=== PATIENT | female | born 1945 | race Caucasian/White ===

== ENCOUNTER 2021-04-19 16:13 | Inpatient (IN) ==
[2021-04-19] MEDS ORDERED: SODIUM CHLORIDE 0.9% 1000ML 1,000 ML IV SCH (17:00)
[2021-04-19 17:07] LABS: Basophils # (auto) 0.01 K/uL (0-0.2); Basophils % (auto) 0.1 %; Eosinophils # (auto) 0.15 K/uL (0-0.5); Eosinophils % (auto) 1.3 %; Hematocrit (blood only) 39.7 % (37-47); Hemoglobin 12.4 g/dL (12.0-16.0); Immature Granulocytes # (auto) 0.04 K/uL (0.00-0.02); Immature Granulocytes % (auto) 0.4 %; Lymphocytes # (auto) 1.23 K/uL (1.2-3.4); Lymphocytes % (auto) 11.1 %; Mean Corpuscular Hemoglobin 28.4 pg (25-34); Mean Corpuscular Hgb Conc 31.2 g/dL (32-36); Mean Corpuscular Volume 90.8 fL (80-100); Mean Platelet Volume 10.1 fL (7.4-10.4); Monocytes # (auto) 0.73 K/uL (0.11-0.59); Monocytes % (auto) 6.6 %; Neutrophils # (auto) 8.97 K/uL (1.4-6.5); Neutrophils % (auto) 80.5 %; Platelet Count 292 K/uL (130-400); RDW Coefficient of Variation 13.6 % (11.5-14.5); RDW Standard Deviation 44.8 fL (36.4-46.3); Red Blood Count 4.37 M/uL (4.2-5.4); White Blood Count 11.13 K/uL (4.8-10.8)
[2021-04-19 17:25] LABS: Alanine Aminotransferase 17 U/L (12-78); Albumin Level 3.2 gm/dl (3.4-5.0); Aspartate Aminotransferase 12 U/L (15-37); BUN Creatinine Ratio 25.3 (10-20); Blood Urea Nitrogen 19 mg/dl (7-18); Calcium 8.9 mg/dl (8.5-10.1); Carbon Dioxide 32 mmol/L (21-32); Chloride 107 mmol/L (98-107); Creatinine Clr Calc Pharmacy 60.6 ml/min; Est GFR (African American) 88.9 ml/min; Est GFR (Non-African American) 76.7 ml/min; Glucose 87 mg/dl (70-99); Potassium 4.3 mmol/L (3.5-5.1); Sodium 140 mmol/L (136-145)
[2021-04-19 17:28] LABS: Appearance Urine Clear (Clear); Bilirubin Urine Negative (Negative); Blood Urine Negative (Negative); Color Urine Yellow; Glucose Urine UA Negative (Negative); Ketones Urine Negative (Negative); Leukocyte Esterase Urine Negative (Negative); Nitrite Urine Negative (Negative); Protein Urine Negative (Negative); Specific Gravity Urine 1.012 (1.000-1.030); Urobilinogen Urine Negative (Negative)
--- NOTE | 2021-04-19 17:34 | Emergency Department Note ---
Impression & Plan Ulcer of perineum, Sacral ulcer, Leukocytosis ED Provider Note INFORMANT: Patient ED PROVIDER(S): Laz Casper MD CHIEF COMPLAINT: Infection PLAN: Disposition: Admitted Condition: Good Outpatient prescription management: none Referral: None MEDICAL DECISION MAKING: Patient presented because of wounds on the perineum and sacrum. Examination revealed ulcerations there was surrounding erythema concerning for cellulitis. These were not improving with antifungal creams. Her intertrigo issues were responding to antifungals. The patient does have a leukocytosis. She was given a dose of IV Rocephin. CT imaging of the pelvis did not reveal any evidence of abscess or deep tissue involvement. The patient and friend and I discussed the findings. The patient has no support at home. The friend is very concerned about the patient's ability to care for herself. I discussed this with manager case. Admission for treatment and additional case management involvement was recommended. [facility] Patient was evaluated in the ER for further management. Triage Nursing notes reviewed and agree them. Vital Signs: reviewed and remarkable for hypertension Differential diagnosis: Pressure ulcers, fungal infection, cellulitis, abscess, MRSA infection, DVT, necrotizing fasciitis, dermatitis, drug eruption, allergic reaction, as well as other pathologies Diagnostics interpreted by me: ECG: Rate: 68 Rhythm:Normal sinus [place]:Normal QRS:Normal ST segements:No elevation or depression Other:No PACs or PVCs Cardiac Monitoring: Cardiac monitoring ordered by me: The patient was placed on continuous cardiac monitoring and observed. It revealed a normal sinus rhythm at 76 beats per minute without ectopy or evidence of dysrhythmia. Imaging studies: Chest x-ray. Findings: A chest x-ray was performed and revealed no pneumothorax, effusion, infiltrate, pulmonary edema, free air under the diaphragm, or wide mediastinum. Impression: No acute disease. CT scan of the pelvis is negative for acute process. HPI: The patient is a 75 year old female who presents to the Emergency Room with complaints of perineal wounds. This started about a week and a half ago and is worsening. The patient's friend that helps her with her bills visits once a month. She went in on 11 April and found the wounds after the patient was com plaining. She did take the patient to urgent care as she has currently been switching her primary care to the [facility] in [place]. They did prescribe antifungal creams because she also had redness in the skin folds of the abdomen and breast. The skin fold issues were getting better but the perineal issue was not. Patient also notes soreness in the sacral region as well. Patient does sit a lot. Caregiver was concerned as the patient does not have any family. She did have some support services however they were let go because she was not being assisted properly. She notes that the patient's home is very messy. The patient also notes the following associated symptoms, patien t denies. Current pain is rated as 4/10. Pt denies LOC, headache, fevers, chills, diaphoresis, visual changes, neck pain, chest pain, breathing difficulties, nausea, vomiting, abdominal pain, back pain, diarrhea, urinary symptoms, numbness, weakness, lymphadenopathy, rash, or other complaints. ROS: See above HPI for pertinent positives & negatives. A total of 10 systems reviewed and were otherwise negative. PAST MEDICAL HISTORY:See Below , hypertension PAST SURGICAL HISTORY:See Below, FAMILY HISTORY:See Below SOCIAL HISTORY:See Below, lives alone HOME MEDICATIONS:See Below ALLERGIES:See Below VITALS:See Below PHYSICAL EXAMINATION: GENERAL: Awake, alert, well-appearing, in no distress HENT: Normocephalic, atraumatic. Oropharynx unremarkable. EYES: Normal conjunctiva. Sclera non-icteric. NECK: Inspection normal. Non-tender. Supple. No nuchal rigidity. FROM. No masses. RESPIRATORY: Clear to auscultation. No wheezes. No rales. Normal respiratory effort. CARDIAC: Normal rate. Normal rhythm. No murmurs. No rubs. Extremities warm and well perfused. Pulses equal. No JVD. GI: Soft, non-distended. No tenderness to palpation. No rebound or guarding. No masses. RECTAL: Gluteal ulcerations noted. Hemorrhoids present. Mild surrounding erythema. Perineal ulcerations also noted. : There is vulvar ulcerations noted bilaterally. These are large and coalesced. No vesicles noted. MUSCULOSKELETAL: Atraumatic. Chest examination reveals no tenderness. The back is symmetrical on inspection without obvious abnormality. There is no CVA tenderness to palpation. No joint edema. LOWER EXTREMITIES: Calves are equal size bilaterally and non-tender. No edema. No discoloration. NEURO: Normal sensorium. No sensory or motor deficits noted. SKIN: No rash or jaundice noted. Lza Casper MD Past Med/Surg History Social History Smoking Status: Never smoker Feels Safe at Home: Yes Allergies Allergies Allergy/AdvReac Type Severity Reaction Status Date / Time fluconazole Allergy Rash Verified 04/19/21 19:20 Penicillins Allergy Unknown Verified 04/19/21 19:20 adhesive tape AdvReac skin Verified 04/19/21 19:19 irritation Home Meds Home Medications Medication Instructions Recorded Confirmed albuterol sulfate 2.5 mg CONTINUOUS NEBULIZATION Q4 04/19/21 04/19/21 PRN amitriptyline 25 mg tablet 25 mg PO HS 04/19/21 04/19/21 ascorbic acid (vitamin C) 500 mg 500 mg PO DAILY 04/19/21 04/19/21 tablet (Vitamin C) buspirone 5 mg tablet 5 mg PO TID 04/19/21 04/19/21 calcium carbonate 500 mg (1,250 1 tab PO DAILY 04/19/21 04/19/21 mg)-vitamin D3 400 unit tablet (Calcium 500 With D) cholecalciferol (vitamin D3) 25 25 mcg PO DAILY 04/19/21 04/19/21 mcg (1,000 unit) tablet (Vitamin D3) cholestyramine (with sugar) 4 gram 8 ea PO BID 04/19/21 04/19/21 powder for susp in a packet citalopram 20 mg tablet (Celexa) 20 mg PO DAILY 04/19/21 04/19/21 clotrimazole-betamethasone 1 1 applic TOPICAL UD 04/19/21 04/19/21 %-0.05 % topical cream denosumab 60 mg/mL subcutaneous 60 mg SUBCUT UD 04/19/21 04/19/21 syringe (Prolia) ferrous sulfate 325 mg (65 mg 325 mg PO DAILY 04/19/21 04/19/21 iron) tablet (iron) furosemide 40 mg tablet 60 mg PO DAILY 04/19/21 04/19/21 loratadine 10 mg tablet 10 mg PO DAILY 04/19/21 04/19/21 meloxicam 15 mg tablet (Mobic) 15 mg PO DAILY 04/19/21 04/19/21 methylcellulose (with sugar) oral 1 ea PO DAILY 04/19/21 04/19/21 powder packet mycophenolate mofetil 500 mg tablet 500 mg PO BID 04/19/21 04/19/21 nystatin 100,000 unit/gram topical 1 applic TOPICAL BID 04/19/21 04/19/21 cream omeprazole 20 mg capsule,delayed 20 mg PO DAILY 04/19/21 04/19/21 release potassium chloride 20 mEq 20 meq PO DAILY 04/19/21 04/19/21 tablet,extended release(part/cryst) tacrolimus 0.1 % topical ointment 1 applic TOPICAL UD PRN 04/19/21 04/19/21 zinc oxide 40 % topical ointment 1 applic TOPICAL UD PRN 04/19/21 04/19/21 (Diaper Rash) Results & Data (ED) Vital Signs Vital Signs - 24 hr 04/19/21 16:21 04/19/21 17:09 04/19/21 17:31 Temperature 36.2 C L Temperature Source Temporal Artery Scan Pulse Rate 72 79 68 Pulse Rate from SpO2 Sensor 79 68 Respiratory Rate 20 17 17 Respiratory Depth Normal Blood Pressure 165/79 H 188/84 H 176/77 H Blood Pressure Mean 107 118 110 Pulse Oximetry 99 96 98 Oxygen Delivery Method Room Air Sepsis Recent Fever Within 48 Hours No Sepsis New/Unexplained Change in Mental Status N/A Sepsis Action Taken by Nursing No Action Required 04/19/21 18:01 04/19/21 18:31 04/19/21 19:01 Temperature Temperature Source Pulse Rate 73 69 68 Pulse Rate from SpO2 Sensor 73 69 68 Respiratory Rate 22 19 16 Respiratory Depth Blood Pressure 198/122 H 194/119 H 188/96 H Blood Pressure Mean 147 144 126 Pulse Oximetry 97 95 96 Oxygen Delivery Method Sepsis Recent Fever Within 48 Hours Sepsis New/Unexplained Change in Mental Status Sepsis Action Taken by Nursing 04/19/21 19:30 04/19/21 20:01 04/19/21 20:30 Temperature Temperature Source Pulse Rate 71 71 73 Pulse Rate from SpO2 Sensor 71 71 72 Respiratory Rate 16 21 16 Respiratory Depth Blood Pressure 185/78 H 180/88 H Blood Pressure Mean 113 118 Pulse Oximetry 95 94 95 Oxygen Delivery Method Sepsis Recent Fever Within 48 Hours Sepsis New/Unexplained Change in Mental Status Sepsis Action Taken by Nursing 04/19/21 21:01 04/19/21 21:30 04/19/21 22:00 Temperature Temperature Source Pulse Rate 77 76 75 Pulse Rate from SpO2 Sensor 76 76 76 Respiratory Rate 19 18 18 Respiratory Depth Blood Pressure 167/68 H Blood Pressure Mean 101 Pulse Oximetry 96 97 96 Oxygen Delivery Method Sepsis Recent Fever Within 48 Hours Sepsis New/Unexplained Change in Mental Status Sepsis Action Taken by Nursing 04/19/21 22:30 04/19/21 23:00 04/19/21 23:30 Temperature Temperature Source Pulse Rate 76 79 79 Pulse Rate from SpO2 Sensor 76 78 80 Respiratory Rate 21 18 21 Respiratory Depth Blood Pressure 158/65 H 154/72 H 150/67 H Blood Pressure Mean 96 99 94 Pulse Oximetry 96 95 95 Oxygen Delivery Method Sepsis Recent Fever Within 48 Hours Sepsis New/Unexplained Change in Mental Status Sepsis Action Taken by Nursing 04/20/21 00:00 04/20/21 00:30 Temperature Temperature Source Pulse Rate 78 76 Pulse Rate from SpO2 Sensor 78 76 Respiratory Rate 19 19 Respiratory Depth Blood Pressure 157/89 H 151/99 H Blood Pressure Mean 111 116 Pulse Oximetry 96 96 Oxygen Delivery Method Sepsis Recent Fever Within 48 Hours Sepsis New/Unexplained Change in Mental Status Sepsis Action Taken by Nursing Laboratory Data Result diagrams: 04/19/21 16:58 04/19/21 16:58 Lab Results 04/19/21 04/19/21 04/19/21 Range/Units 16:58 16:58 16:58 WBC 11.13 H (4.8-10.8) K/uL RBC 4.37 (4.2-5.4) M/uL Hgb 12.4 (12.0-16.0) g/dL Hct 39.7 (37-47) % MCV 90.8 (80-100) fL MCH 28.4 (25-34) pg MCHC 31.2 L (32-36) g/dL RDW Std Deviation 44.8 (36.4-46.3) fL RDW Coeff of Yaritza 13.6 (11.5-14.5) % Plt Count 292 (130-400) K/uL MPV 10.1 (7.4-10.4) fL Immature Gran % (Auto) 0.4 % Neut % (Auto) 80.5 % Lymph % (Auto) 11.1 % [place] % (Auto) 6.6 % Eos % (Auto) 1.3 % Baso % (Auto) 0.1 % Neut # (Auto) 8.97 H (1.4-6.5) K/uL Lymph # (Auto) 1.23 (1.2-3.4) K/uL [place] # (Auto) 0.73 H (0.11-0.59) K/uL Eos # (Auto) 0.15 (0-0.5) K/uL Baso # (Auto) 0.01 (0-0.2) K/uL Immature Gran # (Auto) 0.04 H (0.00-0.02) K/uL Sodium 140 (136-145) mmol/L Potassium 4.3 (3.5-5.1) mmol/L Chloride 107 (98-107) mmol/L Carbon Dioxide 32 (21-32) mmol/L Anion Gap 1.0 L (3-11) BUN 19 H (7-18) mg/dl Creatinine 0.76 (0.6-1.2) mg/dl Est Cr Clr Drug Dosing 60.6 ml/min Est GFR ( Amer) 88.9 ml/min Est GFR (Non-Af Amer) 76.7 ml/min BUN/Creatinine Ratio 25.3 H (10-20) Glucose 87 (70-99) mg/dl Lactate 0.9 (0.4-2.0) mmol/L Calcium 8.9 (8.5-10.1) mg/dl Magnesium 2.0 (1.8-2.4) mg/dl Total Bilirubin 0.2 (0.2-1) mg/dl AST 12 L (15-37) U/L ALT 17 (12-78) U/L Alkaline Phosphatase 66 (45-117) U/L Troponin I < 0.015 (0-0.045) ng/ml NT-Pro-B Natriuret Pep 967 H (0-900) pg/ml Total Protein 7.0 (6.4-8.2) gm/dl Albumin 3.2 L (3.4-5.0) gm/dl Globulin 3.8 (2.5-4.0) gm/dl Albumin/Globulin Ratio 0.8 L (0.9-2) TSH 0.576 (0.300-4.500) uIu/ml Urine Color Urine Appearance (Clear) Urine pH (4.5-7.5) Ur Specific [place] (1.000-1.030) Urine Protein (Negative) Urine Glucose (UA) (Negative) Urine Ketones (Negative) Urine Blood (Negative) Urine Nitrite (Negative) Urine Bilirubin (Negative) Urine Urobilinogen (Negative) Ur Leukocyte Esterase (Negative) COVID-19 Eval Order SARS-CoV-2 (PCR) (Negative) 04/19/21 04/19/21 04/19/21 Range/Units 16:58 21:30 21:30 WBC (4.8-10.8) K/uL RBC (4.2-5.4) M/uL Hgb (12.0-16.0) g/dL Hct (37-47) % MCV (80-100) fL MCH (25-34) pg MCHC (32-36) g/dL RDW Std Deviation (36.4-46.3) fL RDW Coeff of Yaritza (11.5-14.5) % Plt Count (130-400) K/uL MPV (7.4-10.4) fL Immature Gran % (Auto) % Neut % (Auto) % Lymph % (Auto) % [place] % (Auto) % Eos % (Auto) % Baso % (Auto) % Neut # (Auto) (1.4-6.5) K/uL Lymph # (Auto) (1.2-3.4) K/uL [place] # (Auto) (0.11-0.59) K/uL Eos # (Auto) (0-0.5) K/uL Baso # (Auto) (0-0.2) K/uL Immature Gran # (Auto) (0.00-0.02) K/uL Sodium (136-145) mmol/L Potassium (3.5-5.1) mmol/L Chloride (98-107) mmol/L Carbon Dioxide (21-32) mmol/L Anion Gap (3-11) BUN (7-18) mg/dl Creatinine (0.6-1.2) mg/dl Est Cr Clr Drug Dosing ml/min Est GFR ( Amer) ml/min Est GFR (Non-Af Amer) ml/min BUN/Creatinine Ratio (10-20) Glucose (70-99) mg/dl Lactate (0.4-2.0) mmol/L Calcium (8.5-10.1) mg/dl Magnesium (1.8-2.4) mg/dl Total Bilirubin (0.2-1) mg/dl AST (15-37) U/L ALT (12-78) U/L Alkaline Phosphatase (45-117) U/L Troponin I (0-0.045) ng/ml NT-Pro-B Natriuret Pep (0-900) pg/ml Total Protein (6.4-8.2) gm/dl Albumin (3.4-5.0) gm/dl Globulin (2.5-4.0) gm/dl Albumin/Globulin Ratio (0.9-2) TSH (0.300-4.500) uIu/ml Urine Color Yellow Urine Appearance Clear (Clear) Urine pH 5.0 (4.5-7.5) Ur Specific [place] 1.012 (1.000-1.030) Urine Protein Negative (Negative) Urine Glucose (UA) Negative (Negative) Urine Ketones Negative (Negative) Urine Blood Negative (Negative) Urine Nitrite Negative (Negative) Urine Bilirubin Negative (Negative) Urine Urobilinogen Negative (Negative) Ur Leukocyte Esterase Negative (Negative) COVID-19 Eval Order Covid19 at [facility] SARS-CoV-2 (PCR) NEGATIVE (Negative) Administered Medications Discontinued Medications Sodium Chloride (Nss 1000ml) 1,000 mls @ 125 mls/hr IV .Q8H [id number] Stop: 04/20/21 00:59 Last Admin: 04/19/21 17:22 Dose: 125 mls/hr Documented by: [id number] Ceftriaxone Sodium (Rocephin) 2,000 mg in 70 mls @ 140 mls/hr IV NOW STA Stop: 04/19/21 19:18 Last Infusion: 04/19/21 20:00 Dose: 0 mls/hr Documented by: [id number] Admin: 04/19/21 19:17 Dose: 140 mls/hr Documented by: [id number] Sodium Chloride (Nss 1000ml) 1,000 mls @ 50 mls/hr IV .Q20H ONE Stop: 04/20/21 17:00 Last Admin: 04/19/21 22:31 Dose: Not Given Documented by: [id number] Doxycycline Hyclate 100 mg/ (Dextrose) 110 mls @ 50 mls/hr IV NOW STA Stop: 04/19/21 23:45 Last Infusion: 04/20/21 00:40 Dose: 0 mls/hr Documented by: [id number] Admin: 04/19/21 22:09 Dose: 50 mls/hr Documented by: [id number] Ioversol (Optiray 320 100ml) 94 ml IV ONCE ONE Stop: 04/19/21 17:47 Last Admin: 04/19/21 17:47 Dose: 94 ml Documented by: [id number] Lisinopril (Lisinopril 5 Mg Tab) 2.5 mg PO ONE STA Stop: 04/19/21 21:06 Last Admin: 04/19/21 22:41 Dose: 2.5 mg Documented by: [id number] Imaging Data Radiologist's Impression: Chest X-Ray 04/19/21 16:46 SINGLE VIEW CHEST CLINICAL HISTORY: Generalized weakness. FINDINGS: An AP, portable, upright chest radiograph is obtained. No prior studies are available for comparison at the time of dictation. The heart is enlarged. There is pulmonary vascular congestion. Scarring/atelectasis is noted at the lung bases. No airspace consolidation or large pleural effusion is identified. No pneumothorax is seen. The skeletal structures are osteopenic. There is chronic posttraumatic deformity of the left proximal humerus. IMPRESSION: Cardiomegaly with pulmonary vascular congestion. ACT 112: Negative or not required by law. Electronically signed by: Tyler Munoz M.D. 04/19/2021 6:[address] 04/19/21 17:28 CT SCAN OF THE PELVIS WITH IV CONTRAST CLINICAL HISTORY: Perineal wound. Leukocytosis. COMPARISON STUDY: No priors. TECHNIQUE: Following the IV administration of 94 cc of Optiray 320, CT scan of the pelvis is performed from the pelvic inlet to the proximal femora. Images are reviewed in the axial, sagittal, and coronal planes. IV contrast was administered without complication. A dose lowering technique was utilized adhering to the principles of ALARA. CT DOSE: 376.48 mGy.cm FINDINGS: The bladder is normal as visualized. The uterus is surgically absent. No adnexal lesion is seen. There is a fat-containing right inguinal hernia. Imaged loops of small bowel and colon are normal in caliber with no evidence of obstruction. There is advanced diverticulosis of the visualized left colon without CT evidence of acute diverticulitis. No pelvic sidewall or inguinal adenopathy is seen. The iliac vessels are patent. No intraperitoneal free air or ascites is seen in the pelvis. The perianal soft tissues are normal as visualized. There is no perianal fluid collection. The perineal soft tissues are normal in appearance. There is no CT evidence of wound, inflammatory process, or fluid collection. The skeletal structures are osteopenic. The bony pelvis appears intact. No lytic or blastic lesion is seen. There is generalized atrophy of the regional musculature. IMPRESSION: 1. No acute abnormality is identified. 2. Specifically, there is no CT evidence of wound or fluid collection in the perineal soft tissues as clinically queried. Clinical correlation will be required. 3. Advanced diverticulosis of the visualized colon without CT evidence of acute diverticulitis. ACT 112: Negative or not required by law. Electronically signed by: Tyler Munoz M.D. 04/19/2021 6:27 PM Discharge Plan Visit Data Chief Complaint: Infection Stated Complaint: SORE IN GENITAL AREA,CREAM NOT HELPING,WORSENING ED Provider: Laz Casper Discharge Problem: Ulcer of perineum, Sacral ulcer, Leukocytosis Discharge Instructions Interventions: ED Discharge Assessment Last Done: 04/20/21 00:53 Forms Stand Alone Forms: [facility] Prescriptions Prescriptions: No Action furosemide 40 mg tablet 60 mg PO DAILY RF: 0 buspirone 5 mg tablet 5 mg PO TID RF: 0 albuterol sulfate 2.5 mg /3 mL (0.083 %) solution for nebulization 2.5 mg continuous nebulization Q4 PRN (Reason: Wheezing) RF: 0 meloxicam [Mobic] 15 mg tablet 15 mg PO DAILY RF: 0 mycophenolate mofetil 500 mg tablet 500 mg PO BID RF: 0 citalopram [Celexa] 20 mg Tablet 20 mg PO DAILY RF: 0 potassium chloride 20 mEq tablet,ER particles/crystals 20 meq PO DAILY RF: 0 amitriptyline 25 mg tablet 25 mg PO HS RF: 0 tacrolimus 0.1 % ointment 1 applic TOPICAL UD PRN (Reason: ..) RF: 0 ferrous sulfate [iron] 325 mg (65 mg iron) Tablet 325 mg PO DAILY RF: 0 nystatin 100,000 unit/gram Cream 1 applic TOPICAL BID RF: 0 clotrimazole-betamethasone 1-0.05 % cream 1 applic TOPICAL UD RF: 0 omeprazole 20 mg capsule,delayed release(DR/EC) 20 mg PO DAILY RF: 0 loratadine 10 mg tablet 10 mg PO DAILY RF: 0 Citrucel Fiber Laxative Powder In Packet 1 ea PO DAILY RF: 0 calcium carbonate-vitamin D3 [Calcium 500 With D] 500 mg(1,250mg) -400 unit Tablet 1 tab PO DAILY RF: 0 zinc oxide [Diaper Rash] 40 % ointment 1 applic TOPICAL UD PRN (Reason: Diaper Rash) RF: 0 Prolia 60 mg/mL Syringe 60 mg SUBCUT UD RF: 0 ascorbic acid (vitamin C) [Vitamin C] 500 mg Tablet 500 mg PO DAILY RF: 0 cholestyramine (with sugar) 4 gram powder in packet 8 ea PO BID RF: 0 cholecalciferol (vitamin D3) [Vitamin D3] 25 mcg (1,000 unit) Tablet 25 mcg PO DAILY RF: 0 Referrals Referrals: PCP,NO [Primary Care Provider] -
[2021-04-19 17:36] LABS: Albumin Globulin Ratio 0.8 (0.9-2); Alkaline Phosphatase 66 U/L (45-117); Bilirubin,Total 0.2 mg/dl (0.2-1); Globulin 3.8 gm/dl (2.5-4.0); Thyroid Stimulating Hormone 0.576 uIu/ml (0.300-4.500); Troponin I < 0.015 ng/ml (0-0.045)
[2021-04-19] MEDS ORDERED: OPTIRAY 320 100ml IV ONE (17:46)
--- NOTE | 2021-04-19 18:28 | CT Scan Report ---
CT SCAN OF THE PELVIS WITH IV CONTRAST CLINICAL HISTORY: Perineal wound. Leukocytosis. COMPARISON STUDY: No priors. TECHNIQUE: Following the IV administration of 94 cc of Optiray 320, CT scan of the pelvis is perform ed from the pelvic inlet to the proximal femora. Images are reviewed in the axial, sagittal, and marisela nal planes. IV contrast was administered without complication. A dose lowering technique was utilize d adhering to the principles of ALARA. CT DOSE: 376.48 mGy.cm FINDINGS: The bladder is normal as visualized. The uterus is surgically absent. No adnexal lesion is seen. Ther e is a fat-containing right inguinal hernia. Imaged loops of small bowel and colon are normal in rodney josette with no evidence of obstruction. There is advanced diverticulosis of the visualized left colon wi thout CT evidence of acute diverticulitis. No pelvic sidewall or inguinal adenopathy is seen. The burak ac vessels are patent. No intraperitoneal free air or ascites is seen in the pelvis. The perianal soft tissues are normal as visualized. There is no perianal fluid collection. The perine al soft tissues are normal in appearance. There is no CT evidence of wound, inflammatory process, or fluid collection. The skeletal structures are osteopenic. The bony pelvis appears intact. No lytic or blastic lesion is seen. There is generalized atrophy of the regional musculature. IMPRESSION: 1. No acute abnormality is identified. 2. Specifically, there is no CT evidence of wound or fluid collection in the perineal soft tissues as clinically queried. Clinical correlation will be required. 3. Advanced diverticulosis of the visualized colon without CT evidence of acute diverticulitis. ACT 112: Negative or not required by law. Electronically signed by: Tyler Munoz M.D. 04/19/2021 6:27 PM
--- NOTE | 2021-04-19 18:35 | XRay Report ---
SINGLE VIEW CHEST CLINICAL HISTORY: Generalized weakness. FINDINGS: An AP, portable, upright chest radiograph is obtained. No prior studies are available for c omparison at the time of dictation. The heart is enlarged. There is pulmonary vascular congestion. S carring/atelectasis is noted at the lung bases. No airspace consolidation or large pleural effusion i s identified. No pneumothorax is seen. The skeletal structures are osteopenic. There is chronic postt raumatic deformity of the left proximal humerus. IMPRESSION: Cardiomegaly with pulmonary vascular congestion. ACT 112: Negative or not required by law. Electronically signed by: Tyler Munoz M.D. 04/19/2021 6:33 PM
[2021-04-19] MEDS ORDERED: cefTRIAXone SODIUM 2,000 MG/70 ML BAG IV STA (18:49)
[2021-04-19] MEDS ORDERED: SODIUM CHLORIDE 0.9% 1000ML 1,000 ML IV ONE (21:01)
[2021-04-19] MEDS ORDERED: lisinopril 5 MG TAB PO STA (21:05)
[2021-04-19 21:11] LABS: NT Pro B Type Natriuretic Pept 967 pg/ml (0-900)
[2021-04-19] MEDS ORDERED: DOXYCYCLINE HYCLATE 100 MG in DEXTROSE 5% 100 ML IV STA (21:34)
--- NOTE | 2021-04-19 21:35 | History & Physical Report ---
Date of Service April 19, 2021 Assessment & Plan (1) Asymptomatic hypertensive urgency: Plan: Likely chronic given cardiomegaly and CXR Perineal wounds with secondary infection hx bullous pemphigoid on CellCept and topical tacrolimus, No sepsis for now asthma/COPD, stable Hyperglycemia rule out DM mild cognitive impairment as per records functional disability Medical telemetry given BP elevation Lisinopril Doxycycline for wound infection Continue CellCept and topical tacrolimus Wound care consult for perineal wounds Check hemoglobin A1c PT OT eval Social service RE discharge planning, possible [facility] placement DVT prophylaxis with Lovenox subcu Full code Patient requesting for her friend to be updated of plan of care. Ms. Jena Reynolds, contact #[phone]. Text document was generated using [employer] voice recognition software. It may contain grammatical or spelling errors. Kindly contact undersigned for clarification of any documentation item in question. History of Present Illness Chief Complaint: Perineal wounds, inability to care for self as per records Primary Care Provider: Dr. Mccrary History obtained from patient, patient's friend, and records. Medical history significant for asthma/COPD, bullous pemphigoid on CellCept and topical tacrolimus, mild cognitive impairment as per records, anxiety/mood disorder. Patient has had bullous pemphigoid involving her face and her genital area since last year. CellCept and topical tacrolimus prescribed by [facility] real estate legal secretary. Patient brought to [facility] ER 4 days ago for a possible yeast infection on patient's groin and under her breasts and failure to thrive as per documentation. Patient has had rash for about 2 weeks. Scaly red erythematous plaques noted on patient's groin and under the breasts. ER provider prescribed topical clotrimazole for possible fungal rash. Arrangements for admission at the [facility] for patient once bed available. Patient subsequently discharged home with caregiver help for a few hours a day. No improvement in perineal wound and concerns for patient's well-being at home as per friend. Patient denies chest pain, S OB, fever, chills. Patient brought to the ER for evaluation. Given ceftriaxone at the ER. Medical History as above Surgical History : Breast biopsy, cholecystostomy Family History : Heart disease Personal/Social history : Past tobacco abuse, no EtOH intake, retired from factory work, lives by herself Allergies Allergy/AdvReac Type Severity Reaction Status Date / Time fluconazole Allergy Rash Verified 04/19/21 19:20 Penicillins Allergy Unknown Verified 04/19/21 19:20 adhesive tape AdvReac skin Verified 04/19/21 19:19 irritation Home Medications Medication Instructions Recorded Confirmed Type albuterol sulfate 2.5 mg CONTINUOUS NEBULIZATION Q4 04/19/21 04/19/21 History PRN amitriptyline 25 mg tablet 25 mg PO HS 04/19/21 04/19/21 History ascorbic acid (vitamin C) 500 mg 500 mg PO DAILY 04/19/21 04/19/21 History tablet (Vitamin C) buspirone 5 mg tablet 5 mg PO TID 04/19/21 04/19/21 History calcium carbonate 500 mg (1,250 1 tab PO DAILY 04/19/21 04/19/21 History mg)-vitamin D3 400 unit tablet (Calcium 500 With D) cholecalciferol (vitamin D3) 25 25 mcg PO DAILY 04/19/21 04/19/21 History mcg (1,000 unit) tablet (Vitamin D3) cholestyramine (with sugar) 4 gram 8 ea PO BID 04/19/21 04/19/21 History powder for susp in a packet citalopram 20 mg tablet (Celexa) 20 mg PO DAILY 04/19/21 04/19/21 History clotrimazole-betamethasone 1 1 applic TOPICAL UD 04/19/21 04/19/21 History %-0.05 % topical cream denosumab 60 mg/mL subcutaneous 60 mg SUBCUT UD 04/19/21 04/19/21 History syringe (Prolia) ferrous sulfate 325 mg (65 mg 325 mg PO DAILY 04/19/21 04/19/21 History iron) tablet (iron) furosemide 40 mg tablet 60 mg PO DAILY 04/19/21 04/19/21 History loratadine 10 mg tablet 10 mg PO DAILY 04/19/21 04/19/21 History meloxicam 15 mg tablet (Mobic) 15 mg PO DAILY 04/19/21 04/19/21 History methylcellulose (with sugar) oral 1 ea PO DAILY 04/19/21 04/19/21 History powder packet mycophenolate mofetil 500 mg tablet 500 mg PO BID 04/19/21 04/19/21 History nystatin 100,000 unit/gram topical 1 applic TOPICAL BID 04/19/21 04/19/21 History cream omeprazole 20 mg capsule,delayed 20 mg PO DAILY 04/19/21 04/19/21 History release potassium chloride 20 mEq 20 meq PO DAILY 04/19/21 04/19/21 History tablet,extended release(part/cryst) tacrolimus 0.1 % topical ointment 1 applic TOPICAL UD PRN 04/19/21 04/19/21 History zinc oxide 40 % topical ointment 1 applic TOPICAL UD PRN 04/19/21 04/19/21 History (Diaper Rash) Past Med/Surg History Social History Smoking Status: Never smoker Hx Alcohol Use: No Hx Substance Use: No Preferred Language: Icelandic Current Living Situation: Alone Other Information That Helps Us Care for You: No Feels Safe at Home: Yes Safety Concerns: Feels Safe At This Time Assistive Devices: None Review of Systems Review of Systems: As per HPI, all 10 systems reviewed, all other ROS negative Physical Exam Physical Exam: GENERAL: Comfortable, pleasant, obese, no respiratory distress SKIN: Normal color, warm HEENT: Bespectacled, [place] palpebral conjunctivae, no ptosis, moist buccal mucosa NECK : Supple, short neck, no tenderness CHEST : CTA, no tenderness HEART : RRR, no obvious murmurs ABDOMEN: Some distention, nontender : Excoriation over perineal area with surrounding erythema, minimal tenderness EXTREMITIES : Minimal LE swelling, no LE tenderness, no other conspicuous deformities noted NEUROLOGIC : Coherent, no facial asymmetry, no other gross focality Results & Data Results & Data ([facility]) Vital Signs (Past 12 Hours) Vital Signs Temp Pulse Resp BP Pulse Ox 04/19/21 20:30 73 16 95 04/19/21 20:01 71 21 180/88 H 94 04/19/21 19:30 71 16 185/78 H 95 04/19/21 19:01 68 16 188/96 H 96 04/19/21 18:31 69 19 194/119 H 95 04/19/21 18:01 73 22 198/122 H 97 04/19/21 17:31 68 17 176/77 H 98 04/19/21 17:09 79 17 188/84 H 96 04/19/21 16:21 36.2 C L 72 20 165/79 H 99 Laboratory Results Laboratory Results WBC 11.13 K/uL (4.8-10.8) H 08/28/21 16:58 RBC 4.37 M/uL (4.2-5.4) 04/19/21 16:58 Hgb 12.4 g/dL (12.0-16.0) 04/19/21 16:58 Hct 39.7 % (37-47) 04/19/21 16:58 MCV 90.8 fL (80-100) 04/19/21 16:58 MCH 28.4 pg (25-34) 04/19/21 16:58 MCHC 31.2 g/dL (32-36) L 04/19/21 16:58 RDW Std Deviation 44.8 fL (36.4-46.3) 04/19/21 16:58 RDW Coeff of Yaritza 13.6 % (11.5-14.5) 04/19/21 16:58 Plt Count 292 K/uL (130-400) 04/19/21 16:58 MPV 10.1 fL (7.4-10.4) 04/19/21 16:58 Immature Gran % (Auto) 0.4 % 04/19/21 16:58 Neut % (Auto) 80.5 % 04/19/21 16:58 Lymph % (Auto) 11.1 % 04/19/21 16:58 [place] % (Auto) 6.6 % 04/19/21 16:58 Eos % (Auto) 1.3 % 04/19/21 16:58 Baso % (Auto) 0.1 % 04/19/21 16:58 Neut # (Auto) 8.97 K/uL (1.4-6.5) H 04/19/21 16:58 Lymph # (Auto) 1.23 K/uL (1.2-3.4) 04/19/21 16:58 [place] # (Auto) 0.73 K/uL (0.11-0.59) H 04/19/21 16:58 Eos # (Auto) 0.15 K/uL (0-0.5) 04/19/21 16:58 Baso # (Auto) 0.01 K/uL (0-0.2) 04/19/21 16:58 Immature Gran # (Auto) 0.04 K/uL (0.00-0.02) H 04/19/21 16:58 Sodium 140 mmol/L (136-145) 04/19/21 16:58 Potassium 4.3 mmol/L (3.5-5.1) 04/19/21 16:58 Chloride 107 mmol/L (98-107) 04/19/21 16:58 Carbon Dioxide 32 mmol/L (21-32) 04/19/21 16:58 Anion Gap 1.0 (3-11) L 04/19/21 16:58 BUN 19 mg/dl (7-18) H 04/19/21 16:58 Creatinine 0.76 mg/dl (0.6-1.2) 04/19/21 16:58 Est Cr Clr Drug Dosing 60.6 ml/min 04/19/21 16:58 Est GFR ( Amer) 88.9 ml/min 04/19/21 16:58 Est GFR (Non-Af Amer) 76.7 ml/min 04/19/21 16:58 BUN/Creatinine Ratio 25.3 (10-20) H 04/19/21 16:58 Glucose 87 mg/dl (70-99) 04/19/21 16:58 Lactate 0.9 mmol/L (0.4-2.0) 04/19/21 16:58 Calcium 8.9 mg/dl (8.5-10.1) 04/19/21 16:58 Magnesium 2.0 mg/dl (1.8-2.4) 04/19/21 16:58 Total Bilirubin 0.2 mg/dl (0.2-1) 04/19/21 16:58 AST 12 U/L (15-37) L 04/19/21 16:58 ALT 17 U/L (12-78) 04/19/21 16:58 Alkaline Phosphatase 66 U/L (45-117) 04/19/21 16:58 Troponin I < 0.015 ng/ml (0-0.045) 04/19/21 16:58 NT-Pro-B Natriuret Pep 967 pg/ml (0-900) H 04/19/21 16:58 Total Protein 7.0 gm/dl (6.4-8.2) 04/19/21 16:58 Albumin 3.2 gm/dl (3.4-5.0) L 04/19/21 16:58 Globulin 3.8 gm/dl (2.5-4.0) 04/19/21 16:58 Albumin/Globulin Ratio 0.8 (0.9-2) L 04/19/21 16:58 TSH 0.576 uIu/ml (0.300-4.500) 04/19/21 16:58 Urine Color Yellow 04/19/21 16:58 Urine Appearance Clear (Clear) 04/19/21 16:58 Urine pH 5.0 (4.5-7.5) 04/19/21 16:58 Ur Specific [place] 1.012 (1.000-1.030) 04/19/21 16:58 Urine Protein Negative (Negative) 04/19/21 16:58 Urine Glucose (UA) Negative (Negative) 04/19/21 16:58 Urine Ketones Negative (Negative) 04/19/21 16:58 Urine Blood Negative (Negative) 04/19/21 16:58 Urine Nitrite Negative (Negative) 04/19/21 16:58 Urine Bilirubin Negative (Negative) 04/19/21 16:58 Urine Urobilinogen Negative (Negative) 04/19/21 16:58 Ur Leukocyte Esterase Negative (Negative) 04/19/21 16:58 Impressions Chest X-Ray 04/19/21 16:46 SINGLE VIEW CHEST CLINICAL HISTORY: Generalized weakness. FINDINGS: An AP, portable, upright chest radiograph is obtained. No prior studies are available for comparison at the time of dictation. The heart is enlarged. There is pulmonary vascular congestion. Scarring/atelectasis is noted at the lung bases. No airspace consolidation or large pleural effusion is identified. No pneumothorax is seen. The skeletal structures are osteopenic. There is chronic posttraumatic deformity of the left proximal humerus. IMPRESSION: Cardiomegaly with pulmonary vascular congestion. ACT 112: Negative or not required by law. Electronically signed by: Tyler Munoz M.D. 04/19/2021 6:[address] 04/19/21 17:28 CT SCAN OF THE PELVIS WITH IV CONTRAST CLINICAL HISTORY: Perineal wound. Leukocytosis. COMPARISON STUDY: No priors. TECHNIQUE: Following the IV administration of 94 cc of Optiray 320, CT scan of the pelvis is performed from the pelvic inlet to the proximal femora. Images are reviewed in the axial, sagittal, and coronal planes. IV contrast was administered without complication. A dose lowering technique was utilized adhering to the principles of ALARA. CT DOSE: 376.48 mGy.cm FINDINGS: The bladder is normal as visualized. The uterus is surgically absent. No adnexal lesion is seen. There is a fat-containing right inguinal hernia. Imaged loops of small bowel and colon are normal in caliber with no evidence of obstruction. There is advanced diverticulosis of the visualized left colon without CT evidence of acute diverticulitis. No pelvic sidewall or inguinal adenopathy is seen. The iliac vessels are patent. No intraperitoneal free air or ascites is seen in the pelvis. The perianal soft tissues are normal as visualized. There is no perianal fluid collection. The perineal soft tissues are normal in appearance. There is no CT evidence of wound, inflammatory process, or fluid collection. The skeletal structures are osteopenic. The bony pelvis appears intact. No lytic or blastic lesion is seen. There is generalized atrophy of the regional musculature. IMPRESSION: 1. No acute abnormality is identified. 2. Specifically, there is no CT evidence of wound or fluid collection in the perineal soft tissues as clinically queried. Clinical correlation will be required. 3. Advanced diverticulosis of the visualized colon without CT evidence of acute diverticulitis. ACT 112: Negative or not required by law. Electronically signed by: Tyler Munoz M.D. 04/19/2021 6:27 PM Diagnostic Findings EKG as per my interpretation rate 65, NSR, normal axis, no ischemia
[2021-04-20] MEDS ORDERED: traMADol HCL 50 MG TABLET PO PRN (01:40)
[2021-04-20] MEDS ORDERED: ACETAMINOPHEN 325 MG TAB PO PRN (01:40)
[2021-04-20] MEDS ORDERED: PROMETHAZINE HCL 12.5 MG in SODIUM CHLORIDE 0.9% 50 ML IV PRN (01:40)
[2021-04-20] MEDS: busPIRone 5 MG TAB PO SCH ×4 (02:42→20:44)
[2021-04-20] MEDS: CLOTRIMAZOLE 1% CR 15 GM TUBE EXT SCH ×3 (02:42→20:45)
[2021-04-20 06:13] LABS: Basophils # (auto) 0.01 K/uL (0-0.2); Basophils % (auto) 0.1 %; Eosinophils # (auto) 0.05 K/uL (0-0.5); Eosinophils % (auto) 0.6 %; Hematocrit (blood only) 36.8 % (37-47); Hemoglobin 11.3 g/dL (12.0-16.0); Immature Granulocytes # (auto) 0.03 K/uL (0.00-0.02); Immature Granulocytes % (auto) 0.4 %; Lymphocytes # (auto) 0.61 K/uL (1.2-3.4); Lymphocytes % (auto) 7.1 %; Mean Corpuscular Hemoglobin 27.6 pg (25-34); Mean Corpuscular Hgb Conc 30.7 g/dL (32-36); Mean Corpuscular Volume 89.8 fL (80-100); Monocytes # (auto) 0.36 K/uL (0.11-0.59); Monocytes % (auto) 4.2 %; Neutrophils # (auto) 7.48 K/uL (1.4-6.5); Neutrophils % (auto) 87.6 %; Platelet Count 224 K/uL (130-400); RDW Coefficient of Variation 13.7 % (11.5-14.5); RDW Standard Deviation 44.9 fL (36.4-46.3); White Blood Count 8.54 K/uL (4.8-10.8)
[2021-04-20 06:42] LABS: BUN Creatinine Ratio 22.2 (10-20); Calcium 8.3 mg/dl (8.5-10.1); Creatinine Clr Calc Pharmacy 69.8 ml/min; Est GFR (African American) 100.2 ml/min; Est GFR (Non-African American) 86.4 ml/min; Potassium 3.9 mmol/L (3.5-5.1)
[2021-04-20] MEDS: LORATADINE 10 MG TAB PO SCH (08:42)
[2021-04-20] MEDS: PANTOprazole 40 MG TAB PO SCH (08:42)
[2021-04-20] MEDS: MYCOPHENOLATE MOFETIL 250 MG CAP PO SCH ×2 (08:42→20:43)
[2021-04-20] MEDS: ENOXAPARIN INJ 40 MG/0.4 ML SYR SQ SCH (08:42)
[2021-04-20] MEDS: CITALOPRAM 20 MG TAB PO SCH (08:42)
[2021-04-20] MEDS ORDERED: DOXYCYCLINE HYCLATE 100 MG CAP PO SCH (09:00)
[2021-04-20] MEDS ORDERED: FERROUS SULFATE 325 MG TAB PO SCH (12:00)
--- NOTE | 2021-04-20 12:21 | Hospitalist Progress Note ---
Date of Service April 20, 2021 Assessment & Plan (1) Asymptomatic hypertensive urgency: Plan: Patient with an elevated blood pressure on arrival as high as 198/122. This is likely secondary to ongoing pain and discomfort in her vaginal area. She was treated with lisinopril 2.5 mg oral tablet overnight and blood pressure has improved into the normal range. We will continue to monitor for the need for a antihypertensives regularly and continue to aggressively manage her pain and discomfort. (2) Sacral ulcer: Plan: Unable to evaluate at this time, will await wound care provider assessment. Continue offloading of this area. (3) Cellulitis of labia: Plan: We will change doxycycline p.o. to IV Clinda and IV ciprofloxacin in setting of possible cellulitis of labia. Continue to monitor response. We will continue to use creams as above. Of note, CT scan was negative for abscess or other structural cause for her discomfort. Also, UA was clear of infection. (4) Ulcer of perineum: Plan: Zinc oxide and clotrimazole were prescribed on 04/15 at the [facility] for placement in her intertriginous areas and on her external vaginal area that was affected. Per surgery, the clotrimazole cream appears to be working and will continue this. Also will continue zinc oxide for comfort especially after urinating or bowel movements. Of note she has been reportedly using tacrolimus in this area, which is a cream she is used traditionally for bullous pemphigoid. We will hold this for now until further assessment by wound care provider and gynecology. (5) BP (bullous pemphigoid): Plan: Continue CellCept per home regimen for treatment of bullous pemphigoid, holding tacrolimus topical cream at this time. (6) Mild cognitive impairment: Plan: Noted in outpatient record and on exam. Assistance required from case management, question the need for involvement of office of aging. (7) Depression: Plan: Continue BuSpar and Celexa per home regimen. (8) DVT prophylaxis: Plan: Lovenox Full code Disposition- The patient presented to [facility] ER on 04/15/2021 with reports of a yeast infections/groin issues. Caregivers at that time expressed concern t hat she is not taking daily showers. There was concern she is not able to care for herself at home. fire manager at [facility] arranged for patient to go to [facility] but no bed was available till the following morning at 11 AM. As the patient was stable she was not admitted to the hospital and sent home instead. At this point clear concern has been expressed for the patient's ability to care for herself and will consult case management to assist with possible placement and further investigation and into her home environment and support system resources. Jena Gilmore DO [facility] and [facility]ticipated Discharge Date Admission Date: April 20, 2021 Subjective The patient is a 75-year-old female who lives alone who presented because of wounds on the perineum and sacrum. She reports "pain inside" and points to her groin area. She has been using an antifungal cream at home. She is not septic but does have a mild leukocytosis. She was started on IV Rocephin in the ER and continued on oral doxycycline on admission. CT image of the pelvis did not reveal any evidence of abscess or deep tissue involvement. Patient presented with a family friend/caregiver who noted the patient's home is very messy and she questions the ability of the patient take care of herself. Patient reports persistent pain and some itching, denies vaginal discharge, denies odor, denies vaginal bleeding. She reports some dysuria but UA is clear. Denies fever or chills. Reports the discomfort has been going on for a matter of days. She is also been adding creams to external vaginal area, however, she is a poor historian and it is unclear the extent she has been using this. Review of Systems Review of Systems: All systems were reviewed and negative except as indicated in HPI above. Physical Exam Physical Exam: CONSTITUTIONAL: WNWD, vitals as above, generally well- appearing, easily ambulates independently EYES: normal conjunctivae, no scleral icterus ENT: external ear and nose normal, MMM NECK: trachea midline RESPIRATORY: clear to auscultation bilaterally, no crackles, rales or wheezes, normal respiratory effort CARDIOVASCULAR: regular rate and rhythm, S1 and 2 heard without murmurs, gallops or rubs, no JVD, no peripheral edema GASTROINTESTINAL: soft, nontender, nondistended, no guarding : external vaginal area evaluated, some cream in place, light is poor and ulcerations are not clear, however, there is clear swelling of the vaginal labia generally. No internal exam or palpation of the area was performed. Will defer to wound care providers and TEMPORARY OFFICE ASSISTANT MUSCULOSKELETAL: strength 5/5 throughout, head is normocephalic and atraumatic, neck supple SKIN: warm and dry, as above. NEUROLOGIC: CN 2-12 grossly intact, no sensory deficit, normal cognition, normal speech, no tremor PSYCHIATRIC: alert cooperative and answering questions appropriately. Results & Data Results & Data ([facility]) Vital Signs (Past 12 Hours) Vital Signs Temp Pulse Pulse Resp BP BP Pulse Ox 04/20/21 11:51 36.7 C 72 18 152/79 H 94 04/20/21 07:48 37.7 C H 74 16 137/82 93 04/20/21 07:42 68 04/20/21 03:33 37.3 C 72 22 143/74 H 94 04/20/21 01:59 83 04/20/21 01:00 36.9 C 82 20 187/83 H 94 04/20/21 00:30 76 19 151/99 H 96 Pulse Ox 04/20/21 11:51 04/20/21 07:48 04/20/21 07:42 04/20/21 03:33 04/20/21 01:59 04/20/21 01:00 94 04/20/21 00:30 Laboratory Results Short CBC 04/19/21 04/20/21 Range/Units 16:58 05:54 WBC 11.13 H 8.54 (4.8-10.8) K/uL Hgb 12.4 11.3 L (12.0-16.0) g/dL Hct 39.7 36.8 L (37-47) % Plt Count 292 224 (130-400) K/uL BMP 04/19/21 04/20/21 16:58 05:54 Sodium 140 141 Potassium 4.3 3.9 Chloride 107 110 H Carbon Dioxide 32 26 BUN 19 H 15 Creatinine 0.76 0.66 Glucose 87 92 Calcium 8.9 8.3 L Cardiac Enzymes 04/19/21 Range/Units 16:58 Troponin I < 0.015 (0-0.045) ng/ml Liver Function 04/19/21 Range/Units 16:58 Total Bilirubin 0.2 (0.2-1) mg/dl AST 12 L (15-37) U/L ALT 17 (12-78) U/L Alkaline Phosphatase 66 (45-117) U/L Albumin 3.2 L (3.4-5.0) gm/dl Urine 04/19/21 Range/Units 16:58 Urine Color Yellow Urine Appearance Clear (Clear) Urine pH 5.0 (4.5-7.5) Ur Specific [place] 1.012 (1.000-1.030) Urine Protein Negative (Negative) Urine Glucose (UA) Negative (Negative) Medications Administered Current Inpatient Medications Acetaminophen (Acetaminophen 325 Mg Tab) 650 mg PO Q4H PRN PRN Reason: Pain or Fever Stop: 05/20/21 01:39 Amitriptyline HCl (Amitriptyline Hcl 25 Mg Tab) 25 mg PO HS [facility] Stop: 05/20/21 20:59 Buspirone HCl (Buspirone 5 Mg Tab) 5 mg PO TID GÓMEZ Stop: 05/20/21 01:39 Last Admin: 04/20/21 08:41 Dose: 5 mg Documented by: Citalopram Hydrobromide (Citalopram 20 Mg Tab) 20 mg PO DAILY GÓMEZ Stop: 05/20/21 08:59 Last Admin: 04/20/21 08:42 Dose: 20 mg Documented by: Clotrimazole (Clotrimazole 1% Cr 15 Gm Tube) 1 appln EXT BID [facility] Stop: 05/20/21 01:39 Last Admin: 04/20/21 08:42 Dose: 1 appln Documented by: Enoxaparin Sodium (Enoxaparin Inj 40 Mg/0.4 Ml Syr) 40 mg SQ QAM GÓMEZ Stop: 05/20/21 08:59 Last Admin: 04/20/21 08:42 Dose: 40 mg Documented by: Ferrous Sulfate (Ferrous Sulfate 325 Mg Tab) 325 mg PO Q24H GÓMEZ Stop: 05/20/21 11:59 Last Admin: 04/20/21 12:12 Dose: 325 mg Documented by: Promethazine HCl 12.5 mg/ (Sodium Chloride) 50.5 mls @ 202 mls/hr IV Q6H PRN PRN Reason: Nausea And Vomiting Stop: 05/20/21 01:39 Clindamycin Phosphate 600 mg/ (Dextrose) 54 mls @ 100 mls/hr IV Q8H GÓMEZ Stop: 04/27/21 12:29 Ciprofloxacin (Cipro / D5w) 400 mg in 200 mls @ 100 mls/hr IV Q12H [facility]; Protocol Stop: 04/27/21 12:29 Lisinopril (Lisinopril 2.5 Mg Tab) 2.5 mg PO HS [facility] Stop: 05/20/21 20:59 Loratadine (Loratadine 10 Mg Tab) 10 mg PO DAILY GÓMEZ Stop: 05/20/21 08:59 Last Admin: 04/20/21 08:42 Dose: 10 mg Documented by: Miscellaneous (Tacrolimus Oint~Order Awaiting Action) 1 ea N/A QS [facility] Stop: 05/20/21 07:59 Last Admin: 04/20/21 08:41 Dose: Not Given Documented by: Mycophenolate Mofetil (Mycophenolate Mofetil 250 Mg Cap) 500 mg PO BID [facility] Stop: 05/20/21 08:59 Last Admin: 04/20/21 08:42 Dose: 500 mg Documented by: Pantoprazole Sodium (Pantoprazole 40 Mg Tab) 40 mg PO DAILY GÓMEZ Stop: 05/20/21 08:59 Last Admin: 04/20/21 08:42 Dose: 40 mg Documented by: Tramadol HCl (Tramadol Hcl 50 Mg Tablet) 25 - 50 mg PO Q4H PRN PRN Reason: Pain Stop: 05/20/21 01:39
[2021-04-20] MEDS: CLINDAMYCIN 600 MG in DEXTROSE 5% 50 ML IV SCH ×2 (12:52→20:40)
--- NOTE | 2021-04-20 12:54 | Surgery Consultation ---
Date of Consultation April 20, 2021 Assessment & Plan (1) Ulcer of perineum: Nothing that appears to need debridement. The clotrimazole cream appears to be working quite readily. Obviously continue that. I'll need to return as there is no one here to help me turn the patient to evaluate her sacral ulcer. I will reevaluate this in the near future. . 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 She is being treated with CellCept as well as tacrolimus. She states that the home regimen was not working and she was having irritation and pain. The area bothering her is in her labial folds. This admission she has been started on clotrimazole cream which she states is dramatically improved her symptoms already. She is unsure when she was diagnosed with a skin disorder but she states it has been over a year. Allergies Allergy/AdvReac Type Severity Reaction Status Date / Time fluconazole Allergy Rash Verified 04/19/21 19:20 Penicillins Allergy Unknown Verified 04/19/21 19:20 adhesive tape AdvReac skin Verified 04/19/21 19:19 irritation Home Medications Medication Instructions Recorded Confirmed Type albuterol sulfate 2.5 mg CONTINUOUS NEBULIZATION Q4 04/19/21 04/19/21 History PRN amitriptyline 25 mg tablet 25 mg PO HS 04/19/21 04/19/21 History ascorbic acid (vitamin C) 500 mg 500 mg PO DAILY 04/19/21 04/19/21 History tablet (Vitamin C) buspirone 5 mg tablet 5 mg PO TID 04/19/21 04/19/21 History calcium carbonate 500 mg (1,250 1 tab PO DAILY 04/19/21 04/19/21 History mg)-vitamin D3 400 unit tablet (Calcium 500 With D) cholecalciferol (vitamin D3) 25 25 mcg PO DAILY 04/19/21 04/19/21 History mcg (1,000 unit) tablet (Vitamin D3) cholestyramine (with sugar) 4 gram 8 ea PO BID 04/19/21 04/19/21 History powder for susp in a packet citalopram 20 mg tablet (Celexa) 20 mg PO DAILY 04/19/21 04/19/21 History clotrimazole-betamethasone 1 1 applic TOPICAL UD 04/19/21 04/19/21 History %-0.05 % topical cream denosumab 60 mg/mL subcutaneous 60 mg SUBCUT UD 04/19/21 04/19/21 History syringe (Prolia) ferrous sulfate 325 mg (65 mg 325 mg PO DAILY 04/19/21 04/19/21 History iron) tablet (iron) furosemide 40 mg tablet 60 mg PO DAILY 04/19/21 04/19/21 History loratadine 10 mg tablet 10 mg PO DAILY 04/19/21 04/19/21 History meloxicam 15 mg tablet (Mobic) 15 mg PO DAILY 04/19/21 04/19/21 History methylcellulose (with sugar) oral 1 ea PO DAILY 04/19/21 04/19/21 History powder packet mycophenolate mofetil 500 mg tablet 500 mg PO BID 04/19/21 04/19/21 History nystatin 100,000 unit/gram topical 1 applic TOPICAL BID 04/19/21 04/19/21 History cream omeprazole 20 mg capsule,delayed 20 mg PO DAILY 04/19/21 04/19/21 History release potassium chloride 20 mEq 20 meq PO DAILY 04/19/21 04/19/21 History tablet,extended release(part/cryst) tacrolimus 0.1 % topical ointment 1 applic TOPICAL UD PRN 04/19/21 04/19/21 History zinc oxide 40 % topical ointment 1 applic TOPICAL UD PRN 04/19/21 04/19/21 History (Diaper Rash) Patient History Social History Smoking Status: Never smoker Hx Alcohol Use: No Hx Substance Use: No Preferred Language: Guyanese Communication Ability: Effective marital status: / Current Living Situation: Alone How many Children do You have: 0 Other Information That Helps Us Care for You: No Feels Safe at Home: Yes Safety Concerns: Feels Safe At This Time Assistive Devices: None Physical Exam Constitutional: WD/WN, vitals as above no acute distress and not ill appearing Eyes: PERRL, conjunctivae normal, anicteric sclerae EOM intact bilaterally ENMT: external ear and nose normal, oropharynx normal Ears: no hearing impairment Neck: trachea midline, no thyromegaly Respiratory: normal respiratory effort; no respiratory distress and does not use accessory muscles Cardiovascular: Rate/Rhythm: regular rate and regular rhythm Gastrointestinal (Abdomen): Soft nontender. Skin: In her labial fold there is some erythema and mild ulcerations. Clotrimazole cream in place. Minimal tenderness. Psychiatric: Orientation: alert, oriented x 3 and cooperative Results & Data ([facility]) Vital Signs (Past 12 Hours) Vital Signs Temp Pulse Pulse Resp BP Pulse Ox Pulse Ox 04/20/21 11:51 36.7 C 72 18 152/79 H 94 04/20/21 07:48 37.7 C H 74 16 137/82 93 04/20/21 07:42 68 04/20/21 03:33 37.3 C 72 22 143/74 H 94 04/20/21 01:59 83 04/20/21 01:00 36.9 C 82 20 187/83 H 94 94 PG Care Time/CCT Total # of Minutes Spent Total Time Spent with Patient: Total time spent is greater than 50% in coordination of care (as documented) at patient's floor/unit and/or counseling patient: Coding Level of Care Code 96709 Initial Inpt Care Lvl 3 Diagnoses Ulcer of perineum L98.499
[2021-04-20] MEDS: CIPROFLOXACIN / D5W 400 MG/200 ML BAG IV SCH (13:24)
[2021-04-20] MEDS ORDERED: BUTT PASTE (ZINC OXIDE 16%) 171 APPLN/57 GM JAR EXT PRN (14:32)
[2021-04-20] MEDS: FUROSEMIDE 20 MG TAB PO SCH (15:00)
[2021-04-20] MEDS: POTASSIUM CHLORIDE CRTAB 20 MEQ TABCR PO SCH (15:00)
[2021-04-20] MEDS: lisinopril 2.5 MG TAB PO SCH (20:42)
[2021-04-20] MEDS: CALCIUM 600MG + VIT D 400 IU TAB PO SCH (20:43)
[2021-04-20] MEDS: AMITRIPTYLINE HCL 25 MG TAB PO SCH (20:44)
--- NOTE | 2021-04-20 20:51 | Communication Note ---
Date of Service: April 20, 2021 Dr. Sharma requested for call back regarding consult for patient's vulvar lesions. He recommends topical steroid for patient's genital lesions secondary to bullous pemphigoid along with inpatient Dermatology consultation. I told him that patient was already on topical tacrolimus (steroid sparing agent) for the lesions at home. He recommended stopping current topical antifungal and IV antibiotics medications. Will relay to AM provider.
[2021-04-20] MEDS ORDERED: BETAMETHASONE VAL 0.1% CR 15 GM EXT PRN ×2 (21:26→21:33)
--- NOTE | 2021-04-20 21:37 | OB/GYN Consultation ---
Date of Consultation April 20, 2021 Assessment & Plan (1) BP (bullous pemphigoid): Spoke to Dr finch after seeing pt Consult dictated History of Present Illness Attending Physician: Jena Gilmore DO Allergies Allergy/AdvReac Type Severity Reaction Status Date / Time fluconazole Allergy Rash Verified 04/19/21 19:20 Penicillins Allergy Unknown Verified 04/19/21 19:20 adhesive tape AdvReac skin Verified 04/19/21 19:19 irritation Home Medications Medication Instructions Recorded Confirmed Type albuterol sulfate 2.5 mg CONTINUOUS NEBULIZATION Q4 04/19/21 04/19/21 History PRN amitriptyline 25 mg tablet 25 mg PO HS 04/19/21 04/19/21 History ascorbic acid (vitamin C) 500 mg 500 mg PO DAILY 04/19/21 04/19/21 History tablet (Vitamin C) buspirone 5 mg tablet 5 mg PO TID 04/19/21 04/19/21 History calcium carbonate 500 mg (1,250 1 tab PO DAILY 04/19/21 04/19/21 History mg)-vitamin D3 400 unit tablet (Calcium 500 With D) cholecalciferol (vitamin D3) 25 25 mcg PO DAILY 04/19/21 04/19/21 History mcg (1,000 unit) tablet (Vitamin D3) cholestyramine (with sugar) 4 gram 8 ea PO BID 04/19/21 04/19/21 History powder for susp in a packet citalopram 20 mg tablet (Celexa) 20 mg PO DAILY 04/19/21 04/19/21 History clotrimazole-betamethasone 1 1 applic TOPICAL UD 04/19/21 04/19/21 History %-0.05 % topical cream denosumab 60 mg/mL subcutaneous 60 mg SUBCUT UD 04/19/21 04/19/21 History syringe (Prolia) ferrous sulfate 325 mg (65 mg 325 mg PO DAILY 04/19/21 04/19/21 History iron) tablet (iron) furosemide 40 mg tablet 60 mg PO DAILY 04/19/21 04/19/21 History loratadine 10 mg tablet 10 mg PO DAILY 04/19/21 04/19/21 History meloxicam 15 mg tablet (Mobic) 15 mg PO DAILY 04/19/21 04/19/21 History methylcellulose (with sugar) oral 1 ea PO DAILY 04/19/21 04/19/21 History powder packet mycophenolate mofetil 500 mg tablet 500 mg PO BID 04/19/21 04/19/21 History nystatin 100,000 unit/gram topical 1 applic TOPICAL BID 04/19/21 04/19/21 History cream omeprazole 20 mg capsule,delayed 20 mg PO DAILY 04/19/21 04/19/21 History release potassium chloride 20 mEq 20 meq PO DAILY 04/19/21 04/19/21 History tablet,extended release(part/cryst) tacrolimus 0.1 % topical ointment 1 applic TOPICAL UD PRN 04/19/21 04/19/21 History zinc oxide 40 % topical ointment 1 applic TOPICAL UD PRN 04/19/21 04/19/21 History (Diaper Rash) Patient History Medical History (Updated 04/20/21 @ 14:17 by Jena Gilmore, ) Asthma, moderate persistent COPD (chronic obstructive pulmonary disease) Depression CARLOS (generalized anxiety disorder) Generalized osteoarthritis GERD (gastroesophageal reflux disease) Mild cognitive impairment Social History Smoking Status: Never smoker Hx Alcohol Use: No Hx Substance Use: No Preferred Language: Yakut Communication Ability: Effective marital status: / Current Living Situation: Alone How many Children do You have: 0 Other Information That Helps Us Care for You: No Feels Safe at Home: Yes Safety Concerns: Feels Safe At This Time Assistive Devices: None Results [facility] Data ([facility]) Vital Signs (Past 12 Hours) Vital Signs Temp Pulse Pulse Resp BP Pulse Ox 04/20/21 19:00 36.6 C 70 18 160/70 H 95 04/20/21 15:53 36.7 C 67 16 116/66 95 04/20/21 11:51 36.7 C 72 18 152/79 H 94
--- NOTE | 2021-04-20 22:48 | Electrocardiogram Report ---
Test Reason : Blood Pressure : / mmHG Vent. Rate : 068 BPM Atrial Rate : 068 BPM P-R Int : 158 ms QRS Dur : 080 ms QT Int : 394 ms P-R-T Axes : 065 046 038 degrees QTc Int : 418 ms Poor data quality, interpretation may be adversely affected Normal sinus rhythm Normal ECG No previous ECGs available Confirmed by Alexandr Guzman ([id number]) on 04/20/2021 10:47:31 PM Referred By: REFERRED SELF Confirmed By:Alexandr Guzman
--- NOTE | 2021-04-21 00:18 | Consultation Report ---
This is a STITCH WELDER consult placed by Dr. Schmidt. HISTORY OF PRESENT ILLNESS: This is a 75-year-old with known history of COPD, bullous pemphigoid and had been on medical treatment with topical tacrolimus. Patient also has history of mild cognitive im pairment, anxiety and mood disorder. The patient was in her usual state of health until 04/19/2021, when she showed up in the Emergency Room with an outbreak of pemphigoid lesions in the vulvar region. She was admitted. On admission, she has been treated with antibiotics and nystatin. STITCH WELDER was consu lted. On arrival, patient is in no acute discomfort, no shortness of breath, no chills, no fever. S he had a CT scan which was unremarkable. Patient is resting comfortably in bed. PAST MEDICAL HISTORY: As stated above, past medical history include history of COPD, bullous pemphig oid , and cognitive impairment. PAST SURGICAL HISTORY: The patient has breast biopsy and cholecystectomy. FAMILY HISTORY: History of heart disease. PHYSICAL EXAMINATION: GENERAL: The patient is resting comfortably in bed. VITALS: Have been reviewed. PELVIC: Normal female escutcheon, appropriate for age. The patient has some pelvic lesions in the v ulva, there is no significant weeping of the vulvar tissue. Physical exam showed she has flare-up of her pemphigoid. The patient is able to void without difficulty. She was able to have bowel movemen ts as well without difficulty. ____ is tender. There is very mild induration. EXTREMITIES: No cyanosis, clubbing or edema. ASSESSMENT AND PLAN: A 75-year-old admitted for vulvar lesion. A CT scan has been reviewed and is u nremarkable. The patient has a known history of bullous pemphigoid. The patient has had an occurren ce interval before and is familiar with what it is. On admission, she has been started with antibiot ics and nystatin. Discussed my findings with Dr. Sneed, the attending on-call. RECOMMENDATIONS: Stop antibiotic therapy and treat the patient with steroids and have her follow up with her physicians as an outpatient. Patient has been started on betamethasone 0.1%, which will be used twice daily sparingly and patient can follow up with cylinder die machine operator as an outpatient. Dr. Sneed tells me she has access to dermatology care in the hospital. He, therefore, will place a consult [facility] dermatology to see the patient as well. Thank you very much for dictation. If there is any further need for STITCH WELDER, please do not hesitate to c all. Job ID: [id number]
[2021-04-21 07:27] LABS: Hematocrit (blood only) 39.4 % (37-47); Hemoglobin 12.1 g/dL (12.0-16.0); Mean Corpuscular Hemoglobin 27.7 pg (25-34); Mean Corpuscular Hgb Conc 30.7 g/dL (32-36); Mean Corpuscular Volume 90.2 fL (80-100); Mean Platelet Volume 9.9 fL (7.4-10.4); Platelet Count 234 K/uL (130-400); RDW Coefficient of Variation 13.7 % (11.5-14.5); RDW Standard Deviation 45.2 fL (36.4-46.3); Red Blood Count 4.37 M/uL (4.2-5.4)
[2021-04-21] MEDS: CIPROFLOXACIN / D5W 400 MG/200 ML BAG IV SCH (07:48)
[2021-04-21 07:53] LABS: Calcium 8.6 mg/dl (8.5-10.1); Creatinine Clr Calc Pharmacy 61.5 ml/min; Est GFR (African American) 90.4 ml/min; Potassium 4.1 mmol/L (3.5-5.1)
[2021-04-21] MEDS: CALCIUM 600MG + VIT D 400 IU TAB PO SCH ×2 (07:58→20:11)
[2021-04-21] MEDS: busPIRone 5 MG TAB PO SCH ×3 (07:58→20:12)
[2021-04-21] MEDS: CITALOPRAM 20 MG TAB PO SCH (07:59)
[2021-04-21] MEDS: MYCOPHENOLATE MOFETIL 250 MG CAP PO SCH ×2 (07:59→20:10)
[2021-04-21] MEDS: FUROSEMIDE 20 MG TAB PO SCH (07:59)
[2021-04-21] MEDS: LORATADINE 10 MG TAB PO SCH (07:59)
[2021-04-21] MEDS: PANTOprazole 40 MG TAB PO SCH (07:59)
[2021-04-21] MEDS: CHOLECALCIFEROL 1,000 UNITS 25 MCG TAB PO SCH (08:00)
[2021-04-21] MEDS: ENOXAPARIN INJ 40 MG/0.4 ML SYR SQ SCH (08:00)
[2021-04-21] MEDS: ASCORBIC ACID 500 MG TAB PO SCH (08:00)
[2021-04-21] MEDS: POTASSIUM CHLORIDE CRTAB 20 MEQ TABCR PO SCH (08:00)
[2021-04-21 08:07] LABS: Estimated Average Glucose 105 mg/dl; Hemoglobin A1C 5.3 % (4.5-5.6)
--- NOTE | 2021-04-21 08:33 | Surgery Progress Note ---
Date of Service April 21, 2021 Assessment & Plan (1) Cellulitis of labia: Plan: doing better. pain much improved. nothing to debride surgically.... will s/o. call if any questions Admission and Anticipated Discharge Date Admission Date: April 20, 2021 Subjective pt feeling much better. her perineal discomfort is much improved. Physical Exam Physical Exam: alert. nad vaginal region about the same appearance....erythema. I was able to evaluate her sacrum...no sacral ulcer or skin breakdown present. Results & Data ([facility]) Vital Signs (Past 12 Hours) Vital Signs Temp Pulse Resp BP Pulse Ox 04/21/21 08:06 36.8 C 58 L 20 136/81 96 04/20/21 23:00 36.7 C 71 18 143/82 H 94 PG Care Time/CCT Total # of Minutes Spent Total Time Spent with Patient: Total time spent is greater than 50% in coordination of care (as documented) at patient's floor/unit and/or counseling patient: Coding Level of Care Code 83985 Subseq Hosp Care Lvl 2 Diagnoses Cellulitis of labia N76.2
--- NOTE | 2021-04-21 16:47 | Hospitalist Progress Note ---
Date of Service April 21, 2021 Assessment & Plan (1) Asymptomatic hypertensive urgency: Plan: Elevated on arrival which was likely related to circumstance and discomfort which is now resolved. BP within goal range. (2) Cellulitis of labia: Plan: Appears less consistent with cellulitis today. Abx given but stopped overnight by PAYROLL MACHINE OPERATOR as this appears less like infection to them and more like possible pemphigoid which she has had in the past. Definitive biopsy by dermatology is recommended as outpatient. Patient states that she has a lace mender she can see. Of note, CT scan was negative for abscess or other structural cause for her discomfort. Also, UA was clear of infection. Cont steroid cream recommended. (3) Ulcer of perineum: Plan: Zinc oxide and clotrimazole were prescribed on 04/15 at the [facility] ER for placement in her intertriginous areas and on her external vaginal area that was affected. Per surgery, the clotrimazole cream appears to be working and will continue this. Also will continue zinc oxide for comfort especially after urinating or bowel movements. Of note she has been reportedly using tacrolimus in this area, which is a cream she is used traditionally for bullous pemphigoid. Hold for now. (4) BP (bullous pemphigoid): Plan: Continue CellCept per home regimen for treatment of bullous pemphigoid, holding tacrolimus topical cream at this time. (5) Mild cognitive impairment: Plan: Noted in outpatient record and on exam. Assistance required from case management, will go to facility in the short term while healing from her wounds. (6) Depression: Plan: Continue BuSpar and Celexa per home regimen. (7) DVT prophylaxis: Plan: Lovenox Full code Disposition-to facility when auth approved. Jena [facility]more [facility] and [facility]ticipated Discharge Date Admission Date: April 19, 2021 Subjective 75 yo F presented with pain in her groin reports no further pain ongoing she is doing well with the cream given to her seen by OBGYN overnight with recommendation for high potency steroid cream for one week questionable ability for her to care for herself at home, especially wtih wounds so speaking with CM about short term placement patient is ok with this. Review of Systems Review of Systems: All systems were reviewed and negative except as indicated in HPI above. Physical Exam Physical Exam: CONSTITUTIONAL: WNWD, vitals as above, generally well- appearing, easily ambulates independently EYES: normal conjunctivae, no scleral icterus ENT: external ear and nose normal, MMM NECK: trachea midline RESPIRATORY: clear to auscultation bilaterally, no crackles, rales or wheezes, normal respiratory effort CARDIOVASCULAR: regular rate and rhythm, S1 and 2 heard without murmurs, gallops or rubs, no JVD, no peripheral edema GASTROINTESTINAL: soft, nontender, nondistended, no guarding : external vaginal area evaluated, multiple shallow perineal lesions seen without much surrounding erythema or swelling present today, there is no evidence of sacral ulcer. MUSCULOSKELETAL: strength 5/5 throughout, head is normocephalic and atraumatic SKIN: warm and dry, as above. NEUROLOGIC: CN 2-12 grossly intact, no sensory deficit, normal cognition, normal speech, no tremor PSYCHIATRIC: alert cooperative and answering questions appropriately. Results & Data Results & Data ([facility]) Vital Signs (Past 12 Hours) Vital Signs Temp Pulse Resp BP Pulse Ox 04/21/21 15:41 36.6 C 64 20 121/79 93 04/21/21 11:31 36.6 C 62 20 104/68 92 04/21/21 08:06 36.8 C 58 L 20 136/81 96 Laboratory Results Short CBC 04/21/21 Range/Units 07:13 WBC 6.40 (4.8-10.8) K/uL Hgb 12.1 (12.0-16.0) g/dL Hct 39.4 (37-47) % Plt Count 234 (130-400) K/uL BMP 04/21/21 07:13 Sodium 141 Potassium 4.1 Chloride 107 Carbon Dioxide 30 BUN 18 Creatinine 0.75 Glucose 83 Calcium 8.6 Medications Administered Current Inpatient Medications Acetaminophen (Acetaminophen 325 Mg Tab) 650 mg PO Q4H PRN PRN Reason: Pain or Fever Stop: 05/20/21 01:39 Last Admin: 04/20/21 12:53 Dose: 650 mg Documented by: Amitriptyline HCl (Amitriptyline Hcl 25 Mg Tab) 25 mg PO HS GÓMEZ Stop: 05/20/21 20:59 Last Admin: 04/20/21 20:44 Dose: 25 mg Documented by: Ascorbic Acid (Ascorbic Acid 500 Mg Tab) 500 mg PO DAILY GÓMEZ Stop: 05/21/21 08:59 Last Admin: 04/21/21 08:00 Dose: 500 mg Documented by: Betamethasone Valerate (Betamethasone Yuki 0.1% Cr 15 Gm) 1 appln EXT BID [facility] Stop: 04/28/21 20:59 Buspirone HCl (Buspirone 5 Mg Tab) 5 mg PO TID [facility] Stop: 05/20/21 01:39 Last Admin: 04/21/21 13:31 Dose: 5 mg Documented by: Citalopram Hydrobromide (Citalopram 20 Mg Tab) 20 mg PO DAILY [facility] Stop: 05/20/21 08:59 Last Admin: 04/21/21 07:59 Dose: 20 mg Documented by: Enoxaparin Sodium (Enoxaparin Inj 40 Mg/0.4 Ml Syr) 40 mg SQ QAM [facility] Stop: 05/20/21 08:59 Last Admin: 04/21/21 08:00 Dose: 40 mg Documented by: Furosemide (Furosemide 20 Mg Tab) 60 mg PO DAILY [facility] Stop: 05/20/21 14:26 Last Admin: 04/21/21 07:59 Dose: 60 mg Documented by: Promethazine HCl 12.5 mg/ (Sodium Chloride) 50.5 mls @ 202 mls/hr IV Q6H PRN PRN Reason: Nausea And Vomiting Stop: 05/20/21 01:39 Clindamycin Phosphate 600 mg/ (Dextrose) 54 mls @ 100 mls/hr IV Q8H [facility] Stop: 04/27/21 12:29 Last Infusion: 04/20/21 21:39 Dose: Infused Documented by: Ciprofloxacin (Cipro / D5w) 400 mg in 200 mls @ 100 mls/hr IV Q12H [facility]; Protocol Stop: 04/27/21 12:59 Last Admin: 04/21/21 07:48 Dose: Not Given Documented by: Lisinopril (Lisinopril 2.5 Mg Tab) 2.5 mg PO HS [facility] Stop: 05/20/21 20:59 Last Admin: 04/20/21 20:42 Dose: 2.5 mg Documented by: Loratadine (Loratadine 10 Mg Tab) 10 mg PO DAILY [facility] Stop: 05/20/21 08:59 Last Admin: 04/21/21 07:59 Dose: 10 mg Documented by: Miscellaneous (Tacrolimus Oint~Order Awaiting Action) 1 ea N/A QS GÓMEZ Stop: 05/20/21 07:59 Last Admin: 04/20/21 08:41 Dose: Not Given Documented by: Multivitamins/Minerals (Calcium 600mg + Vit D 400 Iu Tab) 1 tab PO BID GÓMEZ Stop: 05/20/21 20:59 Last Admin: 04/21/21 07:58 Dose: 1 tab Documented by: Mycophenolate Mofetil (Mycophenolate Mofetil 250 Mg Cap) 500 mg PO BID GÓMEZ Stop: 05/20/21 08:59 Last Admin: 04/21/21 07:59 Dose: 500 mg Documented by: Pantoprazole Sodium (Pantoprazole 40 Mg Tab) 40 mg PO DAILY GÓMEZ Stop: 05/20/21 08:59 Last Admin: 04/21/21 07:59 Dose: 40 mg Documented by: Petrolatum (Butt Paste (Zinc Oxide 16%) 171 Appln/57 Gm Jar) 1 appln EXT UD PRN PRN Reason: Diaper Rash Stop: 05/20/21 14:31 Potassium Chloride (Potassium Chloride Crtab 20 Meq Tabcr) 20 meq PO DAILY GÓMEZ Stop: 05/20/21 14:29 Last Admin: 04/21/21 08:00 Dose: 20 meq Documented by: Tramadol HCl (Tramadol Hcl 50 Mg Tablet) 25 - 50 mg PO Q4H PRN PRN Reason: Pain Stop: 05/20/21 01:39 Vitamin D (Cholecalciferol 1,000 Units 25 Mcg Tab) 1,000 units PO DAILY GÓMEZ Stop: 05/21/21 08:59 Last Admin: 04/21/21 08:00 Dose: 1,000 units Documented by:
[2021-04-21] MEDS: BETAMETHASONE VAL 0.1% CR 15 GM EXT SCH (20:11)
[2021-04-21] MEDS: AMITRIPTYLINE HCL 25 MG TAB PO SCH (20:11)
[2021-04-21] MEDS: lisinopril 2.5 MG TAB PO SCH (20:11)
[2021-04-22] MEDS: ENOXAPARIN INJ 40 MG/0.4 ML SYR SQ SCH (08:21)
[2021-04-22] MEDS: PANTOprazole 40 MG TAB PO SCH (08:21)
[2021-04-22] MEDS: busPIRone 5 MG TAB PO SCH ×2 (08:21→13:10)
[2021-04-22] MEDS: LORATADINE 10 MG TAB PO SCH (08:22)
[2021-04-22] MEDS: CITALOPRAM 20 MG TAB PO SCH (08:22)
[2021-04-22] MEDS: ASCORBIC ACID 500 MG TAB PO SCH (08:22)
[2021-04-22] MEDS: CHOLECALCIFEROL 1,000 UNITS 25 MCG TAB PO SCH (08:22)
[2021-04-22] MEDS: POTASSIUM CHLORIDE CRTAB 20 MEQ TABCR PO SCH (08:22)
[2021-04-22] MEDS: MYCOPHENOLATE MOFETIL 250 MG CAP PO SCH (08:22)
[2021-04-22] MEDS: CALCIUM 600MG + VIT D 400 IU TAB PO SCH (08:22)
[2021-04-22] MEDS: BETAMETHASONE VAL 0.1% CR 15 GM EXT SCH (08:23)
[2021-04-22] MEDS: FUROSEMIDE 20 MG TAB PO SCH (09:44)
--- NOTE | 2021-04-22 13:16 | Discharge Summary ---
Date of Service April 22, 2021 Admission HPI Per Admitting Provider History obtained from patient, patient's friend, and records. Medical history significant for asthma/COPD, bullous pemphigoid on CellCept and topical tacrolimus, mild cognitive impairment as per records, anxiety/mood disorder. Patient has had bullous pemphigoid involving her face and her genital area since last year. CellCept and topical tacrolimus prescribed by [facility] public safety director. Patient brought to [facility] ER 4 days ago for a possible yeast infection on patient's groin and under her breasts and failure to thrive as per documentation. Patient has had rash for about 2 weeks. Scaly red erythematous plaques noted on patient's groin and under the breasts. ER provider prescribed topical clotrimazole for possible fungal rash. Arrangements for admission at the [facility] for patient once bed available. Patient subsequently discharged home with caregiver help for a few hours a day. No improvement in perineal wound and concerns for patient's well-being at home as per friend. Patient denies chest pain, S OB, fever, chills. Patient brought to the ER for evaluation. Given ceftriaxone at the ER. Medical History as above Surgical History : Breast biopsy, cholecystostomy Family History : Heart disease Personal/Social history : Past tobacco abuse, no EtOH intake, retired from factory work, lives by herself Admission Exam Per Admitting Provider GENERAL: Comfortable, pleasant, obese, no respiratory distress SKIN: Normal color, warm HEENT: Bespectacled, [place] palpebral conjunctivae, no ptosis, moist buccal mucosa NECK : Supple, short neck, no tenderness CHEST : CTA, no tenderness HEART : RRR, no obvious murmurs ABDOMEN: Some distention, nontender : Excoriation over perineal area with surrounding erythema, minimal tenderness EXTREMITIES : Minimal LE swelling, no LE tenderness, no other conspicuous deformities noted NEUROLOGIC : Coherent, no facial asymmetry, no other gross focality Principal Diagnosis asymptomatic hypertensive urgency, situational perineal ulcerations intertriginous candidiasis h/o bullous pemphigoid mild cognitive inhibition Discharge Exam CONSTITUTIONAL: WNWD, vitals as above, generally well-appearing, easily ambulates independently EYES: normal conjunctivae, no scleral icterus ENT: external ear and nose normal, MMM NECK: trachea midline RESPIRATORY: clear to auscultation bilaterally, no crackles, rales or wheezes, normal respiratory effort CARDIOVASCULAR: regular rate and rhythm, S1 and 2 heard without murmurs, gallops or rubs, no JVD, no peripheral edema GASTROINTESTINAL: soft, nontender, nondistended, no guarding : external vaginal area evaluated, multiple shallow perineal lesions seen without much surrounding erythema or swelling present today, there is no evidence of sacral ulcer. MUSCULOSKELETAL: strength 5/5 throughout, head is normocephalic and atraumatic SKIN: warm and dry, as above. NEUROLOGIC: CN 2-12 grossly intact, no sensory deficit, normal cognition, normal speech, no tremor PSYCHIATRIC: alert cooperative and answering questions appropriately. Discharge Data Allergies Allergy/AdvReac Type Severity Reaction Status Date / Time fluconazole Allergy Rash Verified 04/19/21 19:20 Penicillins Allergy Unknown Verified 04/19/21 19:20 adhesive tape AdvReac skin Verified 04/19/21 19:19 irritation Consultations 04/19/21 20:52 ED Decision to Admit Stat 04/20/21 01:40 Consult Wound Care Provider Routine 04/20/21 12:20 Consult Gynecology Routine Ordered Studies 04/19/21 17:28 CT pelvis w/IV con only Urgent Hospital Course (1) Asymptomatic hypertensive urgency: (2) Ulcer of perineum: (3) BP (bullous pemphigoid): (4) Intertriginous candidiasis: (5) Mild cognitive impairment: (6) Depression: 75-year-old female presented with worsening pain from perineal wounds with inability to care for herself partly due to a history of mild cognitive inhibiti on. She had recently been seen in the [facility] and had placement set up for [facility] but did not proceed there. That was 2 days prior to arrival. She was admitted to the hospitalist service and treated for high blood pressure with lisinopril. She was given doxycycline for potential superinfection of her wound. General surgery was consulted and recommended conservative management. [employer] was consulted and recommended to stop antibiotic therapy and treat the patient with steroids, specifically betamethasone 0.1% to be used twice daily with close follow-up with her public safety director as outpatient. Based on the history of bullous pemphigoid these vulvar lesions may be consistent with that. A biopsy would be recommended as outpatient with her public safety director. The patient verbalized understanding with agreement to follow-up. Overall, regarding her inability to care for herself, she agreed to placement in a facility temporarily while her wounds are healing. She stayed an extra day for authorization for this and was discharged in stable condition. She remained hemodynamically stable and afebrile throughout her stay. Her initial elevated blood pressure was likely secondary to circumstance and improved. She did not require blood pressure medication on discharge. Close primary care follow-up is recommended. Also, of note, she did not have a sacral ulcer by my assessment. Total Time Total Time Spent Total Time Spent (In Minutes): 45 Discharge Plan Discharge Items Patient Disposition: Transfer Correction Fac Reason For Visit: HTN URGENCY, PERINEAL WOUNDS FAILED OUTPX Discharge Diagnosis: perineal ulcerations intertriginous candidiasis h/o bullous pemphigoid mild cognitive inhibition Condition on Discharge: Good Activity: Resume your previous activity Non-emergency contact: Primary Care Provider Call non-emergency contact if: you have any medication questions, your symptoms worsen, your pain is not controlled, your pain is worsening, your pain is unusual for you, your pain is concerning for you, you have a fever, your wound has increased redness, your wound has increased drainage and your wound pain has increased Follow-up/Referrals: PCP,NO [Primary Care Provider] - Diet: Regular Addtl Attending Provider Instructions: Please continue to apply steroid cream to external perineal ulcerations as directed, twice daily for the next 6 days and then stop. Please continue to use the Nystatin cream in your groin area for any reddening. Please use the zinc oxide as a barrier cream after using the bathroom or cleaning as needed for comfort. It is recommended that you follow-up with your primary care provider within one week of discharge from the hospital. This will be important to re-evaluate your wounds and skin to ensure you are healing appropriately. An outpatient follow- up with a Production Line Manager is also recommended. PLEASE DO NOT USE THE STEROID CREAM FOR LONGER THAN ONE WEEK. It was a pleasure taking care of you! Please call if you have any questions or problems. You can reach a [facility] hospitalist on duty at [facility] 24 hours a day by calling [phone]. Take care of yourself. Jena Gilmore, DO [facility] Pending Studies at Discharge: No Stand-Alone Forms: My [facility] Skilled Items Patient informed of condition?: Yes DNR: No Discharge Level of Care: Skilled Communicable Disease: No Discharge Prognosis: Stable Lines: None Urinary Catheter: No Medications and DC Order Prescriptions: New betamethasone valerate 0.1 % Cream 1 applic EXT BID Qty: 45 RF: 0 Continued furosemide 40 mg tablet 60 mg PO DAILY RF: 0 buspirone 5 mg tablet 5 mg PO TID RF: 0 albuterol sulfate 2.5 mg /3 mL (0.083 %) solution for nebulization 2.5 mg continuous nebulization Q4 PRN (Reason: Wheezing) RF: 0 meloxicam [Mobic] 15 mg tablet 15 mg PO DAILY RF: 0 mycophenolate mofetil 500 mg tablet 500 mg PO BID RF: 0 citalopram [Celexa] 20 mg Tablet 20 mg PO DAILY RF: 0 potassium chloride 20 mEq tablet,ER particles/crystals 20 meq PO DAILY RF: 0 amitriptyline 25 mg tablet 25 mg PO HS RF: 0 tacrolimus 0.1 % ointment 1 applic TOPICAL UD PRN (Reason: ..) RF: 0 ferrous sulfate [iron] 325 mg (65 mg iron) Tablet 325 mg PO DAILY RF: 0 nystatin 100,000 unit/gram Cream 1 applic TOPICAL BID RF: 0 omeprazole 20 mg capsule,delayed release(DR/EC) 20 mg PO DAILY RF: 0 loratadine 10 mg tablet 10 mg PO DAILY RF: 0 methylcellulose (with sugar) Powder In Packet 1 ea PO DAILY RF: 0 calcium carbonate-vitamin D3 [Calcium 500 With D] 500 mg(1,250mg) -400 unit T ablet 1 tab PO DAILY RF: 0 zinc oxide [Diaper Rash] 40 % ointment 1 applic TOPICAL UD PRN (Reason: Diaper Rash) RF: 0 Prolia 60 mg/mL Syringe 60 mg SUBCUT UD RF: 0 ascorbic acid (vitamin C) [Vitamin C] 500 mg Tablet 500 mg PO DAILY RF: 0 cholestyramine (with sugar) 4 gram powder in packet 8 ea PO BID RF: 0 cholecalciferol (vitamin D3) [Vitamin D3] 25 mcg (1,000 unit) Tablet 25 mcg PO DAILY RF: 0 Discontinued clotrimazole-betamethasone 1-0.05 % cream 1 applic TOPICAL UD RF: 0 Discharge Orders: Discharge Order (Routine); Ordered 04/22/21 Ordered By: Jena Gilmore Admission Data Admit Date/Time: 04/19/21 23:00 Attending Provider: Jena Gilmore Admit Provider: Usman Sneed Primary Care Provider: PCP,ANDREE Other Providers: Usman Sneed ; Olga Nelson ; Frankie Giron ; Rosetta Black ; Darnell Camilo ; Arthur Sharma Other Interventions: Discharge Summary Assessment (RN) Last Done: 04/22/21 13:11
== END 2021-04-22 13:50 | DRG 596 ==
LOC: ED 16:13 → 2N 04-20 00:09
DX: N76.2 Acute vulvitis; B37.2 Candidiasis of skin and nail; Z87.891 Personal history of nicotine dependence; G31.84 Mild cognitive impairment of uncertain or unknown etiology; L12.0 Bullous pemphigoid; J44.9 Chronic obstructive pulmonary disease, unspecified; L98.499 Non-pressure chronic ulcer of skin of other sites with unspecified severity; L98.429 Non-pressure chronic ulcer of back with unspecified severity; I16.0 Hypertensive urgency; I10 Essential (primary) hypertension; Z88.8 Allergy status to other drugs, medicaments and biological substances; R62.7 Adult failure to thrive; Z88.0 Allergy status to penicillin; F32.9 Major depressive disorder, single episode, unspecified

== ENCOUNTER 2023-03-05 14:24 | Inpatient (IN) ==
[2023-03-05] MEDS ORDERED: CEFEPIME 2,000 MG/20 ML VIAL IV STA (16:34)
[2023-03-05] MEDS ORDERED: SODIUM CHLORIDE 0.9% 1000ML 1,000 ML IV SCH (16:45)
--- NOTE | 2023-03-05 16:56 | XRay Report ---
XR chest 1V portable CLINICAL HISTORY: Sepsis TECHNIQUE: Single frontal radiograph of the chest was obtained. Comparison: Comparison is made to chest radiograph 10/24/2022 FINDINGS: Exam is limited by underpenetration. The cardiomediastinal silhouette is normal. The lungs are clear. No evidence of pleural effusion or pneumothorax. IMPRESSION: No acute abnormalities and in particular no radiographic evidence of pneumonia. ACT 112: Negative or not required by law. Electronically signed by: Roman Metzger M.D. 03/05/2023 4:55 PM
--- NOTE | 2023-03-05 17:19 | Emergency Department Note ---
Impression & Plan Bacterial vaginal infection, Vaginal pain, Failure of outpatient treatment ED Provider Note NAME: LUCAS ALBERTS AGE: 77 SEX: F : 1945 ARRIVES VIA: Walk-In INFORMANT: [Patient][friend] ED PROVIDER(S): [Tyler Oro MD] CHIEF COMPLAINT: Vaginal pain HISTORY OF PRESENT ILLNESS: The patient is a 77-year-old female who presents with vaginal discomfort. The patient was diagnosed with a vaginal lesion secondary to infection. The biopsy through OB showed E. coli. She is on Bactrim and has been on this medication for 4 days. Despite Bactrim, Vaseline, barrier cream and nystatin, the lesion is worsening in size and she now has some spreading bumps on the skin of the groin. No fever. No vomiting. The care workers at the home felt that things were worsening and that the patient should be seen in the ED. The patient does have intellectual disability, the family/friend with her gives most of the history. PMHx/PSHx: See Below SOCIAL HISTORY: See Below. PHYSICAL EXAM: GENERAL: Patient is in no acute distress. HEENT: No acute trauma, normocephalic atraumatic, mucous membranes moist, no nasal congestion. NECK: No stridor, no adenopathy, no meningismus, trachea is midline. LUNGS: Clear to auscultation bilaterally, no wheeze, no rhonchi, breath sounds equal. HEART: Without murmurs gallops or rubs, regular rate and rhythm. ABDOMEN: Soft, nontender, bowel sounds positive, no peritonitis. EXTREMITIES: No cyanosis or edema, full range of motion of all the joints without pain or difficulty, no signs for acute trauma. NEUROLOGIC: Awake and alert, no acute motor or sensory deficits, no focal weakness. SKIN: No jaundice, no diaphoresis. Vaginal: The patient does have an ulcer-like appearing lesion to the left side of the posterior vagina. There is surrounding erythema. She has some erythematous papules on the groin and what looks to be a circular tinea lesion on the left groin crease. There is some white discharge seen in the vaginal area. DIFFERENTIAL DIAGNOSIS: Abscess, failed outpatient management, malignancy, UTI, bacteremia or sepsis, among others. EMERGENCY DEPARTMENT COURSE/PROCEDURES: Prior/Outside records reviewed: None. ECG per my interpretation: Indication was possible sepsis. The ECG shows a normal sinus rhythm with a rate of 87. There is no ST elevation, no PVCs. The QTc is 459. Continuous Cardiac Monitoring per my interpretation: An order was placed for continuous cardiac monitoring. The monitor shows a rate of 90 with normal sinus rhythm. MEDICAL DECISION MAKING: There is no leukocytosis or concerning anemia. There is a normal platelet count. No renal failure or significant electrolyte abnormality. Lactic acid level is not elevated making severe sepsis less likely. There is no concerning liver enzyme elevation. ECG shows a normal sinus rhythm, no ischemia or dysrhythmia. Cardiac enzyme testing x1 is not consistent with acute cardiac injury. Urinalysis shows what appears to be contamination. COVID test returned negative. Chest x-ray per my review did not show mediastinal widening, pn eumonia or pneumothorax. There was no free air. Abdominal and pelvis CT did not show any evidence for bowel obstruction or intra-abdominal/pelvic abscess. On exam, the patient did have a lesion to the left side of the vaginal wall with some discharge. As per our pharmacist, the patient's culture/biopsy from this lesion grew out E. coli as well as Enterococcus. She is on Bactrim and Enterococcus is not covered by Bactrim. The patient received IV vancomycin, she was given IV cefepime. She received IV saline. I did speak with [employer] TECHNICIAN, Dr. Sharma. The patient can be seen by them in consult. Given the worsening of her situation, hospitalization was felt warranted. Case management has been involved as there are a lot of social issues felt concerning. Apparently, the amount of care being provided at home is not adequate with her intellectual disability and her current infection. I did speak with the caregiver, I did speak with case management, the on-call hospitalist was consulted. DISPOSITION: Patient's presentation and findings warrant a hospital stay. Past Med/Surg History Medical History Asthma, moderate persistent Asymptomatic hypertensive urgency BP (bullous pemphigoid) Cellulitis of labia COPD (chronic obstructive pulmonary disease) Depression DVT prophylaxis CARLOS (generalized anxiety disorder) Generalized osteoarthritis GERD (gastroesophageal reflux disease) Leukocytosis Mild cognitive impairment Sacral ulcer Ulcer of perineum Social History Smoking Status: Never smoker Hx Alcohol Use: No Hx Substance Use: No Preferred Language: Bengali Communication Ability: Effective marital status: / Current Living Situation: Alone How many Children do You have: 0 Feels Safe at Home: Yes Assistive Devices: Walker Allergies Allergies Allergy/AdvReac Type Severity Reaction Status Date / Time fluconazole Allergy Intermediate Rash Verified 03/05/23 19:11 adhesive tape Allergy Mild skin Verified 03/05/23 19:11 irritation Penicillins Allergy Unknown Unknown Verified 03/05/23 19:11 Home Meds Home Medications Medication Instructions Recorded Confirmed amitriptyline 25 mg tablet 25 mg PO HS 04/19/21 03/05/23 ascorbic acid (vitamin C) 500 mg 500 mg PO DAILY 04/19/21 03/05/23 tablet (Vitamin C) buspirone 5 mg tablet 5 mg PO TID 04/19/21 03/05/23 calcium carbonate 500 mg-vitamin 1 tab PO DAILY 04/19/21 03/05/23 D3 10 mcg (400 unit) tablet (Calcium 500 With D) cholecalciferol (vitamin D3) 25 25 mcg PO DAILY 04/19/21 03/05/23 mcg (1,000 unit) tablet (Vitamin D3) citalopram 20 mg tablet (Celexa) 20 mg PO QAM 04/19/21 03/05/23 denosumab 60 mg/mL subcutaneous 60 mg subcut DIRECTED 04/19/21 03/05/23 syringe (Prolia) ferrous sulfate 325 mg (65 mg 325 mg PO DAILY 04/19/21 03/05/23 iron) tablet (iron) furosemide 40 mg tablet 60 mg PO DAILY 04/19/21 03/05/23 loratadine 10 mg tablet 10 mg PO DAILY 04/19/21 03/05/23 mycophenolate mofetil 500 mg tablet 500 mg PO AMHS 04/19/21 03/05/23 omeprazole 20 mg capsule,delayed 20 mg PO DAILY 04/19/21 03/05/23 release potassium chloride 20 mEq 20 meq PO DAILY 04/19/21 03/05/23 tablet,extended release(part/cryst) cholestyramine (with sugar) 4 gram 1 ea PO QAM 10/24/22 03/05/23 powder for susp in a packet meloxicam 15 mg tablet 15 mg PO DAILY 10/24/22 03/05/23 prednisone 5 mg tablet 5 mg PO DAILY 10/24/22 03/05/23 sulfamethoxazole 800 1 tab PO BID 03/05/23 03/05/23 mg-trimethoprim 160 mg tablet Previous Rx's Medication Instructions Recorded ketoconazole 2 % topical cream 1 applic topical BID #60 grams 10/24/22 Results & Data (ED) Vital Signs Vital Signs - 24 hr 03/05/23 14:30 03/05/23 16:49 03/05/23 17:09 Temperature 36.3 C L 36.9 C Temperature Source Temporal Artery Scan Oral Pulse Rate 93 H 90 Pulse Rate [Apical] 90 Pulse Rate from SpO2 Sensor Pulse Rhythm Respiratory Rate 16 15 Respiratory Effort / Characteristics Non-Labored Respiratory Depth Normal Blood Pressure 147/81 H Blood Pressure [Left Arm] 171/86 H Blood Pressure Mean 103 Blood Pressure Mean [Left Arm] 114 Pulse Oximetry 95 95 Oxygen Delivery Method Room Air Room Air Sepsis Recent Fever Within 48 Hours No Sepsis New/Unexplained Change in Mental Status No Sepsis Action Taken by Nursing No Action Required 03/05/23 16:34 03/05/23 17:04 03/05/23 17:10 Temperature Temperature Source Pulse Rate 84 91 H 88 Pulse Rate [Apical] Pulse Rate from SpO2 Sensor 88 88 Pulse Rhythm Regular Respiratory Rate 18 21 21 Respiratory Effort / Characteristics Respiratory Depth Blood Pressure Blood Pressure [Left Arm] Blood Pressure Mean Blood Pressure Mean [Left Arm] Pulse Oximetry 95 95 95 Oxygen Delivery Method Room Air Sepsis Recent Fever Within 48 Hours Sepsis New/Unexplained Change in Mental Status Sepsis Action Taken by Nursing 03/05/23 17:20 03/05/23 17:30 03/05/23 17:40 Temperature Temperature Source Pulse Rate 85 85 84 Pulse Rate [Apical] Pulse Rate from SpO2 Sensor 85 84 86 Pulse Rhythm Respiratory Rate 19 24 23 Respiratory Effort / Characteristics Respiratory Depth Blood Pressure Blood Pressure [Left Arm] Blood Pressure Mean Blood Pressure Mean [Left Arm] Pulse Oximetry 95 95 97 Oxygen Delivery Method Sepsis Recent Fever Within 48 Hours Sepsis New/Unexplained Change in Mental Status Sepsis Action Taken by Nursing 03/05/23 17:50 03/05/23 18:00 03/05/23 18:10 Temperature Temperature Source Pulse Rate 84 84 85 Pulse Rate [Apical] Pulse Rate from SpO2 Sensor 83 86 86 Pulse Rhythm Respiratory Rate 19 18 27 H Respiratory Effort / Characteristics Respiratory Depth Blood Pressure Blood Pressure [Left Arm] Blood Pressure Mean Blood Pressure Mean [Left Arm] Pulse Oximetry 97 95 97 Oxygen Delivery Method Sepsis Recent Fever Within 48 Hours Sepsis New/Unexplained Change in Mental Status Sepsis Action Taken by Nursing 03/05/23 19:05 03/05/23 19:31 03/05/23 20:01 Temperature Temperature Source Pulse Rate 85 87 84 Pulse Rate [Apical] Pulse Rate from SpO2 Sensor 86 87 83 Pulse Rhythm Respiratory Rate 23 21 16 Respiratory Effort / Characteristics Respiratory Depth Blood Pressure 157/70 H 147/94 H 136/52 L Blood Pressure [Left Arm] Blood Pressure Mean 99 111 80 Blood Pressure Mean [Left Arm] Pulse Oximetry 97 97 96 Oxygen Delivery Method Room Air Room Air Room Air Sepsis Recent Fever Within 48 Hours Sepsis New/Unexplained Change in Mental Status Sepsis Action Taken by Nursing 03/05/23 20:18 03/05/23 20:31 03/05/23 21:17 Temperature Temperature Source Pulse Rate 94 H 90 86 Pulse Rate [Apical] Pulse Rate from SpO2 Sensor 95 H 90 87 Pulse Rhythm Respiratory Rate 20 22 21 Respiratory Effort / Characteristics Respiratory Depth Blood Pressure 168/65 H 158/53 H 91/52 L Blood Pressure [Left Arm] Blood Pressure Mean 99 88 65 Blood Pressure Mean [Left Arm] Pulse Oximetry 99 94 95 Oxygen Delivery Method Room Air Room Air Room Air Sepsis Recent Fever Within 48 Hours Sepsis New/Unexplained Change in Mental Status Sepsis Action Taken by Nursing 03/05/23 21:32 03/05/23 22:01 Temperature Temperature Source Pulse Rate 82 80 Pulse Rate [Apical] Pulse Rate from SpO2 Sensor 82 80 Pulse Rhythm Respiratory Rate 21 13 Respiratory Effort / Characteristics Respiratory Depth Blood Pressure 122/33 L 123/35 L Blood Pressure [Left Arm] Blood Pressure Mean 62 64 Blood Pressure Mean [Left Arm] Pulse Oximetry 93 92 Oxygen Delivery Method Room Air Room Air Sepsis Recent Fever Within 48 Hours Sepsis New/Unexplained Change in Mental Status Sepsis Action Taken by Care Home Medications Current Medication List: was personally reviewed by me Laboratory Data Attestation: I reviewed the patient's lab results. 03/05/23 16:50 03/05/23 16:50 Lab Results 03/05/23 03/05/23 03/05/23 Range/Units 16:50 16:50 16:50 WBC 7.48 (4.8-10.8) K/ul RBC 4.38 (4.20-5.40) M/uL Hgb 12.1 (12.0-16.0) g/dl Hct 38.2 (37.0-47.0) % MCV 87.2 (80.0-100.0) fL MCH 27.6 (25.0-34.0) pg MCHC 31.7 L (32.0-36.0) g/dL RDW Std Deviation 42.4 (36.4-46.3) fL RDW Coeff of Yaritza 13.3 (11.5-14.5) % Plt Count 257 (130-400) K/uL MPV 10.7 (9.4-12.4) fL Immature Gran % (Auto) 0.7 % Neut % (Auto) 83.0 % Lymph % (Auto) 9.5 % [place] % (Auto) 6.6 % Eos % (Auto) 0.1 % Baso % (Auto) 0.1 % Neut # (Auto) 6.21 (1.40-6.50) K/uL Lymph # (Auto) 0.71 L (1.2-3.4) K/uL [place] # (Auto) 0.49 (0.11-0.59) K/uL Eos # (Auto) 0.01 (0-0.50) K/uL Baso # (Auto) 0.01 (0-0.2) K/uL Immature Gran # (Auto) 0.05 (0.01-0.20) K/uL Sodium 136 (136-145) mmol/L Potassium 4.4 (3.5-5.1) mmol/L Chloride 103 (98-107) mmol/L Carbon Dioxide 25 (21-32) mmol/L Anion Gap 8 (3-11) BUN 12 (6-23) mg/dl Creatinine 0.95 (0.6-1.2) mg/dl Est Cr Clr Drug Dosing Not Reportable Est GFR ( Amer) 67.0 ml/min Est GFR (Non-Af Amer) 57.8 ml/min BUN/Creatinine Ratio 12.6 (10-20) Glucose 113 H (70-99(Fasting)) mg/dl Lactate 1.3 (0.4-2.0) mmol/L Calcium 9.7 (8.6-10.3) mg/dl Magnesium 1.8 (1.7-2.4) mg/dl Total Bilirubin 0.3 (0.2-1.0) mg/dl Direct Bilirubin 0.0 (0-0.2) mg/dl AST 17 (13-39) U/L ALT 9 (7-52) U/L Alkaline Phosphatase 50 (34-104) U/L Troponin I High Sens 10.1 (0-14) pg/ml Total Protein 6.9 (6.0-8.3) gm/dl Albumin 4.0 (3.4-5.0) gm/dl Procalcitonin (0-0.5) ng/ml Urine Color Urine Appearance (Clear) Urine pH (4.5-7.5) Ur Specific [place] (1.000-1.030) Urine Protein (Negative) Urine Glucose (UA) (Negative) Urine Ketones (Negative) Urine Blood (Negative) Urine Nitrite (Negative) Urine Bilirubin (Negative) Urine Urobilinogen (Negative) Ur Leukocyte Esterase (Negative) Urine RBC (0-4) /hpf Urine WBC (0-5) /hpf Ur Epithelial Cells (0-5) /lpf Urine Bacteria (Negative) SARS-CoV-2, RNA, NAAT (NEGATIVE) 03/05/23 03/05/23 03/05/23 Range/Units 16:50 18:34 Unknown WBC (4.8-10.8) K/ul RBC (4.20-5.40) M/uL Hgb (12.0-16.0) g/dl Hct (37.0-47.0) % MCV (80.0-100.0) fL MCH (25.0-34.0) pg MCHC (32.0-36.0) g/dL RDW Std Deviation (36.4-46.3) fL RDW Coeff of Yaritza (11.5-14.5) % Plt Count (130-400) K/uL MPV (9.4-12.4) fL Immature Gran % (Auto) % Neut % (Auto) % Lymph % (Auto) % [place] % (Auto) % Eos % (Auto) % Baso % (Auto) % Neut # (Auto) (1.40-6.50) K/uL Lymph # (Auto) (1.2-3.4) K/uL [place] # (Auto) (0.11-0.59) K/uL Eos # (Auto) (0-0.50) K/uL Baso # (Auto) (0-0.2) K/uL Immature Gran # (Auto) (0.01-0.20) K/uL Sodium (136-145) mmol/L Potassium (3.5-5.1) mmol/L Chloride (98-107) mmol/L Carbon Dioxide (21-32) mmol/L Anion Gap (3-11) BUN (6-23) mg/dl Creatinine (0.6-1.2) mg/dl Est Cr Clr Drug Dosing Est GFR ( Amer) ml/min Est GFR (Non-Af Amer) ml/min BUN/Creatinine Ratio (10-20) Glucose (70-99(Fasting)) mg/dl Lactate (0.4-2.0) mmol/L Calcium (8.6-10.3) mg/dl Magnesium (1.7-2.4) mg/dl Total Bilirubin (0.2-1.0) mg/dl Direct Bilirubin (0-0.2) mg/dl AST (13-39) U/L ALT (7-52) U/L Alkaline Phosphatase (34-104) U/L Troponin I High Sens (0-14) pg/ml Total Protein (6.0-8.3) gm/dl Albumin (3.4-5.0) gm/dl Procalcitonin 0.05 (0-0.5) ng/ml Urine Color Yellow Urine Appearance Turbid A (Clear) Urine pH 5.5 (4.5-7.5) Ur Specific [place] 1.015 (1.000-1.030) Urine Protein 2+ H (Negative) Urine Glucose (UA) Negative (Negative) Urine Ketones Negative (Negative) Urine Blood 2+ H (Negative) Urine Nitrite Negative (Negative) Urine Bilirubin Negative (Negative) Urine Urobilinogen Negative (Negative) Ur Leukocyte Esterase 3+ H (Negative) Urine RBC 10-30 H (0-4) /hpf Urine WBC >30 H (0-5) /hpf Ur Epithelial Cells >30 H (0-5) /lpf Urine Bacteria 3+ H (Negative) SARS-CoV-2, RNA, NAAT NEGATIVE (NEGATIVE) Administered Medications Discontinued Medications Cefepime HCl (Maxipime) 2,000 mg in 20 mls @ 5 mls/min IV NOW STA; Protocol Stop: 03/05/23 16:37 Last Admin: 03/05/23 16:49 Dose: 5 mls/min Documented By: ACC Sodium Chloride (Nss 1000ml) 1,000 mls @ 999 mls/hr IV .Q1H1M [id number] Stop: 03/05/23 17:45 Last Infusion: 03/05/23 19:15 Dose: 0 mls/hr Documented By: Admin: 03/05/23 16:49 Dose: 999 mls/hr Documented By: ACC Vancomycin HCl 1,750 mg/ (Sodium Chloride) 535 mls @ 200 mls/hr IV NOW ONE Stop: 03/05/23 20:25 Last Infusion: 03/05/23 21:22 Dose: 0 mls/hr Documented By: Admin: 03/05/23 18:29 Dose: 200 mls/hr Documented By: ACC Ioversol (Optiray 320 100ml) 93 ml IV ONCE ONE Stop: 03/05/23 18:24 Last Admin: 03/05/23 18:23 Dose: 93 ml Documented By: LULY Miscellaneous (Patient's Height &/Or Weight Needed) 1 each N/A NOW STA Stop: 03/05/23 17:34 Last Admin: 03/05/23 18:40 Dose: Not Given Documented By: [facility] [place] Radiologist's Impression: Abdomen/Pelvis CT 03/05/23 16:34 CT abd pelvis IV con only CLINICAL HISTORY: vag lesion, poss abscess or mass, pain TECHNIQUE: Helical axial images of the abdomen and pelvis were obtained and displayed. Automated dose lowering techniques and/or adjustment according to patient size were utilized for this exam. This exam was performed with intravenous contrast. CT DOSE: 1429.15 mGy.cm COMPARISON: Comparison is made to CT pelvis 04/11/2021 FINDINGS: Lower chest: Bibasilar atelectasis versus scarring is seen. Liver: Hepatic calcifications are seen. Gallbladder and biliary tree: Patient is status post cholecystectomy. No intra- or extrahepatic biliary ductal dilation. Pancreas: Fatty replacement of the pancreas is seen. Spleen: Splenule is incidentally noted. Adrenals: Unremarkable. Kidneys and ureters: Subcentimeter hypodensities are too small to characterize. Bladder: Unremarkable. Reproductive organs: Patient is status post hysterectomy. No vaginal abscess is seen. Bowel: Diverticulosis is seen without evidence of diverticulitis. A hiatal hernia is seen. Lymph nodes Retroperitoneal: Unremarkable. Pelvic: Unremarkable. Mesenteric: Unremarkable. Peritoneum: Normal. Vessels: Atherosclerotic calcifications are seen. Abdominal wall: A fat-containing umbilical hernia is seen. There is a fat- containing right inguinal hernia. Bones: There is an age-indeterminate fracture of the right lateral eighth rib, favored to be chronic. Degenerative changes are seen in the spine. IMPRESSION: 1. No acute abnormalities are seen below the diaphragm, in particular no vaginal abscess seen. 2. Age-indeterminate, likely chronic right eighth rib fracture. ACT 112: Negative or not required by law. Electronically signed by: Roman Metzger M.D. 03/05/2023 7:08 PM Chest X-Ray 03/05/23 16:34 XR chest 1V portable CLINICAL HISTORY: Sepsis TECHNIQUE: Single frontal radiograph of the chest was obtained. Comparison: Comparison is made to chest radiograph 10/24/2022 FINDINGS: Exam is limited by underpenetration. The cardiomediastinal silhouette is normal. The lungs are clear. No evidence of pleural effusion or pneumothorax. IMPRESSION: No acute abnormalities and in particular no radiographic evidence of pneumonia. ACT 112: Negative or not required by law. Electronically signed by: Roman Metzger M.D. 03/05/2023 4:55 PM Discharge Plan Visit Data Chief Complaint: Vaginal Pain Stated Complaint: VAGINAL PAIN ED Provider: Tyler Oro Discharge Problem: Bacterial vaginal infection, Vaginal pain, Failure of outpatient treatment Patient Disposition: Admitted As Inpatient Condition: Good Forms Stand Alone Forms: [facility] Prescriptions Prescriptions: No Action sulfamethoxazole-trimethoprim 800-160 mg tablet 1 tab PO BID Rx Instructions: Start Date 03/01/23 - End Date 03/11/23 furosemide 40 mg tablet 60 mg PO DAILY Rx Instructions: take 1 & 1/2 tab buspirone 5 mg tablet 5 mg PO TID mycophenolate mofetil 500 mg tablet 500 mg PO AMHS citalopram [Celexa] 20 mg Tablet 20 mg PO QAM potassium chloride 20 mEq tablet,ER particles/crystals 20 meq PO DAILY amitriptyline 25 mg tablet 25 mg PO HS ferrous sulfate [iron] 325 mg (65 mg iron) Tablet 325 mg PO DAILY omeprazole 20 mg capsule,delayed release(DR/EC) 20 mg PO DAILY loratadine 10 mg tablet 10 mg PO DAILY calcium carbonate-vitamin D3 [Calcium 500 With D] 500 mg(1,250mg) -400 unit Tablet 1 tab PO DAILY Prolia 60 mg/mL Syringe 60 mg SUBCUT DIRECTED ascorbic acid (vitamin C) [Vitamin C] 500 mg Tablet 500 mg PO DAILY cholecalciferol (vitamin D3) [Vitamin D3] 25 mcg (1,000 unit) Tablet 25 mcg PO DAILY meloxicam [Mobic] 15 mg Tablet 15 mg PO DAILY prednisone 5 mg Tablet 5 mg PO DAILY cholestyramine (with sugar) 4 gram powder in packet 1 ea PO QAM ketoconazole 2 % cream 1 applic topical BID Qty: 60 0RF Referrals Referrals: Usha Mccrary DO [Primary Care Provider] -
[2023-03-05 17:24] LABS: Basophils # (auto) 0.01 K/uL (0-0.2); Basophils % (auto) 0.1 %; Eosinophils # (auto) 0.01 K/uL (0-0.50); Eosinophils % (auto) 0.1 %; Hematocrit (blood only) 38.2 % (37.0-47.0); Hemoglobin 12.1 g/dl (12.0-16.0); Immature Granulocytes # (auto) 0.05 K/uL (0.01-0.20); Immature Granulocytes % (auto) 0.7 %; Lymphocytes # (auto) 0.71 K/uL (1.2-3.4); Lymphocytes % (auto) 9.5 %; Mean Corpuscular Hemoglobin 27.6 pg (25.0-34.0); Mean Corpuscular Hgb Conc 31.7 g/dL (32.0-36.0); Mean Corpuscular Volume 87.2 fL (80.0-100.0); Mean Platelet Volume 10.7 fL (9.4-12.4); Monocytes # (auto) 0.49 K/uL (0.11-0.59); Monocytes % (auto) 6.6 %; Neutrophils # (auto) 6.21 K/uL (1.40-6.50); Platelet Count 257 K/uL (130-400); RDW Coefficient of Variation 13.3 % (11.5-14.5); RDW Standard Deviation 42.4 fL (36.4-46.3); Red Blood Count 4.38 M/uL (4.20-5.40); White Blood Count 7.48 K/ul (4.8-10.8)
[2023-03-05] MEDS ORDERED: Patient's HEIGHT &/or WEIGHT Needed STA (17:33)
[2023-03-05 17:34] LABS: Alanine Aminotransferase 9 U/L (7-52); Alkaline Phosphatase 50 U/L (34-104); Anion Gap 8 (3-11); Aspartate Aminotransferase 17 U/L (13-39); BUN Creatinine Ratio 12.6 (10-20); Bilirubin,Total 0.3 mg/dl (0.2-1.0); Blood Urea Nitrogen 12 mg/dl (6-23); Calcium 9.7 mg/dl (8.6-10.3); Carbon Dioxide 25 mmol/L (21-32); Chloride 103 mmol/L (98-107); Est GFR (Non-African American) 57.8 ml/min; Glucose 113 mg/dl (70-99(Fasting)); Magnesium 1.8 mg/dl (1.7-2.4); Potassium 4.4 mmol/L (3.5-5.1); Sodium 136 mmol/L (136-145); Total Protein 6.9 gm/dl (6.0-8.3)
[2023-03-05 17:40] LABS: Troponin I High Sensitivity 10.1 pg/ml (0-14)
[2023-03-05] MEDS ORDERED: VANCOMYCIN HCL 1,750 MG in SODIUM CHLORIDE 0.9% 500 ML IV ONE (17:45)
[2023-03-05] MEDS ORDERED: OPTIRAY 320 100ml IV ONE (18:23)
[2023-03-05 19:08] LABS: Appearance Urine Turbid (Clear); Bilirubin Urine Negative (Negative); Blood Urine 2+ (Negative); Color Urine Yellow; Glucose Urine UA Negative (Negative); Ketones Urine Negative (Negative); Leukocyte Esterase Urine 3+ (Negative); Nitrite Urine Negative (Negative); Protein Urine 2+ (Negative); Specific Gravity Urine 1.015 (1.000-1.030); Urobilinogen Urine Negative (Negative); pH Urine 5.5 (4.5-7.5)
--- NOTE | 2023-03-05 19:10 | CT Scan Report ---
CT abd pelvis IV con only CLINICAL HISTORY: vag lesion, poss abscess or mass, pain TECHNIQUE: Helical axial images of the abdomen and pelvis were obtained and displayed. Automated dose lowering techniques and/or adjustment according to patient size were utilized for this exam. This e xam was performed with intravenous contrast. CT DOSE: 1429.15 mGy.cm COMPARISON: Comparison is made to CT pelvis 04/11/2021 FINDINGS: Lower chest: Bibasilar atelectasis versus scarring is seen. Liver: Hepatic calcifications are seen. Gallbladder and biliary tree: Patient is status post cholecystectomy. No intra- or extrahepatic bilia ry ductal dilation. Pancreas: Fatty replacement of the pancreas is seen. Spleen: Splenule is incidentally noted. Adrenals: Unremarkable. Kidneys and ureters: Subcentimeter hypodensities are too small to characterize. Bladder: Unremarkable. Reproductive organs: Patient is status post hysterectomy. No vaginal abscess is seen. Bowel: Diverticulosis is seen without evidence of diverticulitis. A hiatal hernia is seen. Lymph nodes Retroperitoneal: Unremarkable. Pelvic: Unremarkable. Mesenteric: Unremarkable. Peritoneum: Normal. Vessels: Atherosclerotic calcifications are seen. Abdominal wall: A fat-containing umbilical hernia is seen. There is a fat-containing right inguinal h ernia. Bones: There is an age-indeterminate fracture of the right lateral eighth rib, favored to be chronic. Degenerative changes are seen in the spine. IMPRESSION: 1. No acute abnormalities are seen below the diaphragm, in particular no vaginal abscess seen. 2. Age-indeterminate, likely chronic right eighth rib fracture. ACT 112: Negative or not required by law. Electronically signed by: Roman Metzger M.D. 03/05/2023 7:08 PM
[2023-03-05 19:26] LABS: Bacteria Urine 3+ (Negative); Epithelial Cell Urine >30 /lpf (0-5); WBC Urine >30 /hpf (0-5)
--- NOTE | 2023-03-05 20:51 | History & Physical Report ---
Date of Service March 05, 2023 Assessment & Plan (1) Vaginitis: Plan: Worsening vaginitis History of vaginal ulcer (E.coli on outpatient wound CS) on recent Bactrim course Immunocompromised patient hx bullous pemphigoid on CellCept, prednisone, and topical tacrolimus, No sepsis for now Situational hypertension asthma/COPD, stable Rheumatoid arthritis as per records Steroid-induced hyperglycemia rule out DM mild cognitive impairment/intellectual disability as per records functional disability Medical telemetry given BP elevation Analgesia, angiolytic as needed Clonidine as needed BP elevation Cefepime, Doxycycline for wound infection Gynecology consult re: worsening vaginitis Check hemoglobin A1c PT OT eval Social service RE discharge planning, possible placement DVT prophylaxis with SCDS RE vaginal lesions with intermittent bleeding Full code Patient requesting for her friend to be updated of plan of care. Ms. Jena Reynolds, contact #[phone]. Text document was generated using [employer] voice recognition software. It may contain grammatical or spelling errors. Kindly contact undersigned for clarification of any documentation item in question. History of Present Illness Chief Complaint: Worsening vaginal vaginal infection as per patient friend Primary Care Provider: Usha Mccrary DO History obtained from patient, friend, and records. Medical history significant for asthma/COPD, bullous pemphigoid on currently on CellCept, steroid, and topical tacrolimus, GERD, mild cognitive impairment/intellectual disability as per records, rheumatoid arthritis as per records, vaginal ulcer ongoing Bactrim Rx, anxiety/mood disorder. Last confinement March 2021 for perineal ulcerations, intertriginous candidiasis and situational hypertension. Gynecology recommended topical steroid on vulvar lesion. Patient temporarily stayed at [facility] from October to January 2023 because patient's home had to be decontaminated from bedbug infestation. Patient noted to have a vaginal sore last month at the detention. Sore did not improve with antifungal Rx. Patient complained of worsening vaginal pain when she returned home 2 weeks ago. Vaginal ulcer with purulent drainage noted by friend. Patient seen at [facility] Gynecology outpatient about 10 days ago. Atrophic vagina with large ulcer noted in the left labia majora extending to the perineum. Vulvar biopsy done later showed bullous pemphigoid. Vaginosis panel was negative. Pansensitive E. coli growth from wound cultures. Patient prescribed Bactrim course. Worsening lesion size and pain with new bumps noted in patient's groin area. No fever, no chills. No headache. No chest pain, no SOB. Patient friend has concerns about patient's ability to be by herself at home. Caregivers limited in what they can do for patient as per patient's friend. Patient brought to the ER for evaluation. Vancomycin and cefepime administered at the ER. Medical Historyas above Surgical History : Breast biopsy, cholecystostomy Family History : Heart disease Personal/Social history : Past tobacco abuse, no EtOH intake, retired from factory work, lives by herself Allergies Allergy/AdvReac Type Severity Reaction Status Date / Time fluconazole Allergy Intermediate Rash Verified 03/05/23 19:11 adhesive tape Allergy Mild skin Verified 03/05/23 19:11 irritation Penicillins Allergy Unknown Unknown Verified 03/05/23 19:11 Home Medications Medication Instructions Recorded Confirmed Type amitriptyline 25 mg tablet 25 mg PO HS 04/19/21 03/05/23 History ascorbic acid (vitamin C) 500 mg 500 mg PO DAILY 04/19/21 03/05/23 History tablet (Vitamin C) buspirone 5 mg tablet 5 mg PO TID 04/19/21 03/05/23 History calcium carbonate 500 mg-vitamin 1 tab PO DAILY 04/19/21 03/05/23 History D3 10 mcg (400 unit) tablet (Calcium 500 With D) cholecalciferol (vitamin D3) 25 25 mcg PO DAILY 04/19/21 03/05/23 History mcg (1,000 unit) tablet (Vitamin D3) citalopram 20 mg tablet (Celexa) 20 mg PO QAM 04/19/21 03/05/23 History denosumab 60 mg/mL subcutaneous 60 mg subcut DIRECTED 04/19/21 03/05/23 History syringe (Prolia) ferrous sulfate 325 mg (65 mg 325 mg PO DAILY 04/19/21 03/05/23 History iron) tablet (iron) furosemide 40 mg tablet 60 mg PO DAILY 04/19/21 03/05/23 History loratadine 10 mg tablet 10 mg PO DAILY 04/19/21 03/05/23 History mycophenolate mofetil 500 mg tablet 500 mg PO AMHS 04/19/21 03/05/23 History omeprazole 20 mg capsule,delayed 20 mg PO DAILY 04/19/21 03/05/23 History release potassium chloride 20 mEq 20 meq PO DAILY 04/19/21 03/05/23 History tablet,extended release(part/cryst) cholestyramine (with sugar) 4 gram 1 ea PO QAM 10/24/22 03/05/23 History powder for susp in a packet ketoconazole 2 % topical cream 1 applic topical BID #60 grams 10/24/22 03/05/23 Rx meloxicam 15 mg tablet 15 mg PO DAILY 10/24/22 03/05/23 History prednisone 5 mg tablet 5 mg PO DAILY 10/24/22 03/05/23 History sulfamethoxazole 800 1 tab PO BID 03/05/23 03/05/23 History mg-trimethoprim 160 mg tablet Past Med/Surg History Medical History Asthma, moderate persistent Asymptomatic hypertensive urgency BP (bullous pemphigoid) Cellulitis of labia COPD (chronic obstructive pulmonary disease) Depression DVT prophylaxis CARLOS (generalized anxiety disorder) Generalized osteoarthritis GERD (gastroesophageal reflux disease) Leukocytosis Mild cognitive impairment Sacral ulcer Ulcer of perineum Social History Smoking Status: Never smoker Hx Alcohol Use: No Hx Substance Use: No Preferred Language: Korean Communication Ability: Effective Screening Nurse Required: No Beliefs That Will Affect Care: None marital status: / Current Living Situation: Alone How many Children do You have: 0 Feels Safe at Home: Yes Assistive Devices: None Review of Systems Review of Systems: As per HPI, all other systems reviewed and negative Physical Exam Physical Exam: GENERAL: Comfortable, pleasant, obese, slightly anxious, no respiratory distress SKIN: Normal color, warm HEENT: Bespectacled, [place] palpebral conjunctivae, no ptosis, moist buccal mucosa NECK : Supple, short neck, no tenderness CHEST : CTA, no tenderness HEART : RRR, no obvious murmurs ABDOMEN: Some distention, nontender : Tender ulceration left labia, minimal tenderness EXTREMITIES : Minimal LE swelling, no LE tenderness, no other conspicuous deformities noted NEUROLOGIC : Coherent, no facial asymmetry, no other gross focality Results & Data Results & Data Vital Signs (Past 12 Hours) Vital Signs Temp Pulse Pulse Resp BP BP Pulse Ox 03/05/23 20:31 90 22 158/53 H 94 03/05/23 20:18 94 H 20 168/65 H 99 03/05/23 20:01 84 16 136/52 L 96 03/05/23 19:31 87 21 147/94 H 97 03/05/23 19:05 85 23 157/70 H 97 03/05/23 18:10 85 27 H 97 03/05/23 18:00 84 18 95 03/05/23 17:50 84 19 97 03/05/23 17:40 84 23 97 03/05/23 17:30 85 24 95 03/05/23 17:20 85 19 95 03/05/23 17:10 88 21 95 03/05/23 17:04 91 H 21 95 03/05/23 16:34 84 18 95 03/05/23 17:09 90 03/05/23 16:49 36.9 C 90 15 171/86 H 95 03/05/23 14:30 36.3 C L 93 H 16 147/81 H 95 O2 Del Method 03/05/23 20:31 Room Air 03/05/23 20:18 Room Air 03/05/23 20:01 Room Air 03/05/23 19:31 Room Air 03/05/23 19:05 Room Air 03/05/23 18:10 03/05/23 18:00 03/05/23 17:50 03/05/23 17:40 03/05/23 17:30 03/05/23 17:20 03/05/23 17:10 03/05/23 17:04 03/05/23 16:34 Room Air 03/05/23 17:09 03/05/23 16:49 Room Air 03/05/23 14:30 Room Air Laboratory Results Laboratory Results WBC 7.48 K/ul (4.8-10.8) 03/05/23 16:50 RBC 4.38 M/uL (4.20-5.40) 03/05/23 16:50 Hgb 12.1 g/dl (12.0-16.0) 03/05/23 16:50 Hct 38.2 % (37.0-47.0) 03/05/23 16:50 MCV 87.2 fL (80.0-100.0) 03/05/23 16:50 MCH 27.6 pg (25.0-34.0) 03/05/23 16:50 MCHC 31.7 g/dL (32.0-36.0) L 03/05/23 16:50 RDW Std Deviation 42.4 fL (36.4-46.3) 03/05/23 16:50 RDW Coeff of [place] 13.3 % (11.5-14.5) 03/05/23 16:50 Plt Count 257 K/uL (130-400) 03/05/23 16:50 MPV 10.7 fL (9.4-12.4) 03/05/23 16:50 Immature Gran % (Auto) 0.7 % 03/05/23 16:50 Neut % (Auto) 83.0 % 03/05/23 16:50 Lymph % (Auto) 9.5 % 03/05/23 16:50 [place] % (Auto) 6.6 % 03/05/23 16:50 Eos % (Auto) 0.1 % 03/05/23 16:50 Baso % (Auto) 0.1 % 03/05/23 16:50 Neut # (Auto) 6.21 K/uL (1.40-6.50) 03/05/23 16:50 Lymph # (Auto) 0.71 K/uL (1.2-3.4) L 03/05/23 16:50 [place] # (Auto) 0.49 K/uL (0.11-0.59) 03/05/23 16:50 Eos # (Auto) 0.01 K/uL (0-0.50) 03/05/23 16:50 Baso # (Auto) 0.01 K/uL (0-0.2) 03/05/23 16:50 Immature Gran # (Auto) 0.05 K/uL (0.01-0.20) 03/05/23 16:50 Sodium 136 mmol/L (136-145) 03/05/23 16:50 Potassium 4.4 mmol/L (3.5-5.1) 03/05/23 16:50 Chloride 103 mmol/L (98-107) 03/05/23 16:50 Carbon Dioxide 25 mmol/L (21-32) 03/05/23 16:50 Anion Gap 8 (3-11) 03/05/23 16:50 BUN 12 mg/dl (6-23) 03/05/23 16:50 Creatinine 0.95 mg/dl (0.6-1.2) 03/05/23 16:50 Est Cr Clr Drug Dosing Not Reportable 03/05/23 16:50 Est GFR ( Amer) 67.0 ml/min 03/05/23 16:50 Est GFR (Non-Af Amer) 57.8 ml/min 03/05/23 16:50 BUN/Creatinine Ratio 12.6 (10-20) 03/05/23 16:50 Glucose 113 mg/dl (70-99(Fasting)) H 03/05/23 16:50 Lactate 1.3 mmol/L (0.4-2.0) 03/05/23 16:50 Calcium 9.7 mg/dl (8.6-10.3) 03/05/23 16:50 Magnesium 1.8 mg/dl (1.7-2.4) 03/05/23 16:50 Total Bilirubin 0.3 mg/dl (0.2-1.0) 03/05/23 16:50 Direct Bilirubin 0.0 mg/dl (0-0.2) 03/05/23 16:50 AST 17 U/L (13-39) 03/05/23 16:50 ALT 9 U/L (7-52) 03/05/23 16:50 Alkaline Phosphatase 50 U/L (34-104) 03/05/23 16:50 Troponin I High Sens 10.1 pg/ml (0-14) 03/05/23 16:50 Total Protein 6.9 gm/dl (6.0-8.3) 03/05/23 16:50 Albumin 4.0 gm/dl (3.4-5.0) 03/05/23 16:50 Procalcitonin 0.05 ng/ml (0-0.5) 03/05/23 16:50 Urine Color Yellow 03/05/23 18:34 Urine Appearance Turbid (Clear) A 03/05/23 18:34 Urine pH 5.5 (4.5-7.5) 03/05/23 18:34 Ur Specific [place] 1.015 (1.000-1.030) 03/05/23 18:34 Urine Protein 2+ (Negative) H 03/05/23 18:34 Urine Glucose (UA) Negative (Negative) 03/05/23 18:34 Urine Ketones Negative (Negative) 03/05/23 18:34 Urine Blood 2+ (Negative) H 03/05/23 18:34 Urine Nitrite Negative (Negative) 03/05/23 18:34 Urine Bilirubin Negative (Negative) 03/05/23 18:34 Urine Urobilinogen Negative (Negative) 03/05/23 18:34 Ur Leukocyte Esterase 3+ (Negative) H 03/05/23 18:34 Urine RBC 10-30 /hpf (0-4) H 03/05/23 18:34 Urine WBC >30 /hpf (0-5) H 03/05/23 18:34 Ur Epithelial Cells >30 /lpf (0-5) H 03/05/23 18:34 Urine Bacteria 3+ (Negative) H 03/05/23 18:34 SARS-CoV-2, RNA, NAAT NEGATIVE (NEGATIVE) 03/05/23 Unknown Impressions Abdomen/Pelvis CT 03/05/23 16:34 CT abd pelvis IV con only CLINICAL HISTORY: vag lesion, poss abscess or mass, pain TECHNIQUE: Helical axial images of the abdomen and pelvis were obtained and displayed. Automated dose lowering techniques and/or adjustment according to patient size were utilized for this exam. This exam was performed with intravenous contrast. CT DOSE: 1429.15 mGy.cm COMPARISON: Comparison is made to CT pelvis 04/11/2021 FINDINGS: Lower chest: Bibasilar atelectasis versus scarring is seen. Liver: Hepatic calcifications are seen. Gallbladder and biliary tree: Patient is status post cholecystectomy. No intra- or extrahepatic biliary ductal dilation. Pancreas: Fatty replacement of the pancreas is seen. Spleen: Splenule is incidentally noted. Adrenals: Unremarkable. Kidneys and ureters: Subcentimeter hypodensities are too small to characterize. Bladder: Unremarkable. Reproductive organs: Patient is status post hysterectomy. No vaginal abscess is seen. Bowel: Diverticulosis is seen without evidence of diverticulitis. A hiatal hernia is seen. Lymph nodes Retroperitoneal: Unremarkable. Pelvic: Unremarkable. Mesenteric: Unremarkable. Peritoneum: Normal. Vessels: Atherosclerotic calcifications are seen. Abdominal wall: A fat-containing umbilical hernia is seen. There is a fat- containing right inguinal hernia. Bones: There is an age-indeterminate fracture of the right lateral eighth rib, favored to be chronic. Degenerative changes are seen in the spine. IMPRESSION: 1. No acute abnormalities are seen below the diaphragm, in particular no vaginal abscess seen. 2. Age-indeterminate, likely chronic right eighth rib fracture. ACT 112: Negative or not required by law. Electronically signed by: Roman Metzger M.D. 03/05/2023 7:08 PM Chest X-Ray 03/05/23 16:34 XR chest 1V portable CLINICAL HISTORY: Sepsis TECHNIQUE: Single frontal radiograph of the chest was obtained. Comparison: Comparison is made to chest radiograph 10/24/2022 FINDINGS: Exam is limited by underpenetration. The cardiomediastinal silhouette is normal. The lungs are clear. No evidence of pleural effusion or pneumothorax. IMPRESSION: No acute abnormalities and in particular no radiographic evidence of pneumonia. ACT 112: Negative or not required by law. Electronically signed by: Roman Metzger M.D. 03/05/2023 4:55 PM Diagnostic Findings EKG as per my interpretation : Rate 85, NSR, normal axis, no ischemia
[2023-03-05] MEDS ORDERED: oxyCODONE HCL IR 5 MG TAB (IMMEDIATE RELEASE) PO PRN (23:39)
[2023-03-05] MEDS ORDERED: PROMETHAZINE HCL 12.5 MG in SODIUM CHLORIDE 0.9% 50 ML IV PRN (23:39)
[2023-03-06] MEDS: busPIRone 5 MG TAB PO SCH ×4 (00:53→21:40)
[2023-03-06] MEDS: MYCOPHENOLATE MOFETIL 250 MG CAP PO SCH ×3 (00:53→21:40)
[2023-03-06] MEDS: AMITRIPTYLINE HCL 25 MG TAB PO SCH ×2 (00:53→21:40)
[2023-03-06] MEDS: CEFEPIME 2,000 MG in SYRINGE 0 ML IV SCH ×2 (00:59→09:07)
[2023-03-06 06:12] LABS: Basophils # (auto) 0.02 K/uL (0-0.2); Basophils % (auto) 0.3 %; Eosinophils % (auto) 1.5 %; Hematocrit (blood only) 33.9 % (37.0-47.0); Hemoglobin 10.6 g/dl (12.0-16.0); Immature Granulocytes # (auto) 0.02 K/uL (0.01-0.20); Immature Granulocytes % (auto) 0.3 %; Lymphocytes # (auto) 1.32 K/uL (1.2-3.4); Lymphocytes % (auto) 19.4 %; Mean Corpuscular Hemoglobin 27.5 pg (25.0-34.0); Mean Corpuscular Hgb Conc 31.3 g/dL (32.0-36.0); Mean Corpuscular Volume 88.1 fL (80.0-100.0); Mean Platelet Volume 10.9 fL (9.4-12.4); Monocytes % (auto) 10.3 %; Neutrophils # (auto) 4.65 K/uL (1.40-6.50); Neutrophils % (auto) 68.2 %; Platelet Count 209 K/uL (130-400); RDW Coefficient of Variation 13.5 % (11.5-14.5); RDW Standard Deviation 43.3 fL (36.4-46.3); Red Blood Count 3.85 M/uL (4.20-5.40); White Blood Count 6.81 K/ul (4.8-10.8)
[2023-03-06 06:23] LABS: BUN Creatinine Ratio 11.3 (10-20); Calcium 8.3 mg/dl (8.6-10.3); Creatinine Clr Calc Pharmacy 54.4 ml/min; Est GFR (African American) 82.4 ml/min; Est GFR (Non-African American) 71.1 ml/min
[2023-03-06 07:48] LABS: Estimated Average Glucose 103 mg/dl; Hemoglobin A1C 5.2 % (4.5-5.6)
[2023-03-06] MEDS: DOXYCYCLINE HYCLATE 100 MG CAP PO SCH ×2 (09:08→21:39)
[2023-03-06] MEDS: CITALOPRAM 20 MG TAB PO SCH (09:08)
[2023-03-06] MEDS: FERROUS SULFATE 325 MG TAB PO SCH (09:09)
[2023-03-06] MEDS: LORATADINE 10 MG TAB PO SCH (09:09)
[2023-03-06] MEDS: PANTOprazole 40 MG TAB PO SCH (09:10)
[2023-03-06] MEDS: predniSONE 5 MG TAB PO SCH (09:10)
[2023-03-06] MEDS: CHOLESTYRAMINE LIGHT 4 GM PKT PO SCH (10:56)
[2023-03-06] MEDS: ACETAMINOPHEN 325 MG TAB PO PRN (11:01)
--- NOTE | 2023-03-06 12:38 | OB/GYN Consultation ---
Date of Consultation March 06, 2023 Assessment & Plan (1) Vaginal pain: Zinc oxide will be added to patient's medications thank you History of Present Illness Reason for Consultation: Vulvar lesion Requesting Physician: Dr. Salinas Attending Physician: Jena Castanon MD History of Present Illness 77-year-old postmenopausal female presents from the emergency room complaining of vulvar pain patient had a recent visit on February 24 at the [facility]ISTRY NURSE office and had a biopsy for a vulvar lesion on the left the biopsy was negative for any malignancy. She has a history of bullous pemphigoid that has been present for some time now at the same location and this has worsened pain and redness has gotten worse the lesion is bothersome to the patient so she presented to the ER. Allergies Allergy/AdvReac Type Severity Reaction Status Date / Time fluconazole Allergy Intermediate Rash Verified 03/05/23 19:11 adhesive tape Allergy Mild skin Verified 03/05/23 19:11 irritation Penicillins Allergy Unknown Unknown Verified 03/05/23 19:11 Home Medications Medication Instructions Recorded Confirmed Type amitriptyline 25 mg tablet 25 mg PO HS 04/19/21 03/05/23 History ascorbic acid (vitamin C) 500 mg 500 mg PO DAILY 04/19/21 03/05/23 History tablet (Vitamin C) buspirone 5 mg tablet 5 mg PO TID 04/19/21 03/05/23 History calcium carbonate 500 mg-vitamin 1 tab PO DAILY 04/19/21 03/05/23 History D3 10 mcg (400 unit) tablet (Calcium 500 With D) cholecalciferol (vitamin D3) 25 25 mcg PO DAILY 04/19/21 03/05/23 History mcg (1,000 unit) tablet (Vitamin D3) citalopram 20 mg tablet (Celexa) 20 mg PO QAM 04/19/21 03/05/23 History denosumab 60 mg/mL subcutaneous 60 mg subcut DIRECTED 04/19/21 03/05/23 History syringe (Prolia) ferrous sulfate 325 mg (65 mg 325 mg PO DAILY 04/19/21 03/05/23 History iron) tablet (iron) furosemide 40 mg tablet 60 mg PO DAILY 04/19/21 03/05/23 History loratadine 10 mg tablet 10 mg PO DAILY 04/19/21 03/05/23 History mycophenolate mofetil 500 mg tablet 500 mg PO AMHS 04/19/21 03/05/23 History omeprazole 20 mg capsule,delayed 20 mg PO DAILY 04/19/21 03/05/23 History release potassium chloride 20 mEq 20 meq PO DAILY 04/19/21 03/05/23 History tablet,extended release(part/cryst) cholestyramine (with sugar) 4 gram 1 ea PO QAM 10/24/22 03/05/23 History powder for susp in a packet ketoconazole 2 % topical cream 1 applic topical BID #60 grams 10/24/22 03/05/23 Rx meloxicam 15 mg tablet 15 mg PO DAILY 10/24/22 03/05/23 History prednisone 5 mg tablet 5 mg PO DAILY 10/24/22 03/05/23 History sulfamethoxazole 800 1 tab PO BID 03/05/23 03/05/23 History mg-trimethoprim 160 mg tablet Patient History Medical History Asthma, moderate persistent Asymptomatic hypertensive urgency BP (bullous pemphigoid) Cellulitis of labia COPD (chronic obstructive pulmonary disease) Depression DVT prophylaxis CARLOS (generalized anxiety disorder) Generalized osteoarthritis GERD (gastroesophageal reflux disease) Leukocytosis Mild cognitive impairment Sacral ulcer Ulcer of perineum Social History Smoking Status: Never smoker Hx Alcohol Use: No Hx Substance Use: No Preferred Language: Turkmen Communication Ability: Effective Java Xml Developer Required: No Beliefs That Will Affect Care: None marital status: / Current Living Situation: Alone How many Children do You have: 0 Feels Safe at Home: Yes Assistive Devices: Walker Review of Systems Review of Systems: All systems reviewed & are unremarkable except as noted in HPI & below Physical Exam Constitutional: WD/WN, vitals as above Genitourinary: no vaginal lesions, no adnexal mass The patient was examined with the nurse present for the exam there is an approximate 4 cm elliptical lesion with defined borders that is on the left perineum extending from the perineum to the rectum this is somewhat irregular with a central reddening of the lesion. There is no bleeding or discharge noted. This does not appear to be Aut[place] patient had a vaginosis panel done February 24 and this was all negative. It seems that this is more of dermatitis like pattern in the biopsy possibly shows early LAURYN changes. Results & Data Vital Signs (Past 12 Hours) Vital Signs Temp Pulse Pulse Pulse Resp BP BP 03/06/23 12:08 36.3 C L 84 18 120/71 03/06/23 11:31 03/06/23 07:43 36.5 C 82 18 119/67 03/06/23 07:36 80 03/06/23 02:41 03/06/23 02:42 36.6 C 86 20 131/72 03/06/23 02:00 85 19 104/57 L 03/06/23 01:30 84 20 102/53 L 03/06/23 01:00 18 133/62 Pulse Ox O2 Del Method 03/06/23 12:08 96 Room Air 03/06/23 11:31 Room Air 03/06/23 07:43 94 Room Air 03/06/23 07:36 03/06/23 02:41 Room Air 03/06/23 02:42 95 Room Air 03/06/23 02:00 93 Room Air 03/06/23 01:30 95 Room Air 03/06/23 01:00 95 Room Air
--- NOTE | 2023-03-06 14:08 | Electrocardiogram Report ---
Test Reason : Blood Pressure : / mmHG Vent. Rate : 087 BPM Atrial Rate : 087 BPM P-R Int : 154 ms QRS Dur : 076 ms QT Int : 382 ms P-R-T Axes : 034 060 042 degrees QTc Int : 459 ms Normal sinus rhythm Normal ECG When compared with ECG of 24-OCT-2022 13:50, No significant change was found Confirmed by Popeye Sloan ([id number]) on 03/06/2023 2:08:19 PM Referred By: Usha Mccrary Confirmed By:Popeye Sloan
[2023-03-06] MEDS: BUTT PASTE (ZINC OXIDE 16%) 171 APPLN/57 GM JAR EXT SCH ×2 (14:18→21:41)
[2023-03-06] MEDS ORDERED: PNEUMOCOCCAL Polysaccharide Vaccine 25mcg/0.5mL vial/Syr IM ONE (16:00)
[2023-03-06] MEDS ORDERED: VANCOMYCIN HCL 1,750 MG in SODIUM CHLORIDE 0.9% 500 ML IV ONE (16:09)
[2023-03-06] MEDS ORDERED: VANCOMYCIN CONSULT ACTIVE PRN (16:12)
[2023-03-06] MEDS ORDERED: ALBUTEROL HFA 8 GM INHALER INH PRN (16:13)
--- NOTE | 2023-03-06 16:27 | Pharmacy Report ---
Pharmacy PK ABX Note - Date of Service March 06, 2023 - Assessment and Plan Assessment 77 year old F receiving vancomycin and ceftriaxone for treatment of a vaginal ulcer. Vaginal culture (from OSH 02/24) (+) brown-sensitive E.coli, Enterococcus spp (PCN sensitive), and Corynebacterium. Blood cultures pending. Renal function stable. Day # 2 antimicrobial therapy. Plan Vancomycin * Loading dose: 1750 IV X q1 (given 03/05 @ 1830) and vancomycin not intitially continued on admission. * This afternoon, vancomycin re-initiated. Will give a supplemental 500mg IV X 1 dose NOW. * Maintenance dose: 1500 mg IV every 24 hours starting later tonight * Regimen is predicted to achieve target AUC/SABRINA of 400-600 mg/L.hr * Will obtain a random level with AM labs to guide further dosing. Pharmacy will continue to follow and will adjust dose/frequency as necessary. Thank you. Pharmacy has transitioned to AUC monitoring for vancomycin. AUC/SABRINA is the preferred PK/PD target and is associated with decreased risk of nephrotoxicity compared to traditional trough targets.
[2023-03-06] MEDS ORDERED: VANCOMYCIN HCL 500 MG in NSS 100mL IV ONE (16:30)
--- NOTE | 2023-03-06 16:59 | Hospitalist Progress Note ---
Date of Service March 06, 2023 Assessment & Plan (1) Vaginitis: Plan: 77yoF with vaginal lesion requiring admission. Outside recent biopsy suggests bullous pemphigoid lesion. Outside recent wound culture growing corynobacterium, enterococcus and E. coli. Worsening vaginitis History of vaginal ulcer (E.coli, corynebacterium and enterococcus on outpatient wound CS) on recent Bactrim course Immunocompromised patient hx bullous pemphigoid on CellCept, prednisone, and topical tacrolimus No sepsis, continue with rocephin and Vancomycin for treatment, topical clobetasol and doxycycline for further treatment of bullous lesion. Appreciate LEGAL SUPPORT ANALYST recs Situational hypertension-stable asthma/COPD, requesting inhaler, ordered Rheumatoid arthritis-stable mild cognitive impairment/intellectual disability -stable functional disability PT OT eval Social service RE discharge planning, possible placement DVT prophylaxis with SCDS RE vaginal lesions with intermittent bleeding Full code Admission and Anticipated Discharge Date Admission Date: March 05, 2023 Subjective States she has been wheezing, requesting an inhaker. Denies itching of the vulva, but states some slight pain. Review of Systems Review of Systems: All systems reviewed & are unremarkable except as noted in Subjective Physical Exam Physical Exam: General: Alert. No acute distress Skin: Noted sloughing of the skin in the vulvar area extending to anus Psych: Appropriate mood and affect Neuro: No gross deficits HEENT: NC/AT CV: RRR, Normal s1, s2. No murmurs appreciated Resp: Breath sounds echoing bilaterally, no increased effort of breathing. Abdomen:Soft, nontender, nondistended. No guarding. No organomegaly appreciated. Extremities: No edema in lower extremities bilaterally. Results & Data Results & Data Vital Signs (Past 12 Hours) Vital Signs Temp Pulse Pulse Resp BP Pulse Ox O2 Del Method 03/06/23 16:27 82 03/06/23 15:19 36.7 C 82 18 112/65 96 Room Air 03/06/23 12:08 36.3 C L 84 18 120/71 96 Room Air 03/06/23 11:31 Room Air 03/06/23 07:43 36.5 C 82 18 119/67 94 Room Air 03/06/23 07:36 80
[2023-03-06] MEDS: cefTRIAXone SODIUM 1,000 MG in DEXTROSE 5% AD-VAN 50 ML IV SCH (18:26)
[2023-03-06] MEDS ORDERED: VANCOMYCIN HCL 1,250 MG in SODIUM CHLORIDE 0.9% 500 ML IV SCH (21:00)
[2023-03-06] MEDS: CLOBETASOL PROPIONATE 0.05% OINT 15 GM TUBE EXT SCH (21:41)
[2023-03-07] MEDS: VANCOMYCIN HCL 1,500 MG in SODIUM CHLORIDE 0.9% 500 ML IV SCH ×2 (01:10→23:32)
[2023-03-07] MEDS: MYCOPHENOLATE MOFETIL 250 MG CAP PO SCH ×2 (08:11→20:37)
[2023-03-07] MEDS: busPIRone 5 MG TAB PO SCH ×3 (08:11→20:37)
[2023-03-07] MEDS: FERROUS SULFATE 325 MG TAB PO SCH (08:12)
[2023-03-07] MEDS: CITALOPRAM 20 MG TAB PO SCH (08:12)
[2023-03-07] MEDS: LORATADINE 10 MG TAB PO SCH (08:12)
[2023-03-07] MEDS: PANTOprazole 40 MG TAB PO SCH (08:12)
[2023-03-07] MEDS: DOXYCYCLINE HYCLATE 100 MG CAP PO SCH (08:12)
[2023-03-07] MEDS: predniSONE 5 MG TAB PO SCH (08:13)
--- NOTE | 2023-03-07 10:38 | Pharmacy Report ---
Pharmacy PK ABX Note - Date of Service March 07, 2023 - Assessment and Plan Assessment 03/07: Continues on vancomycin and ceftriaxone. Prelim blood cultures (-) at 24h. Renal function stable. 03/06: 77 year old F receiving vancomycin and ceftriaxone for treatment of a vaginal ulcer. Vaginal culture (from OSH 02/24) (+) brown-sensitive E.coli, Enterococcus spp (PCN sensitive), and Corynebacterium. Blood cultures pending. Renal function stable. Day # 2 antimicrobial therapy. Plan Vancomycin * Random level this AM (non-steady state, ~ 4.5 hr level), 26.9mcg/mL. This is predicted to achieve a ssAUC of 501mg/L.hr (ssTrough of 14mcg/mL) which is therapeutic. * Continue 1500 mg IV every 24 hours * Regimen is predicted to achieve target AUC/SABRINA of 400-600 mg/L.hr * Will repeat a level in ~48h or sooner if clinically indicated Pharmacy will continue to follow and will adjust dose/frequency as necessary. Thank you. Pharmacy has transitioned to AUC monitoring for vancomycin. AUC/SABRINA is the preferred PK/PD target and is associated with decreased risk of nephrotoxicity compared to traditional trough targets.
[2023-03-07 10:50] LABS: Basophils # (auto) 0.01 K/uL (0-0.2); Basophils % (auto) 0.2 %; Eosinophils # (auto) 0.14 K/uL (0-0.50); Eosinophils % (auto) 2.3 %; Hematocrit (blood only) 34.7 % (37.0-47.0); Hemoglobin 10.7 g/dl (12.0-16.0); Immature Granulocytes # (auto) 0.03 K/uL (0.01-0.20); Immature Granulocytes % (auto) 0.5 %; Lymphocytes # (auto) 1.31 K/uL (1.2-3.4); Lymphocytes % (auto) 21.7 %; Mean Corpuscular Hemoglobin 27.8 pg (25.0-34.0); Mean Corpuscular Hgb Conc 30.8 g/dL (32.0-36.0); Mean Corpuscular Volume 90.1 fL (80.0-100.0); Mean Platelet Volume 11.2 fL (9.4-12.4); Monocytes # (auto) 0.53 K/uL (0.11-0.59); Monocytes % (auto) 8.8 %; Neutrophils # (auto) 4.01 K/uL (1.40-6.50); Neutrophils % (auto) 66.5 %; Platelet Count 220 K/uL (130-400); RDW Coefficient of Variation 13.5 % (11.5-14.5); RDW Standard Deviation 44.4 fL (36.4-46.3); Red Blood Count 3.85 M/uL (4.20-5.40); White Blood Count 6.03 K/ul (4.8-10.8)
[2023-03-07 10:55] LABS: BUN Creatinine Ratio 13.4 (10-20); Calcium 8.5 mg/dl (8.6-10.3); Creatinine Clr Calc Pharmacy 65.3 ml/min; Est GFR (African American) 98.3 ml/min; Est GFR (Non-African American) 84.8 ml/min; Potassium 3.9 mmol/L (3.5-5.1)
[2023-03-07] MEDS: CLOBETASOL PROPIONATE 0.05% OINT 15 GM TUBE EXT SCH ×2 (11:16→20:36)
[2023-03-07] MEDS: BUTT PASTE (ZINC OXIDE 16%) 171 APPLN/57 GM JAR EXT SCH ×3 (11:19→20:37)
[2023-03-07] MEDS: CHOLESTYRAMINE LIGHT 4 GM PKT PO SCH (11:20)
[2023-03-07 11:40] LABS: Creatinine Clr Calc Pharmacy 71.7 ml/min; Est GFR (African American) 101.3 ml/min; Est GFR (Non-African American) 87.4 ml/min
--- NOTE | 2023-03-07 16:35 | Hospitalist Progress Note ---
Date of Service March 07, 2023 Assessment & Plan (1) Vaginitis: Plan 77yoF with vaginal lesion requiring admission. Outside recent biopsy suggests bullous pemphigoid lesion. Outside recent wound culture growing corynebacterium, enterococcus and E. coli. Worsening vaginal wound History of vaginal ulcer (E.coli, corynebacterium and enterococcus on outpatient wound Cx), on recent Bactrim course Immunocompromised patient. Hx bullous pemphigoid on CellCept, prednisone, and topical tacrolimus in the past. No sepsis, continue with rocephin and Vancomycin for treatment, topical clobetasol for further treatment of bullous lesion. Appreciate [employer] recs Situational hypertension-stable asthma/COPD,requesting inhaler, ordered Rheumatoid arthritis-stable mild cognitive impairment/intellectual disability-stable functional disability- PT OT eval DVT prophylaxis: Lovenox SQ Full code Admission and Anticipated Discharge Date Admission Date: March 05, 2023 Subjective States that her symptoms are improved today, no longer in pain. Was sitting at the bedside coloring. Denies itching of the vulva, denies pain. Review of Systems Review of Systems: All systems reviewed & are unremarkable except as noted in Subjective Physical Exam Physical Exam: General: Alert. No acute distress, sitting in chair at bedside Skin: Noted sloughing of the skin in the vulvar area extending to anus, open wound with noted ointment application Psych: Appropriate mood and affect Neuro: No gross deficits, intellectual delay HEENT: NC/AT CV: RRR, Normal s1, s2. No murmurs appreciated Resp: Breath sounds echoing bilaterally, no increased effort of breathing. Abdomen:Soft, nontender, nondistended. No guarding. No organomegaly appreciated. Extremities: No edema in lower extremities bilaterally. Results & Data Results & Data Vital Signs (Past 12 Hours) Vital Signs Temp Pulse Pulse Resp BP BP Pulse Ox 03/07/23 16:00 70 03/07/23 16:00 36.3 C L 76 18 111/71 96 03/07/23 11:10 37.1 C 81 20 147/68 H 93 03/07/23 08:00 03/07/23 08:24 36.7 C 79 18 116/75 95 03/07/23 07:21 69 O2 Del Method 03/07/23 16:00 03/07/23 16:00 Room Air 03/07/23 11:10 Room Air 03/07/23 08:00 Room Air 03/07/23 08:24 Room Air 03/07/23 07:21
[2023-03-07] MEDS: cefTRIAXone SODIUM 1,000 MG in DEXTROSE 5% AD-VAN 50 ML IV SCH (17:13)
[2023-03-07] MEDS: ENOXAPARIN INJ 40 MG/0.4 ML SYR SQ SCH (18:18)
[2023-03-07] MEDS: AMITRIPTYLINE HCL 25 MG TAB PO SCH (20:37)
[2023-03-08] MEDS: CLOBETASOL PROPIONATE 0.05% OINT 15 GM TUBE EXT SCH ×2 (07:45→20:24)
[2023-03-08] MEDS: MYCOPHENOLATE MOFETIL 250 MG CAP PO SCH ×2 (07:45→20:24)
[2023-03-08] MEDS: predniSONE 5 MG TAB PO SCH (07:46)
[2023-03-08] MEDS: CITALOPRAM 20 MG TAB PO SCH (07:46)
[2023-03-08] MEDS: busPIRone 5 MG TAB PO SCH ×3 (07:46→20:25)
[2023-03-08] MEDS: LORATADINE 10 MG TAB PO SCH (07:47)
[2023-03-08] MEDS: PANTOprazole 40 MG TAB PO SCH (07:47)
[2023-03-08] MEDS: BUTT PASTE (ZINC OXIDE 16%) 171 APPLN/57 GM JAR EXT SCH ×3 (07:47→20:24)
[2023-03-08] MEDS: FERROUS SULFATE 325 MG TAB PO SCH (07:47)
[2023-03-08 08:09] LABS: Basophils # (auto) 0.02 K/uL (0-0.2); Basophils % (auto) 0.4 %; Eosinophils # (auto) 0.13 K/uL (0-0.50); Eosinophils % (auto) 2.4 %; Hematocrit (blood only) 36.2 % (37.0-47.0); Hemoglobin 10.9 g/dl (12.0-16.0); Immature Granulocytes # (auto) 0.04 K/uL (0.01-0.20); Immature Granulocytes % (auto) 0.7 %; Lymphocytes % (auto) 27.2 %; Mean Corpuscular Hemoglobin 27.1 pg (25.0-34.0); Mean Corpuscular Hgb Conc 30.1 g/dL (32.0-36.0); Monocytes # (auto) 0.46 K/uL (0.11-0.59); Monocytes % (auto) 8.3 %; Neutrophils # (auto) 3.36 K/uL (1.40-6.50); Platelet Count 230 K/uL (130-400); RDW Coefficient of Variation 13.3 % (11.5-14.5); RDW Standard Deviation 44.3 fL (36.4-46.3); Red Blood Count 4.02 M/uL (4.20-5.40); White Blood Count 5.51 K/ul (4.8-10.8)
[2023-03-08 08:25] LABS: BUN Creatinine Ratio 17.7 (10-20); Calcium 8.5 mg/dl (8.6-10.3); Creatinine Clr Calc Pharmacy 71.4 ml/min; Est GFR (African American) 100.8 ml/min; Potassium 3.7 mmol/L (3.5-5.1)
[2023-03-08] MEDS: CHOLESTYRAMINE LIGHT 4 GM PKT PO SCH (11:08)
--- NOTE | 2023-03-08 14:29 | Hospitalist Progress Note ---
Date of Service March 08, 2023 Assessment & Plan (1) Vaginal pain: Plan: History of vaginal lesion that was recently biopsied in the outpatient setting and negative for malignancy. Recently on bactrim, however, this was from a superficial wound and likely the bacteria discovered represent stool. Per physical exam findings above the patient is not able to wipe well after a BM and doesn't seem to understand that leaving sstool in this area can make this lesion more irritated. RN and I discussed that she really needs to be checked and wiped followed by zinc oxide paste to lesion after BMs. This is not infected and wound avoid steroid cream in this area (2) Immunocompromised state: Plan: h/o of bullous pemphigoid on immunosuppressant medication including CellCept and prednisone. (3) Intellectual delay: Plan: requires a "payree" to help her as well as other caregivers. Placement is planned for social reasons. (4) BP (bullous pemphigoid): Plan: in remission, cont Cellcept (5) Anxiety: Plan: chronic, stable. Cont citalopram per home regimen. Lovenox Full Code Dispo- uncertain at this time but patient wants to return home. Jena Gilmore DO [facility] Hospitalist Admission and Anticipated Discharge Date Admission Date: March 05, 2023 Subjective 77 yo F presents for an ongoing vaginal lesion that was burning her. She has an intellectual delay and is cared for by a "Payee" named noy who helps her with groceries, meds and ADLs, etc The patient reports feeling better today She denies fevers or chills She expresses a desire to go home and specifically doesn't want to go to a usp. Review of Systems Review of Systems: All systems reviewed negative septa indicated above Physical Exam Physical Exam: CONSTITUTIONAL: obese, vitals as above, generally well-appearing, NAD EYES: normal conjunctivae, no scleral icterus ENT: external ear and nose normal, NECK: trachea midline RESPIRATORY: clear to auscultation bilaterally, no crackles, rales or wheezes, normal respiratory effort CARDIOVASCULAR: regular rate and rhythm, S1 and 2 heard without murmurs, gallops or rubs, no JVD, no peripheral edema CHEST: inspection of chest was normal GASTROINTESTINAL: soft, nontender, ND, no guarding MUSCULOSKELETAL: strength 5/5 throughout, head is normocephalic and atraumatic SKIN: warm and dry : patient was in supine position for exam (RN Jewels grullon). Approximate 4 cm elliptical lesion with defined borders that is on the left perineum extending from the perineum to the rectum this is somewhat irregular with a central reddening of the lesion. There is no bleeding or discharge noted. She had fecal matter all over it from a poor wiping job previously. While getting cleaned by RN she was clearly grimacing and in pain. Better with application of butt paste. NEUROLOGIC: CN 2-12 grossly intact, no sensory deficit, normal cognition, normal speech, no tremor PSYCHIATRIC: alert cooperative and oriented to person, place and time. Euthymic mood, makes good eye contact, language grossly intact, recent and remote memory grossly intact. Results & Data Results & Data Vital Signs (Past 12 Hours) Vital Signs Temp Pulse Pulse Resp BP Pulse Ox O2 Del Method 03/08/23 11:29 36.4 C 74 20 133/85 96 Room Air 03/08/23 07:00 76 03/08/23 07:55 36.6 C 77 20 144/84 H 94 Room Air 03/08/23 04:02 36.7 C 76 18 134/78 95 Room Air Laboratory Results Short CBC 03/08/23 Range/Units 07:31 WBC 5.51 (4.8-10.8) K/ul Hgb 10.9 L (12.0-16.0) g/dl Hct 36.2 L (37.0-47.0) % Plt Count 230 (130-400) K/uL BMP 03/08/23 07:31 Sodium 140 Potassium 3.7 Chloride 109 H Carbon Dioxide 27 BUN 11 Creatinine 0.62 Glucose 85 Calcium 8.5 L Medications Administered Current Inpatient Medications Acetaminophen (Acetaminophen 325 Mg Tab) 650 mg PO Q4H PRN PRN Reason: Pain or Fever Stop: 04/04/23 23:38 Last Admin: 03/06/23 11:01 Dose: 650 mg Albuterol (Albuterol Hfa 8 Gm Inhaler) 2 puffs INH Q6H PRN PRN Reason: Shortness Of Breath Or Wheezing Stop: 04/05/23 16:14 Amitriptyline HCl (Amitriptyline Hcl 25 Mg Tab) 25 mg PO HS [facility] Stop: 04/04/23 23:38 Last Admin: 03/07/23 20:37 Dose: 25 mg Buspirone HCl (Buspirone 5 Mg Tab) 5 mg PO TID [facility] Stop: 04/04/23 23:38 Last Admin: 03/08/23 13:54 Dose: 5 mg Cholestyramine Resin (Cholestyramine Light 4 Gm Pkt) 4 gm PO DAILY@1100 [facility] Stop: 04/05/23 10:59 Last Admin: 03/08/23 11:08 Dose: 4 gm Citalopram Hydrobromide (Citalopram 20 Mg Tab) 20 mg PO QAM [facility] Stop: 04/05/23 08:59 Last Admin: 03/08/23 07:46 Dose: 20 mg Clobetasol Propionate (Clobetasol Propionate 0.05% Oint 15 Gm Tube) 0.05 appln EXT BID [facility] Stop: 04/05/23 20:59 Last Admin: 03/08/23 07:45 Dose: 0.05 appln Enoxaparin Sodium (Enoxaparin Inj 40 Mg/0.4 Ml Syr) 40 mg SQ Q24H [facility] Stop: 04/06/23 16:44 Last Admin: 03/07/23 18:18 Dose: 40 mg Ferrous Sulfate (Ferrous Sulfate 325 Mg Tab) 325 mg PO DAILY [facility] Stop: 04/05/23 08:59 Last Admin: 03/08/23 07:47 Dose: 325 mg Promethazine HCl 12.5 mg/ (Sodium Chloride) 50.5 mls @ 202 mls/hr IV Q6H PRN PRN Reason: Nausea And Vomiting Stop: 04/04/23 23:38 Ceftriaxone Sodium 1,000 mg/ (Dextrose) 50 mls @ 100 mls/hr IV Q24H [facility]; Protocol Stop: 03/13/23 16:59 Last Infusion: 03/07/23 17:54 Dose: Infused Vancomycin HCl 1,500 mg/ (Sodium Chloride) 530 mls @ 200 mls/hr IV Q18H [facility] Stop: 03/15/23 17:59 Loratadine (Loratadine 10 Mg Tab) 10 mg PO DAILY [facility] Stop: 04/05/23 08:59 Last Admin: 03/08/23 07:47 Dose: 10 mg Miscellaneous Information (Vancomycin Consult Active) 1 each N/A UD PRN PRN Reason: Consult Stop: 04/05/23 16:11 Mycophenolate Mofetil (Mycophenolate Mofetil 250 Mg Cap) 500 mg PO AMHS [facility] Stop: 04/04/23 23:38 Last Admin: 03/08/23 07:45 Dose: 500 mg Oxycodone HCl (Oxycodone Hcl Ir 5 Mg Tab (Immediate Release)) 5 mg PO Q4H PRN PRN Reason: Pain Stop: 03/19/23 23:38 Pantoprazole Sodium (Pantoprazole 40 Mg Tab) 40 mg PO DAILY [facility] Stop: 04/05/23 08:59 Last Admin: 03/08/23 07:47 Dose: 40 mg Petrolatum (Butt Paste (Zinc Oxide 16%) 171 Appln/57 Gm Jar) 1 appln EXT TID [facility] Stop: 04/05/23 13:59 Last Admin: 03/08/23 13:55 Dose: 1 appln Prednisone (Prednisone 5 Mg Tab) 5 mg PO DAILY [facility] Stop: 04/05/23 08:59 Last Admin: 03/08/23 07:46 Dose: 5 mg
[2023-03-08] MEDS: cefTRIAXone SODIUM 1,000 MG in DEXTROSE 5% AD-VAN 50 ML IV SCH (16:55)
[2023-03-08] MEDS: ENOXAPARIN INJ 40 MG/0.4 ML SYR SQ SCH (16:57)
[2023-03-08] MEDS ORDERED: VANCOMYCIN HCL 1,500 MG in SODIUM CHLORIDE 0.9% 500 ML IV SCH (18:00)
[2023-03-08] MEDS: AMITRIPTYLINE HCL 25 MG TAB PO SCH (20:25)
[2023-03-08] MEDS: CIPROFLOXACIN 500 MG TAB PO SCH (20:36)
[2023-03-09 07:38] LABS: Basophils # (auto) 0.02 K/uL (0-0.2); Basophils % (auto) 0.3 %; Eosinophils # (auto) 0.14 K/uL (0-0.50); Eosinophils % (auto) 2.4 %; Hematocrit (blood only) 35.6 % (37.0-47.0); Hemoglobin 10.8 g/dl (12.0-16.0); Immature Granulocytes # (auto) 0.04 K/uL (0.01-0.20); Immature Granulocytes % (auto) 0.7 %; Lymphocytes # (auto) 1.25 K/uL (1.2-3.4); Lymphocytes % (auto) 21.2 %; Mean Corpuscular Hemoglobin 27.3 pg (25.0-34.0); Mean Corpuscular Hgb Conc 30.3 g/dL (32.0-36.0); Mean Corpuscular Volume 89.9 fL (80.0-100.0); Mean Platelet Volume 10.8 fL (9.4-12.4); Monocytes # (auto) 0.49 K/uL (0.11-0.59); Monocytes % (auto) 8.3 %; Neutrophils # (auto) 3.95 K/uL (1.40-6.50); Neutrophils % (auto) 67.1 %; Platelet Count 223 K/uL (130-400); RDW Coefficient of Variation 13.4 % (11.5-14.5); RDW Standard Deviation 43.9 fL (36.4-46.3); Red Blood Count 3.96 M/uL (4.20-5.40); White Blood Count 5.89 K/ul (4.8-10.8)
[2023-03-09 08:10] LABS: Calcium 8.6 mg/dl (8.6-10.3); Creatinine Clr Calc Pharmacy 73.8 ml/min; Est GFR (African American) 101.9 ml/min; Est GFR (Non-African American) 87.9 ml/min; Potassium 3.8 mmol/L (3.5-5.1)
[2023-03-09] MEDS: BUTT PASTE (ZINC OXIDE 16%) 171 APPLN/57 GM JAR EXT SCH ×3 (08:42→20:04)
[2023-03-09] MEDS: busPIRone 5 MG TAB PO SCH ×3 (08:42→20:05)
[2023-03-09] MEDS: PANTOprazole 40 MG TAB PO SCH (08:42)
[2023-03-09] MEDS: LORATADINE 10 MG TAB PO SCH (08:42)
[2023-03-09] MEDS: CITALOPRAM 20 MG TAB PO SCH (08:43)
[2023-03-09] MEDS: FUROSEMIDE 20 MG TAB PO SCH (08:43)
[2023-03-09] MEDS: POTASSIUM CHLORIDE CRTAB 20 MEQ TABCR PO SCH (08:43)
[2023-03-09] MEDS: predniSONE 5 MG TAB PO SCH (08:43)
[2023-03-09] MEDS: MYCOPHENOLATE MOFETIL 250 MG CAP PO SCH ×2 (08:44→20:05)
[2023-03-09] MEDS: FERROUS SULFATE 325 MG TAB PO SCH (08:44)
[2023-03-09] MEDS: CIPROFLOXACIN 500 MG TAB PO SCH ×2 (08:44→20:05)
[2023-03-09] MEDS: CHOLESTYRAMINE LIGHT 4 GM PKT PO SCH (11:26)
[2023-03-09] MEDS: ENOXAPARIN INJ 40 MG/0.4 ML SYR SQ SCH (16:42)
--- NOTE | 2023-03-09 18:02 | Hospitalist Progress Note ---
Date of Service March 09, 2023 Assessment & Plan (1) Vaginal pain: Plan: History of vaginal lesion that was recently biopsied in the outpatient setting and negative for malignancy. Recently on bactrim, however, this was from a superficial wound and likely the bacteria discovered represent stool. Per physical exam findings yesterday the patient is not able to wipe well after a BM and doesn't seem to understand that leaving sstool in this area can make this lesion more irritated. RN and I discussed that she really needs to be checked and wiped followed by zinc oxide paste to lesion after BMs. This is not infected and wound avoid steroid cream in this area Cont barrier cream and followup with [facility] in office for continued workup or to ensure resolution. (2) Immunocompromised state: Plan: h/o of bullous pemphigoid on immunosuppressant medication including CellCept and prednisone. (3) Intellectual delay: Plan: requires a "payee" to help her as well as other caregivers. Placement is planned for social reasons. (4) BP (bullous pemphigoid): Plan: in remission, cont Cellcept (5) Anxiety: Plan: chronic, stable. Cont citalopram per home regimen. Lovenox Full Code Dispo- to assisted living facility when bed available. Stable for discharge from medical standpoint. Jena Gilmore DO [facility] Hospitalist Plan 77yoF with vaginal lesion requiring admission. Outside recent biopsy suggests bullous pemphigoid lesion. Outside recent wound culture growing corynebacterium, enterococcus and E. coli. Worsening vaginal wound History of vaginal ulcer (E.coli, corynebacterium and enterococcus on outpatient wound Cx), on recent Bactrim course Immunocompromised patient. Hx bullous pemphigoid on CellCept, prednisone, and topical tacrolimus in the past. No sepsis, continue with rocephin and Vancomycin for treatment, topical clobetasol for further treatment of bullous lesion. Appreciate [employer] recs Situational hypertension-stable asthma/COPD,requesting inhaler, ordered Rheumatoid arthritis-stable mild cognitive impairment/intellectual disability-stable functional disability- PT OT eval DVT prophylaxis: Lovenox SQ Full code Admission and Anticipated Discharge Date Admission Date: March 05, 2023 Subjective 77 yo F presents for an ongoing vaginal lesion that was burning her. Marimar reports feeling well and denies burning vaginal pain today Per her RN she has already applied the zinc oxide ointment at least twice and this is working well afebrile eating Physical Exam Physical Exam: CONSTITUTIONAL: obese, vitals as above, generally well-appearing, NAD EYES: normal conjunctivae, no scleral icterus ENT: external ear and nose normal, NECK: trachea midline RESPIRATORY: clear to auscultation bilaterally, no crackles, rales or wheezes, normal respiratory effort CARDIOVASCULAR: regular rate and rhythm, S1 and 2 heard without murmurs, gallops or rubs, no JVD, no peripheral edema CHEST: inspection of chest was normal GASTROINTESTINAL: soft, nontender, ND, no guarding MUSCULOSKELETAL: strength 5/5 throughout, head is normocephalic and atraumatic SKIN: warm and dry : patient was in supine position for exam (ELDON grullon). approxima te 4 cm elliptical lesion with defined borders that is on the left perineum extending from the perineum to the rectum this is somewhat irregular with a central reddening of the lesion. There is no bleeding or discharge noted.. She had fecal matter all over it from a poor wiping job previously. While getting cleaned by RN she was clearly grimacing and in pain. Better with application of butt paste. NEUROLOGIC: CN 2-12 grossly intact, no sensory deficit, normal cognition, normal speech, no tremor PSYCHIATRIC: alert cooperative and oriented to person, place and time. Euthymic mood, makes good eye contact, language grossly intact, recent and remote memory grossly intact. Results & Data Results & Data Vital Signs (Past 12 Hours) Vital Signs Temp Pulse Resp BP BP Pulse Ox O2 Del Method 03/09/23 14:35 36.7 C 84 16 139/73 96 Room Air 03/09/23 07:21 36.4 C L 81 18 157/84 H 94 Room Air Laboratory Results Short CBC 03/09/23 Range/Units 07:14 WBC 5.89 (4.8-10.8) K/ul Hgb 10.8 L (12.0-16.0) g/dl Hct 35.6 L (37.0-47.0) % Plt Count 223 (130-400) K/uL BMP 03/09/23 07:14 Sodium 140 Potassium 3.8 Chloride 109 H Carbon Dioxide 25 BUN 12 Creatinine 0.60 Glucose 88 Calcium 8.6 Medications Administered Current Inpatient Medications Acetaminophen (Acetaminophen 325 Mg Tab) 650 mg PO Q4H PRN PRN Reason: Pain or Fever Stop: 04/04/23 23:38 Last Admin: 03/06/23 11:01 Dose: 650 mg Albuterol (Albuterol Hfa 8 Gm Inhaler) 2 puffs INH Q6H PRN PRN Reason: Shortness Of Breath Or Wheezing Stop: 04/05/23 16:14 Amitriptyline HCl (Amitriptyline Hcl 25 Mg Tab) 25 mg PO HS [facility] Stop: 04/04/23 23:38 Last Admin: 03/08/23 20:25 Dose: 25 mg Buspirone HCl (Buspirone 5 Mg Tab) 5 mg PO TID [facility] Stop: 04/04/23 23:38 Last Admin: 03/09/23 13:50 Dose: 5 mg Cholestyramine Resin (Cholestyramine Light 4 Gm Pkt) 4 gm PO DAILY@1100 [facility] Stop: 04/05/23 10:59 Last Admin: 03/09/23 11:26 Dose: 4 gm Ciprofloxacin (Ciprofloxacin 500 Mg Tab) 500 mg PO BID [facility]; Protocol Stop: 03/13/23 20:59 Last Admin: 03/09/23 08:44 Dose: 500 mg Citalopram Hydrobromide (Citalopram 20 Mg Tab) 20 mg PO QAM [facility] Stop: 04/05/23 08:59 Last Admin: 03/09/23 08:43 Dose: 20 mg Enoxaparin Sodium (Enoxaparin Inj 40 Mg/0.4 Ml Syr) 40 mg SQ Q24H [facility] Stop: 04/06/23 16:44 Last Admin: 03/09/23 16:42 Dose: 40 mg Ferrous Sulfate (Ferrous Sulfate 325 Mg Tab) 325 mg PO DAILY [facility] Stop: 04/05/23 08:59 Last Admin: 03/09/23 08:44 Dose: 325 mg Furosemide (Furosemide 20 Mg Tab) 60 mg PO DAILY [facility] Stop: 04/08/23 08:59 Last Admin: 03/09/23 08:43 Dose: 60 mg Promethazine HCl 12.5 mg/ (Sodium Chloride) 50.5 mls @ 202 mls/hr IV Q6H PRN PRN Reason: Nausea And Vomiting Stop: 04/04/23 23:38 Loratadine (Loratadine 10 Mg Tab) 10 mg PO DAILY [facility] Stop: 04/05/23 08:59 Last Admin: 03/09/23 08:42 Dose: 10 mg Mycophenolate Mofetil (Mycophenolate Mofetil 250 Mg Cap) 500 mg PO [facility] Stop: 04/04/23 23:38 Last Admin: 03/09/23 08:44 Dose: 500 mg Oxycodone HCl (Oxycodone Hcl Ir 5 Mg Tab (Immediate Release)) 5 mg PO Q4H PRN PRN Reason: Pain Stop: 03/19/23 23:38 Pantoprazole Sodium (Pantoprazole 40 Mg Tab) 40 mg PO DAILY [facility] Stop: 04/05/23 08:59 Last Admin: 03/09/23 08:42 Dose: 40 mg Petrolatum (Butt Paste (Zinc Oxide 16%) 171 Appln/57 Gm Jar) 1 appln EXT TID [facility] Stop: 04/05/23 13:59 Last Admin: 03/09/23 13:49 Dose: 1 appln Potassium Chloride (Potassium Chloride Crtab 20 Meq Tabcr) 20 meq PO DAILY [facility] Stop: 04/08/23 08:59 Last Admin: 03/09/23 08:43 Dose: 20 meq Prednisone (Prednisone 5 Mg Tab) 5 mg PO DAILY [facility] Stop: 04/05/23 08:59 Last Admin: 03/09/23 08:43 Dose: 5 mg
[2023-03-09] MEDS: AMITRIPTYLINE HCL 25 MG TAB PO SCH (20:05)
[2023-03-10 08:32] LABS: Basophils # (auto) 0.02 K/uL (0-0.2); Basophils % (auto) 0.3 %; Eosinophils # (auto) 0.16 K/uL (0-0.50); Eosinophils % (auto) 2.7 %; Hematocrit (blood only) 36.9 % (37.0-47.0); Hemoglobin 11.2 g/dl (12.0-16.0); Immature Granulocytes # (auto) 0.03 K/uL (0.01-0.20); Immature Granulocytes % (auto) 0.5 %; Lymphocytes # (auto) 1.35 K/uL (1.2-3.4); Lymphocytes % (auto) 22.8 %; Mean Corpuscular Hemoglobin 26.9 pg (25.0-34.0); Mean Corpuscular Hgb Conc 30.4 g/dL (32.0-36.0); Mean Corpuscular Volume 88.7 fL (80.0-100.0); Mean Platelet Volume 10.7 fL (9.4-12.4); Monocytes # (auto) 0.56 K/uL (0.11-0.59); Monocytes % (auto) 9.4 %; Neutrophils # (auto) 3.81 K/uL (1.40-6.50); Neutrophils % (auto) 64.3 %; Platelet Count 231 K/uL (130-400); RDW Coefficient of Variation 13.5 % (11.5-14.5); RDW Standard Deviation 43.8 fL (36.4-46.3); Red Blood Count 4.16 M/uL (4.20-5.40); White Blood Count 5.93 K/ul (4.8-10.8)
[2023-03-10] MEDS: BUTT PASTE (ZINC OXIDE 16%) 171 APPLN/57 GM JAR EXT SCH ×3 (08:36→21:09)
[2023-03-10] MEDS: busPIRone 5 MG TAB PO SCH ×3 (08:37→21:10)
[2023-03-10] MEDS: CIPROFLOXACIN 500 MG TAB PO SCH ×2 (08:37→21:10)
[2023-03-10] MEDS: CITALOPRAM 20 MG TAB PO SCH (08:37)
[2023-03-10] MEDS: MYCOPHENOLATE MOFETIL 250 MG CAP PO SCH ×2 (08:37→21:10)
[2023-03-10] MEDS: predniSONE 5 MG TAB PO SCH (08:37)
[2023-03-10] MEDS: FUROSEMIDE 20 MG TAB PO SCH (08:38)
[2023-03-10] MEDS: PANTOprazole 40 MG TAB PO SCH (08:38)
[2023-03-10] MEDS: FERROUS SULFATE 325 MG TAB PO SCH (08:38)
[2023-03-10] MEDS: POTASSIUM CHLORIDE CRTAB 20 MEQ TABCR PO SCH (08:38)
[2023-03-10] MEDS: LORATADINE 10 MG TAB PO SCH (08:38)
[2023-03-10 09:06] LABS: BUN Creatinine Ratio 23.3 (10-20); Calcium 8.9 mg/dl (8.6-10.3); Creatinine Clr Calc Pharmacy 60.7 ml/min; Est GFR (African American) 92.1 ml/min; Est GFR (Non-African American) 79.4 ml/min; Potassium 3.8 mmol/L (3.5-5.1)
[2023-03-10] MEDS: CHOLESTYRAMINE LIGHT 4 GM PKT PO SCH (11:43)
[2023-03-10] MEDS: ENOXAPARIN INJ 40 MG/0.4 ML SYR SQ SCH (16:34)
--- NOTE | 2023-03-10 17:23 | Hospitalist Progress Note ---
Date of Service March 10, 2023 Assessment & Plan (1) Vaginal pain: (2) Immunocompromised state: (3) Intellectual delay: (4) BP (bullous pemphigoid): (5) Anxiety: Plan 77yoF with vaginal lesion requiring admission. Outside recent biopsy suggests bullous pemphigoid lesion. Outside recent wound culture growing corynebacterium, enterococcus and E. coli. Worsening vaginal wound/Bullous Pemphigoid History of vaginal ulcer (E.coli, corynebacterium and enterococcus on outpatient wound Cx), on recent Bactrim course Immunocompromised patient. Hx bullous pemphigoid on CellCept, prednisone, and topical tacrolimus in the past. No longer on rocephin, Vancomycin, topical clobetasol Continue barrier cream Situational hypertension-stable asthma/COPD,stable Rheumatoid arthritis-stable mild cognitive impairment/intellectual disability-stable functional disability- PT OT eval Mood-stable DVT proph: Lovenox Full Code Dispo- to assisted living facility when bed available. Stable for discharge from medical standpoint. Admission and Anticipated Discharge Date Admission Date: March 05, 2023 Subjective Seen this AM. States she is doing well, no acute concerns. Asking the nurse to help her wipe. Review of Systems Review of Systems: All systems reviewed & are unremarkable except as noted in Subjective Physical Exam Physical Exam: General: Alert. No acute distress, Skin: Noted sloughing of the skin in the vulvar area extending to anus, Psych: Appropriate mood and affect Neuro: No gross deficits, intellectual delay HEENT: NC/AT CV: RRR, Normal s1, s2. No murmurs appreciated Resp: Breath sounds echoing bilaterally, no increased effort of breathing. Abdomen:Soft, nontender, nondistended. No guarding. No organomegaly appreciated. Extremities: No edema in lower extremities bilaterally. Results & Data Results & Data Vital Signs (Past 12 Hours) Vital Signs Temp Pulse Resp BP BP Pulse Ox O2 Del Method 03/10/23 15:04 100/61 03/10/23 14:42 36.4 C L 69 18 109/54 L 97 Room Air 03/10/23 07:32 36.6 C 66 16 119/77 97 Room Air
[2023-03-10] MEDS: AMITRIPTYLINE HCL 25 MG TAB PO SCH (21:10)
[2023-03-11] MEDS: CIPROFLOXACIN 500 MG TAB PO SCH ×2 (09:24→21:10)
[2023-03-11] MEDS: FUROSEMIDE 20 MG TAB PO SCH (09:24)
[2023-03-11] MEDS: PANTOprazole 40 MG TAB PO SCH (09:24)
[2023-03-11] MEDS: predniSONE 5 MG TAB PO SCH (09:24)
[2023-03-11] MEDS: CITALOPRAM 20 MG TAB PO SCH (09:24)
[2023-03-11] MEDS: LORATADINE 10 MG TAB PO SCH (09:24)
[2023-03-11] MEDS: POTASSIUM CHLORIDE CRTAB 20 MEQ TABCR PO SCH (09:25)
[2023-03-11] MEDS: busPIRone 5 MG TAB PO SCH ×3 (09:25→21:09)
[2023-03-11] MEDS: MYCOPHENOLATE MOFETIL 250 MG CAP PO SCH ×2 (09:25→21:10)
[2023-03-11] MEDS: FERROUS SULFATE 325 MG TAB PO SCH (09:25)
[2023-03-11] MEDS: BUTT PASTE (ZINC OXIDE 16%) 171 APPLN/57 GM JAR EXT SCH ×3 (09:26→21:09)
[2023-03-11] MEDS: CHOLESTYRAMINE LIGHT 4 GM PKT PO SCH (12:08)
[2023-03-11] MEDS: ENOXAPARIN INJ 40 MG/0.4 ML SYR SQ SCH (17:48)
--- NOTE | 2023-03-11 20:54 | Hospitalist Progress Note ---
Date of Service March 11, 2023 Assessment & Plan (1) Vaginal pain: (2) Immunocompromised state: (3) Intellectual delay: (4) BP (bullous pemphigoid): (5) Anxiety: Plan 77yoF with Hx of intellectual delay admitted with a currently improving vaginal bullous pemphigoid lesion with past superimposed infection. Awaiting placement. Worsening vaginal wound/Bullous Pemphigoid History of vaginal ulcer (E.coli, corynebacterium and enterococcus on outpatient wound Cx), outpt biopsy suggestive of bullous pemphigoid. Immunocompromised patient. Hx bullous pemphigoid on CellCept, prednisone, and topical tacrolimus in the past. No longer on rocephin, Vancomycin, topical clobetasol Continue barrier cream Awaiting placement. Situational hypertension-stable asthma/COPD,stable Rheumatoid arthritis-stable mild cognitive impairment/intellectual disability-stable functional disability- PT OT eval Mood-stable DVT proph: Lovenox Full Code Dispo- to assisted living facility when bed available. Stable for discharge from medical standpoint. Admission and Anticipated Discharge Date Admission Date: March 05, 2023 Subjective Seen this AM. States she is doing well, no acute concerns. Review of Systems Review of Systems: All systems reviewed & are unremarkable except as noted in Subjective Physical Exam Physical Exam: General: Alert. No acute distress, Skin: Noted improved sloughing of the skin in the vulvar area extending to anus Psych: Appropriate mood and affect Neuro: No gross deficits, intellectual delay HEENT: NC/AT CV: RRR Resp: no increased effort of breathing. Abdomen:Soft, nontender, nondistended. No guarding. No organomegaly appreciated. Extremities: No edema in lower extremities bilaterally. Results & Data Results & Data Vital Signs (Past 12 Hours) Vital Signs Temp Pulse Resp BP Pulse Ox O2 Del Method 03/11/23 15:34 36.6 C 77 16 114/74 97 Room Air
[2023-03-11] MEDS: AMITRIPTYLINE HCL 25 MG TAB PO SCH (21:09)
[2023-03-12] MEDS: FUROSEMIDE 20 MG TAB PO SCH (08:49)
[2023-03-12] MEDS: MYCOPHENOLATE MOFETIL 250 MG CAP PO SCH ×2 (08:49→20:58)
[2023-03-12] MEDS: CITALOPRAM 20 MG TAB PO SCH (08:49)
[2023-03-12] MEDS: PANTOprazole 40 MG TAB PO SCH (08:49)
[2023-03-12] MEDS: predniSONE 5 MG TAB PO SCH (08:49)
[2023-03-12] MEDS: LORATADINE 10 MG TAB PO SCH (08:49)
[2023-03-12] MEDS: FERROUS SULFATE 325 MG TAB PO SCH (08:49)
[2023-03-12] MEDS: POTASSIUM CHLORIDE CRTAB 20 MEQ TABCR PO SCH (08:49)
[2023-03-12] MEDS: CIPROFLOXACIN 500 MG TAB PO SCH ×2 (08:49→20:58)
[2023-03-12] MEDS: BUTT PASTE (ZINC OXIDE 16%) 171 APPLN/57 GM JAR EXT SCH ×3 (08:50→20:57)
[2023-03-12] MEDS: busPIRone 5 MG TAB PO SCH ×3 (08:50→20:58)
[2023-03-12] MEDS: CHOLESTYRAMINE LIGHT 4 GM PKT PO SCH (11:50)
[2023-03-12] MEDS: ENOXAPARIN INJ 40 MG/0.4 ML SYR SQ SCH (16:49)
--- NOTE | 2023-03-12 16:57 | Hospitalist Progress Note ---
Date of Service March 12, 2023 Assessment & Plan (1) Vaginal pain: (2) Immunocompromised state: (3) Intellectual delay: (4) BP (bullous pemphigoid): (5) Anxiety: Plan 77yoF with Hx of intellectual delay admitted with a currently improving vaginal bullous pemphigoid lesion with past superimposed infection. Awaiting placement. Worsening vaginal wound/Bullous Pemphigoid History of vaginal ulcer (E.coli, corynebacterium and enterococcus on outpatient wound Cx), outpt biopsy suggestive of bullous pemphigoid. Immunocompromised patient. Hx bullous pemphigoid on CellCept, prednisone, and topical tacrolimus in the past. No longer on rocephin, Vancomycin, topical clobetasol Continue barrier cream Awaiting placement. Situational hypertension-stable asthma/COPD,stable Rheumatoid arthritis-stable mild cognitive impairment/intellectual disability-stable functional disability- PT OT eval Mood-stable DVT proph: Lovenox Full Code Dispo- to assisted living facility when bed available. Stable for discharge from medical standpoint. I spent a total of 35 minutes coordinating, documenting, and providing care for this patient excluding time spent in the performance of separately billed services. Admission and Anticipated Discharge Date Admission Date: March 05, 2023 Supervising Physician Co-Signing Physician Notes Pt seen and examined by myself, Jena Castanon MD on the day of service. Care was coordinated with Ronel Esteban PA-C. Please refer to her note for additional information. 77yoF with Hx of intellectual disbaility and healing vaginal ulcer in the setting of a Hx of bullous pemphigoid awaiting placement. Otherwise as above. Subjective Seen this AM in follow up for vaginal ulcer. States she is doing well, no longer having vaginal pain, no acute concerns. No F/C, CP, SOB, N/V, abd pain, dysuria, diarrhea or constipation. Review of Systems Review of Systems: At least ten systems reviewed and negative except as noted in the HPI. Physical Exam Physical Exam: Gen: WD/WN, NAD, sitting in bedside chair, A&Ox3 HEENT: Normocephalic, atraumatic, conjunctivae moist, sclerae anicteric, mucous membranes moist Lung: Clear to Auscultation bilaterally, no wheezes/rales/rhonchi Heart: Regular rate, regular rhythm, no murmurs, rubs, or gallops Abdomen: Soft, NT, ND +BS x 4 : Patient moved to supine position- healing lesion on medial aspect of labia with central erythema but no drainage, non-tender Extremities: no edema Skin: Warm, no rash Results & Data Results & Data Vital Signs (Past 12 Hours) Vital Signs Temp Pulse Resp BP Pulse Ox O2 Del Method 03/12/23 14:41 36.5 C 73 17 108/65 94 Room Air 03/12/23 07:00 Room Air 03/12/23 07:35 36.5 C 67 17 119/70 97 Room Air
[2023-03-12] MEDS: AMITRIPTYLINE HCL 25 MG TAB PO SCH (20:58)
[2023-03-13 07:35] LABS: Hematocrit (blood only) 37.3 % (37.0-47.0); Hemoglobin 11.5 g/dl (12.0-16.0); Mean Corpuscular Hemoglobin 27.3 pg (25.0-34.0); Mean Corpuscular Hgb Conc 30.8 g/dL (32.0-36.0); Mean Corpuscular Volume 88.4 fL (80.0-100.0); Mean Platelet Volume 10.6 fL (9.4-12.4); Platelet Count 220 K/uL (130-400); RDW Coefficient of Variation 13.5 % (11.5-14.5); RDW Standard Deviation 43.5 fL (36.4-46.3); Red Blood Count 4.22 M/uL (4.20-5.40); White Blood Count 6.63 K/ul (4.8-10.8)
--- NOTE | 2023-03-13 09:29 | Hospitalist Progress Note ---
Date of Service March 13, 2023 Assessment & Plan (1) Vaginal pain: (2) Immunocompromised state: (3) Intellectual delay: (4) BP (bullous pemphigoid): (5) Anxiety: Plan 77yoF with Hx of intellectual delay admitted with a currently improving vaginal bullous pemphigoid lesion with past superimposed infection. Awaiting placement. Worsening vaginal wound/Bullous Pemphigoid History of vaginal ulcer (E.coli, corynebacterium and enterococcus on outpatient wound Cx), outpt biopsy suggestive of bullous pemphigoid. Immunocompromised patient. Hx bullous pemphigoid on CellCept, prednisone, and topical tacrolimus in the past. Area in question was biopsied as outpatient with no evidence of malignancy and is now resolved. Continue barrier cream for now. Awaiting placement. Situational hypertension-BP at goal, cont current treatment asthma/COPD,stable Rheumatoid arthritis-stable mild cognitive impairment/intellectual disability-stable, she is in good sp irits and demonstrates that she understands what is going on with her medical care and her living situation. functional disability- to assisted living. Mood-stable DVT proph: Lovenox Full Code Dispo- to assisted living facility when bed available. Stable for discharge from medical standpoint. I spent a total of60 minutes coordinating, documenting, and providing care for this patient excluding time spent in the performance of separately billed services Jena Gilmore DO [facility] Hospitalist Admission and Anticipated Discharge Date Admission Date: March 05, 2023 Subjective 77 yo F presents for an ongoing vaginal lesion that was burning her. Marimar reports feeling well and denies burning vaginal pain today Exam reveals this has all cleared up. I contacted her rep Jena and spoke with her for about 30 minutes I conveyed that Marimar had expressed she wanted to return home and her lesion was all cleared up. She explained to me that she was unable to get any home health agencies to support her in the home yet. For now we both decided that proceeding to DNF temporarily would be the best option because the absolutely best option of getting her into a long term was not available at this time. Review of Systems Review of Systems: At least ten systems reviewed and negative except as noted in the HPI. Physical Exam Physical Exam: CONSTITUTIONAL: obese, vitals as above, generally well-appearing, NAD. She is in great spirits today EYES: normal conjunctivae, no scleral icterus ENT: external ear and nose normal, NECK: trachea midline RESPIRATORY: clear to auscultation bilaterally, no crackles, rales or wheezes, normal respiratory effort CARDIOVASCULAR: regular rate and rhythm, S1 and 2 heard without murmurs, gallops or rubs, no JVD, no peripheral edema CHEST: inspection of chest was normal GASTROINTESTINAL: soft, nontender, ND, no guarding MUSCULOSKELETAL: strength 5/5 throughout, head is normocephalic and atraumatic SKIN: warm and dry : patient was in supine position for exam (ELDON grullon). Vaginal erythematous lesion has cleared up. NEUROLOGIC: CN 2-12 grossly intact, no sensory deficit, normal cognition, normal speech, no tremor PSYCHIATRIC: alert cooperative and oriented to person, place and time. Euthymic mood, makes good eye contact, language grossly intact, recent and remote memory grossly intact. Results & Data Results & Data Vital Signs (Past 12 Hours) Vital Signs Temp Pulse Resp BP BP Pulse Ox O2 Del Method 03/13/23 07:16 36.5 C 67 17 97/67 L 95 Room Air 03/12/23 22:04 36.6 C 67 16 136/85 94 Room Air Laboratory Results Short CBC 03/13/23 Range/Units 06:56 WBC 6.63 (4.8-10.8) K/ul Hgb 11.5 L (12.0-16.0) g/dl Hct 37.3 (37.0-47.0) % Plt Count 220 (130-400) K/uL Medications Administered Current Inpatient Medications Acetaminophen (Acetaminophen 325 Mg Tab) 650 mg PO Q4H PRN PRN Reason: Pain or Fever Stop: 04/04/23 23:38 Last Admin: 03/06/23 11:01 Dose: 650 mg Albuterol (Albuterol Hfa 8 Gm Inhaler) 2 puffs INH Q6H PRN PRN Reason: Shortness Of Breath Or Wheezing Stop: 04/05/23 16:14 Amitriptyline HCl (Amitriptyline Hcl 25 Mg Tab) 25 mg PO HS [facility] Stop: 04/04/23 23:38 Last Admin: 03/12/23 20:58 Dose: 25 mg Buspirone HCl (Buspirone 5 Mg Tab) 5 mg PO TID [facility] Stop: 04/04/23 23:38 Last Admin: 03/12/23 20:58 Dose: 5 mg Cholestyramine Resin (Cholestyramine Light 4 Gm Pkt) 4 gm PO DAILY@1100 [facility] Stop: 04/05/23 10:59 Last Admin: 03/12/23 11:50 Dose: 4 gm Ciprofloxacin (Ciprofloxacin 500 Mg Tab) 500 mg PO BID [facility]; Protocol Stop: 03/13/23 20:59 Last Admin: 03/12/23 20:58 Dose: 500 mg Citalopram Hydrobromide (Citalopram 20 Mg Tab) 20 mg PO QAM [facility] Stop: 04/05/23 08:59 Last Admin: 03/12/23 08:49 Dose: 20 mg Enoxaparin Sodium (Enoxaparin Inj 40 Mg/0.4 Ml Syr) 40 mg SQ Q24H [facility] Stop: 04/06/23 16:44 Last Admin: 03/12/23 16:49 Dose: 40 mg Ferrous Sulfate (Ferrous Sulfate 325 Mg Tab) 325 mg PO DAILY [facility] Stop: 04/05/23 08:59 Last Admin: 03/12/23 08:49 Dose: 325 mg Furosemide (Furosemide 20 Mg Tab) 60 mg PO DAILY [facility] Stop: 04/08/23 08:59 Last Admin: 03/12/23 08:49 Dose: 60 mg Promethazine HCl 12.5 mg/ (Sodium Chloride) 50.5 mls @ 202 mls/hr IV Q6H PRN PRN Reason: Nausea And Vomiting Stop: 04/04/23 23:38 Loratadine (Loratadine 10 Mg Tab) 10 mg PO DAILY [facility] Stop: 04/05/23 08:59 Last Admin: 03/12/23 08:49 Dose: 10 mg Mycophenolate Mofetil (Mycophenolate Mofetil 250 Mg Cap) 500 mg PO AMHS [facility] Stop: 04/04/23 23:38 Last Admin: 03/12/23 20:58 Dose: 500 mg Oxycodone HCl (Oxycodone Hcl Ir 5 Mg Tab (Immediate Release)) 5 mg PO Q4H PRN PRN Reason: Pain Stop: 03/19/23 23:38 Pantoprazole Sodium (Pantoprazole 40 Mg Tab) 40 mg PO DAILY [facility] Stop: 04/05/23 08:59 Last Admin: 03/12/23 08:49 Dose: 40 mg Petrolatum (Butt Paste (Zinc Oxide 16%) 171 Appln/57 Gm Jar) 1 appln EXT TID [facility] Stop: 04/05/23 13:59 Last Admin: 03/12/23 20:57 Dose: 1 appln Potassium Chloride (Potassium Chloride Crtab 20 Meq Tabcr) 20 meq PO DAILY [facility] Stop: 04/08/23 08:59 Last Admin: 03/12/23 08:49 Dose: 20 meq Prednisone (Prednisone 5 Mg Tab) 5 mg PO DAILY [facility] Stop: 04/05/23 08:59 Last Admin: 03/12/23 08:49 Dose: 5 mg
[2023-03-13] MEDS: BUTT PASTE (ZINC OXIDE 16%) 171 APPLN/57 GM JAR EXT SCH ×3 (09:31→20:53)
[2023-03-13] MEDS: CHOLESTYRAMINE LIGHT 4 GM PKT PO SCH (09:36)
[2023-03-13] MEDS: POTASSIUM CHLORIDE CRTAB 20 MEQ TABCR PO SCH (09:37)
[2023-03-13] MEDS: LORATADINE 10 MG TAB PO SCH (09:37)
[2023-03-13] MEDS: CIPROFLOXACIN 500 MG TAB PO SCH (09:37)
[2023-03-13] MEDS: PANTOprazole 40 MG TAB PO SCH (09:37)
[2023-03-13] MEDS: FUROSEMIDE 20 MG TAB PO SCH (09:37)
[2023-03-13] MEDS: FERROUS SULFATE 325 MG TAB PO SCH (09:37)
[2023-03-13] MEDS: predniSONE 5 MG TAB PO SCH (09:37)
[2023-03-13] MEDS: busPIRone 5 MG TAB PO SCH ×3 (09:37→20:52)
[2023-03-13] MEDS: MYCOPHENOLATE MOFETIL 250 MG CAP PO SCH ×2 (09:37→20:53)
[2023-03-13] MEDS: CITALOPRAM 20 MG TAB PO SCH (09:37)
[2023-03-13 09:42] LABS: BUN Creatinine Ratio 24.7 (10-20); Calcium 9.2 mg/dl (8.6-10.3); Creatinine Clr Calc Pharmacy 60.7 ml/min; Est GFR (African American) 92.1 ml/min; Est GFR (Non-African American) 79.4 ml/min; Potassium 3.9 mmol/L (3.5-5.1)
[2023-03-13] MEDS: ENOXAPARIN INJ 40 MG/0.4 ML SYR SQ SCH (15:28)
[2023-03-13] MEDS: AMITRIPTYLINE HCL 25 MG TAB PO SCH (20:53)
[2023-03-14 07:34] LABS: Hematocrit (blood only) 35.8 % (37.0-47.0); Mean Corpuscular Hemoglobin 27.2 pg (25.0-34.0); Mean Corpuscular Hgb Conc 30.7 g/dL (32.0-36.0); Mean Corpuscular Volume 88.4 fL (80.0-100.0); Mean Platelet Volume 10.3 fL (9.4-12.4); Platelet Count 240 K/uL (130-400); RDW Coefficient of Variation 13.8 % (11.5-14.5); RDW Standard Deviation 44.4 fL (36.4-46.3); Red Blood Count 4.05 M/uL (4.20-5.40); White Blood Count 6.68 K/ul (4.8-10.8)
[2023-03-14 07:57] LABS: BUN Creatinine Ratio 23.9 (10-20); Calcium 9.1 mg/dl (8.6-10.3); Creatinine Clr Calc Pharmacy 66.1 ml/min; Est GFR (African American) 98.3 ml/min; Est GFR (Non-African American) 84.8 ml/min
--- NOTE | 2023-03-14 08:19 | Hospitalist Progress Note ---
Date of Service March 14, 2023 Assessment & Plan (1) Vaginal pain: (2) Immunocompromised state: (3) Intellectual delay: (4) BP (bullous pemphigoid): (5) Anxiety: Plan 77yoF with Hx of intellectual delay admitted with a currently improving vaginal bullous pemphigoid lesion with past superimposed infection. Awaiting placement. Worsening vaginal wound/Bullous Pemphigoid History of vaginal ulcer (E.coli, corynebacterium and enterococcus on outpatient wound Cx), outpt biopsy suggestive of bullous pemphigoid. Immunocompromised patient. Hx bullous pemphigoid on CellCept, prednisone, and topical tacrolimus in the past. Area in question was biopsied as outpatient with no evidence of malignancy and is now resolved. Continue barrier cream for now PRN Awaiting placement. Situational hypertension-BP at goal, cont current treatment asthma/COPD,stable Rheumatoid arthritis-stable mild cognitive impairment/intellectual disability-stable, she is in good spirits and demonstrates that she understands what is going on with her medical care and her living situation. functional disability- to assisted living. Mood-stable DVT proph: Lovenox Full Code Dispo- to assisted living facility when bed available. Stable for discharge from medical standpoint. I spent a total of60 minutes coordinating, documenting, and providing care for this patient excluding time spent in the performance of separately billed services Jena Gilmore DO [facility] Hospitalist Admission and Anticipated Discharge Date Admission Date: March 05, 2023 Subjective 77 yo F presents for an ongoing vaginal lesion that was burning her. No issues today awaiting placement tolerating PO no vaginal discomfort. Physical Exam Physical Exam: CONSTITUTIONAL: obese, vitals as above, generally well-appearing, NAD. EYES: normal conjunctivae, no scleral icterus ENT: external ear and nose normal, NECK: trachea midline RESPIRATORY: clear to auscultation bilaterally, no crackles, rales or wheezes, normal respiratory effort CARDIOVASCULAR: regular rate and rhythm, S1 and 2 heard without murmurs, bragg ps or rubs, no JVD, no peripheral edema CHEST: inspection of chest was normal GASTROINTESTINAL: soft, nontender, ND, no guarding MUSCULOSKELETAL: strength 5/5 throughout, head is normocephalic and atraumatic SKIN: warm and dry NEUROLOGIC: CN 2-12 grossly intact, no sensory deficit, normal cognition, normal speech, no tremor PSYCHIATRIC: alert cooperative and oriented to person, place and time. Euthymic mood, makes good eye contact, language grossly intact, recent and remote memory grossly intact. Results & Data Results & Data Vital Signs (Past 12 Hours) Vital Signs Temp Pulse Resp BP Pulse Ox O2 Del Method 03/14/23 07:14 36.7 C 67 16 120/72 94 Room Air 03/13/23 22:36 36.6 C 71 16 137/79 96 Room Air Laboratory Results Short CBC 03/14/23 Range/Units 07:22 WBC 6.68 (4.8-10.8) K/ul Hgb 11.0 L (12.0-16.0) g/dl Hct 35.8 L (37.0-47.0) % Plt Count 240 (130-400) K/uL BMP 03/13/23 03/14/23 06:56 07:22 Sodium 139 139 Potassium 3.9 4.0 Chloride 104 105 Carbon Dioxide 30 30 BUN 18 16 Creatinine 0.73 0.67 Glucose 84 88 Calcium 9.2 9.1 Medications Administered Current Inpatient Medications Acetaminophen (Acetaminophen 325 Mg Tab) 650 mg PO Q4H PRN PRN Reason: Pain or Fever Stop: 04/04/23 23:38 Last Admin: 03/06/23 11:01 Dose: 650 mg Albuterol (Albuterol Hfa 8 Gm Inhaler) 2 puffs INH Q6H PRN PRN Reason: Shortness Of Breath Or Wheezing Stop: 04/05/23 16:14 Amitriptyline HCl (Amitriptyline Hcl 25 Mg Tab) 25 mg PO HS [facility] Stop: 04/04/23 23:38 Last Admin: 03/13/23 20:53 Dose: 25 mg Buspirone HCl (Buspirone 5 Mg Tab) 5 mg PO TID [facility] Stop: 04/04/23 23:38 Last Admin: 03/13/23 20:52 Dose: 5 mg Cholestyramine Resin (Cholestyramine Light 4 Gm Pkt) 4 gm PO DAILY@1100 [facility] Stop: 04/05/23 10:59 Last Admin: 03/13/23 09:36 Dose: 4 gm Citalopram Hydrobromide (Citalopram 20 Mg Tab) 20 mg PO QAM [facility] Stop: 04/05/23 08:59 Last Admin: 03/13/23 09:37 Dose: 20 mg Enoxaparin Sodium (Enoxaparin Inj 40 Mg/0.4 Ml Syr) 40 mg SQ Q24H [facility] Stop: 04/06/23 16:44 Last Admin: 03/13/23 15:28 Dose: 40 mg Ferrous Sulfate (Ferrous Sulfate 325 Mg Tab) 325 mg PO DAILY [facility] Stop: 04/05/23 08:59 Last Admin: 03/13/23 09:37 Dose: 325 mg Furosemide (Furosemide 20 Mg Tab) 60 mg PO DAILY [facility] Stop: 04/08/23 08:59 Last Admin: 03/13/23 09:37 Dose: 60 mg Promethazine HCl 12.5 mg/ (Sodium Chloride) 50.5 mls @ 202 mls/hr IV Q6H PRN PRN Reason: Nausea And Vomiting Stop: 04/04/23 23:38 Loratadine (Loratadine 10 Mg Tab) 10 mg PO DAILY [facility] Stop: 04/05/23 08:59 Last Admin: 03/13/23 09:37 Dose: 10 mg Mycophenolate Mofetil (Mycophenolate Mofetil 250 Mg Cap) 500 mg PO AMHS [facility] Stop: 04/04/23 23:38 Last Admin: 03/13/23 20:53 Dose: 500 mg Oxycodone HCl (Oxycodone Hcl Ir 5 Mg Tab (Immediate Release)) 5 mg PO Q4H PRN PRN Reason: Pain Stop: 03/19/23 23:38 Pantoprazole Sodium (Pantoprazole 40 Mg Tab) 40 mg PO DAILY [facility] Stop: 04/05/23 08:59 Last Admin: 03/13/23 09:37 Dose: 40 mg Petrolatum (Butt Paste (Zinc Oxide 16%) 171 Appln/57 Gm Jar) 1 appln EXT TID [facility] Stop: 04/05/23 13:59 Last Admin: 03/13/23 20:53 Dose: 1 appln Potassium Chloride (Potassium Chloride Crtab 20 Meq Tabcr) 20 meq PO DAILY [facility] Stop: 04/08/23 08:59 Last Admin: 03/13/23 09:37 Dose: 20 meq Prednisone (Prednisone 5 Mg Tab) 5 mg PO DAILY [facility] Stop: 04/05/23 08:59 Last Admin: 03/13/23 09:37 Dose: 5 mg
[2023-03-14] MEDS: BUTT PASTE (ZINC OXIDE 16%) 171 APPLN/57 GM JAR EXT SCH (08:32)
[2023-03-14] MEDS: MYCOPHENOLATE MOFETIL 250 MG CAP PO SCH ×2 (08:32→20:14)
[2023-03-14] MEDS: LORATADINE 10 MG TAB PO SCH (08:32)
[2023-03-14] MEDS: FERROUS SULFATE 325 MG TAB PO SCH (08:32)
[2023-03-14] MEDS: PANTOprazole 40 MG TAB PO SCH (08:32)
[2023-03-14] MEDS: busPIRone 5 MG TAB PO SCH ×3 (08:32→20:14)
[2023-03-14] MEDS: predniSONE 5 MG TAB PO SCH (08:33)
[2023-03-14] MEDS: FUROSEMIDE 20 MG TAB PO SCH (08:33)
[2023-03-14] MEDS: CITALOPRAM 20 MG TAB PO SCH (08:33)
[2023-03-14] MEDS: POTASSIUM CHLORIDE CRTAB 20 MEQ TABCR PO SCH (08:33)
[2023-03-14] MEDS: ACETAMINOPHEN 325 MG TAB PO PRN (08:34)
[2023-03-14] MEDS ORDERED: BUTT PASTE (ZINC OXIDE 16%) 171 APPLN/57 GM JAR EXT PRN (11:30)
[2023-03-14] MEDS: ENOXAPARIN INJ 40 MG/0.4 ML SYR SQ SCH (15:39)
[2023-03-14] MEDS: AMITRIPTYLINE HCL 25 MG TAB PO SCH (20:15)
[2023-03-15] MEDS: MYCOPHENOLATE MOFETIL 250 MG CAP PO SCH (08:49)
[2023-03-15] MEDS: busPIRone 5 MG TAB PO SCH ×2 (08:49→13:43)
[2023-03-15] MEDS: predniSONE 5 MG TAB PO SCH (08:49)
[2023-03-15] MEDS: CITALOPRAM 20 MG TAB PO SCH (08:49)
[2023-03-15] MEDS: PANTOprazole 40 MG TAB PO SCH (08:49)
[2023-03-15] MEDS: FERROUS SULFATE 325 MG TAB PO SCH (08:50)
[2023-03-15] MEDS: LORATADINE 10 MG TAB PO SCH (08:50)
[2023-03-15] MEDS: FUROSEMIDE 20 MG TAB PO SCH (08:50)
[2023-03-15] MEDS: POTASSIUM CHLORIDE CRTAB 20 MEQ TABCR PO SCH (08:50)
--- NOTE | 2023-03-15 15:31 | Discharge Summary ---
Date of Service March 15, 2023 Admission HPI Per Admitting Provider History obtained from patient, friend, and records. Medical history significant for asthma/COPD, bullous pemphigoid on currently on CellCept, steroid, and topical tacrolimus, GERD, mild cognitive impairment/intellectual disability as per records, rheumatoid arthritis as per records, vaginal ulcer ongoing Bactrim Rx, anxiety/mood disorder. Last confinement March 2021 for perineal ulcerations, intertriginous candidi asis and situational hypertension. Gynecology recommended topical steroid on vulvar lesion. Patient temporarily stayed at [facility] from October to January 2023 because patient's home had to be decontaminated from bedbug infestation. Patient noted to have a vaginal sore last month at the detention. Sore did not improve with antifungal Rx. Patient complained of worsening vaginal pain when she returned home 2 weeks ago. Vaginal ulcer with purulent drainage noted by friend. Patient seen at [facility] outpatient about 10 days ago. Atrophic vagina with large ulcer noted in the left labia majora extending to the perineum. Vulvar biopsy done later showed bullous pemphigoid. Vaginosis panel was negative. Pansensitive E. coli growth from wound cultures. Patient prescribed Bactrim course. Worsening lesion size and pain with new bumps noted in patient's groin area. No fever, no chills. No headache. No chest pain, no SOB. Patient friend has concerns about patient's ability to be by herself at home. Caregivers limited in what they can do for patient as per patient's friend. Patient brought to the ER for evaluation. Vancomycin and cefepime administered at the ER. Medical Historyas above Surgical History : Breast biopsy, cholecystostomy Family History : Heart disease Personal/Social history : Past tobacco abuse, no EtOH intake, retired from factory work, lives by herself Admission Exam Per Admitting Provider GENERAL: Comfortable, pleasant, obese, slightly anxious, no respiratory distress SKIN: Normal color, warm HEENT: Bespectacled, [place] palpebral conjunctivae, no ptosis, moist buccal mucosa NECK : Supple, short neck, no tenderness CHEST : CTA, no tenderness HEART : RRR, no obvious murmurs ABDOMEN: Some distention, nontender : Tender ulceration left labia, minimal tenderness EXTREMITIES : Minimal LE swelling, no LE tenderness, no other conspicuous deformities noted NEUROLOGIC : Coherent, no facial asymmetry, no other gross focality Principal Diagnosis Vaginal Wound Discharge Exam Constitutional WD/WN, vitals as above Respiratory normal respiratory effort, lungs clear to auscultation Cardiovascular Rate/Rhythm: regular rate and regular rhythm Vessels: normal peripheral pulses Extremities: no edema Gastrointestinal (Abdomen) Percussion/Palpation: abdomen soft; abdomen nontender Musculoskeletal no cyanosis or clubbing, extremities motor strength 5/5 Skin no rashes, warm and dry Neurologic no focal motor deficits Psychiatric Orientation: alert and oriented x 3 (unaware of year but able to state month and day of week) Insight: + limited insight Discharge Data Allergies Allergy/AdvReac Type Severity Reaction Status Date / Time fluconazole Allergy Intermediate Rash Verified 03/05/23 19:11 adhesive tape Allergy Mild skin Verified 03/05/23 19:11 irritation Penicillins Allergy Unknown Unknown Verified 03/05/23 19:11 Consultations 03/05/23 20:57 Consult Obstetrics Routine Ordered Studies Laboratory Results WBC 6.68 K/ul (4.8-10.8) 03/14/23 07: RBC 4.05 M/uL (4.20-5.40) L 03/14/23 07:22 Hgb 11.0 g/dl (12.0-16.0) L 03/14/23 07: Hct 35.8 % (37.0-47.0) L 03/14/23 07: MCV 88.4 fL (80.0-100.0) 03/14/23 07:22 MCH 27.2 pg (25.0-34.0) 03/14/23 07: MCHC 30.7 g/dL (32.0-36.0) L 03/14/23 07:22 RDW Std Deviation 44.4 fL (36.4-46.3) 03/14/23 07: RDW Coeff of Yaritza 13.8 % (11.5-14.5) 03/14/23 07: Plt Count 240 K/uL (130-400) 03/14/23 07:22 MPV 10.3 fL (9.4-12.4) 03/14/23 07:22 Immature Gran % (Auto) 0.5 % 03/10/23 07:45 Neut % (Auto) 64.3 % 03/10/23 07:45 Lymph % (Auto) 22.8 % 03/10/23 07:45 Glynn % (Auto) 9.4 % 03/10/23 07:45 Eos % (Auto) 2.7 % 03/10/23 07:45 Baso % (Auto) 0.3 % 03/10/23 07:45 Neut # (Auto) 3.81 K/uL (1.40-6.50) 03/10/23 07:45 Lymph # (Auto) 1.35 K/uL (1.2-3.4) 03/10/23 07:45 Glynn # (Auto) 0.56 K/uL (0.11-0.59) 03/10/23 07:45 Eos # (Auto) 0.16 K/uL (0-0.50) 03/10/23 07:45 Baso # (Auto) 0.02 K/uL (0-0.2) 03/10/23 07:45 Immature Gran # (Auto) 0.03 K/uL (0.01-0.20) 03/10/23 07:45 Sodium 139 mmol/L (136-145) 03/14/23 07:22 Potassium 4.0 mmol/L (3.5-5.1) 03/14/23 07:22 Chloride 105 mmol/L (98-107) 03/14/23 07:22 Carbon Dioxide 30 mmol/L (21-32) 03/14/23 07:22 Anion Gap 4 (3-11) 03/14/23 07:22 BUN 16 mg/dl (6-23) 03/14/23 07:22 Creatinine 0.67 mg/dl (0.6-1.2) 03/14/23 07:22 Est Cr Clr Drug Dosing 66.1 ml/min 03/14/23 07:22 Est GFR ( Amer) 98.3 ml/min 03/14/23 07:22 Est GFR (Non-Af Amer) 84.8 ml/min 03/14/23 07:22 BUN/Creatinine Ratio 23.9 (10-20) H 03/14/23 07:22 Glucose 88 mg/dl (70-99(Fasting)) 03/14/23 07:22 Estimat Average Glucose 103 mg/dl 03/05/23 16:50 Hemoglobin A1c 5.2 % (4.5-5.6) 03/05/23 16:50 Lactate 1.3 mmol/L (0.4-2.0) 03/05/23 16:50 Calcium 9.1 mg/dl (8.6-10.3) 03/14/23 07:22 Magnesium 1.8 mg/dl (1.7-2.4) 03/05/23 16:50 Total Bilirubin 0.3 mg/dl (0.2-1.0) 03/05/23 16:50 Direct Bilirubin 0.0 mg/dl (0-0.2) 03/05/23 16:50 AST 17 U/L (13-39) 03/05/23 16:50 ALT 9 U/L (7-52) 03/05/23 16:50 Alkaline Phosphatase 50 U/L (34-104) 03/05/23 16:50 Troponin I High Sens 10.1 pg/ml (0-14) 03/05/23 16:50 Total Protein 6.9 gm/dl (6.0-8.3) 03/05/23 16:50 Albumin 4.0 gm/dl (3.4-5.0) 03/05/23 16:50 Procalcitonin 0.05 ng/ml (0-0.5) 03/05/23 16:50 Urine Color Yellow 03/05/23 18:34 Urine Appearance Turbid (Clear) A 03/05/23 18:34 Urine pH 5.5 (4.5-7.5) 03/05/23 18:34 Ur Specific [place] 1.015 (1.000-1.030) 03/05/23 18:34 Urine Protein 2+ (Negative) H 03/05/23 18:34 Urine Glucose (UA) Negative (Negative) 03/05/23 18:34 Urine Ketones Negative (Negative) 03/05/23 18:34 Urine Blood 2+ (Negative) H 03/05/23 18:34 Urine Nitrite Negative (Negative) 03/05/23 18:34 Urine Bilirubin Negative (Negative) 03/05/23 18:34 Urine Urobilinogen Negative (Negative) 03/05/23 18:34 Ur Leukocyte Esterase 3+ (Negative) H 03/05/23 18:34 Urine RBC 10-30 /hpf (0-4) H 03/05/23 18:34 Urine WBC >30 /hpf (0-5) H 03/05/23 18:34 Ur Epithelial Cells >30 /lpf (0-5) H 03/05/23 18:34 Urine Bacteria 3+ (Negative) H 03/05/23 18:34 Random Vancomycin 26.9 mcg/ml (10-20) H* 03/07/23 05:40 SARS-CoV-2, RNA, NAAT NEGATIVE (NEGATIVE) 03/05/23 Unknown Impressions Abdomen/Pelvis CT 03/05/23 16:34 CT abd pelvis IV con only CLINICAL HISTORY: vag lesion, poss abscess or mass, pain TECHNIQUE: Helical axial images of the abdomen and pelvis were obtained and displayed. Automated dose lowering techniques and/or adjustment according to patient size were utilized for this exam. This exam was performed with intravenous contrast. CT DOSE: 1429.15 mGy.cm COMPARISON: Comparison is made to CT pelvis 04/11/2021 FINDINGS: Lower chest: Bibasilar atelectasis versus scarring is seen. Liver: Hepatic calcifications are seen. Gallbladder and biliary tree: Patient is status post cholecystectomy. No intra- or extrahepatic biliary ductal dilation. Pancreas: Fatty replacement of the pancreas is seen. Spleen: Splenule is incidentally noted. Adrenals: Unremarkable. Kidneys and ureters: Subcentimeter hypodensities are too small to characterize. Bladder: Unremarkable. Reproductive organs: Patient is status post hysterectomy. No vaginal abscess is seen. Bowel: Diverticulosis is seen without evidence of diverticulitis. A hiatal her dirk is seen. Lymph nodes Retroperitoneal: Unremarkable. Pelvic: Unremarkable. Mesenteric: Unremarkable. Peritoneum: Normal. Vessels: Atherosclerotic calcifications are seen. Abdominal wall: A fat-containing umbilical hernia is seen. There is a fat- containing right inguinal hernia. Bones: There is an age-indeterminate fracture of the right lateral eighth rib, favored to be chronic. Degenerative changes are seen in the spine. IMPRESSION: 1. No acute abnormalities are seen below the diaphragm, in particular no vaginal abscess seen. 2. Age-indeterminate, likely chronic right eighth rib fracture. ACT 112: Negative or not required by law. Electronically signed by: Roman Metzger M.D. 03/05/2023 7:08 PM Chest X-Ray 03/05/23 16:34 XR chest 1V portable CLINICAL HISTORY: Sepsis TECHNIQUE: Single frontal radiograph of the chest was obtained. Comparison: Comparison is made to chest radiograph 10/24/2022 FINDINGS: Exam is limited by underpenetration. The cardiomediastinal silhouette is normal. The lungs are clear. No evidence of pleural effusion or pneumothorax. IMPRESSION: No acute abnormalities and in particular no radiographic evidence of pneumonia. ACT 112: Negative or not required by law. Electronically signed by: Roman Metzger M.D. 03/05/2023 4:55 PM Hospital Course (1) Vaginal pain: (2) Immunocompromised state: (3) Intellectual delay: (4) BP (bullous pemphigoid): (5) Anxiety: (6) UTI (urinary tract infection): Plan 77yoF with Hx of intellectual delay admitted with a vaginal bullous pemphigoid lesion with past superimposed infection. Worsening vaginal wound/Bullous Pemphigoid History of vaginal ulcer (E.coli, corynebacterium and enterococcus on outpatient wound Cx), outpt biopsy suggestive of bullous pemphigoid. Was receiving Bactrim prior to hospitalization. Immunocompromised patient. Hx bullous pemphigoid on CellCept, prednisone, and topical tacrolimus in the past. Received IV antibiotics which have since been discontinued. Area in question was biopsied as outpatient with no evidence of malignancy and is now resolved. Continue barrier cream for now PRN UTI Urine culture grew Enterococcus, resistant to tetracycline. Completed antibiotic course while hospitalized. Situational hypertension- BP at goal, continue furosemide asthma/COPD -stable, no signs of acute exacerbation Rheumatoid arthritis-stable mild cognitive impairment/intellectual disability-stable, continue home meds Total Time Total Time Spent Total Time Spent (In Minutes): 35 Discharge Plan Discharge Items Patient Disposition: Transfer [facility] Fac Reason For Visit: Vaginal Pain/Ulcer Discharge Diagnosis: Vaginal Wound Condition on Discharge: Good Activity: Resume your previous activity Non-emergency contact: Primary Care Provider Call non-emergency contact if: you have any medication questions, your symptoms worsen, your pain is not controlled and you have a fever Follow-up/Referrals: Usha Mccrary DO [Primary Care Provider] - Diet: Heart Healthy Addtl Attending Provider Instructions: Patient presented with worsening vaginal pain and wound with underlying history of bullous pemphigoid. Underwent recent biopsy that was negative for malignancy. Received IV Rocephin, vancomycin, topical clobetasol which has since been discontinued. Evaluated by SHADE BANDER who recommended barrier cream PRN and good hygiene. Found to have Enterococcus UTI for which she completed antibiotic course. Pending Studies at Discharge: No Stand-Alone Forms: [facility] Skilled Items Patient informed of condition?: Yes DNR: No Discharge Level of Care: Skilled Communicable Disease: No Discharge Prognosis: Stable Lines: None Urinary Catheter: No Medications and DC Order Prescriptions: New Boudsuzys Butt Paste 16 % Ointment 1 applic EXT TID PRN (Reason: skin irritation) Qty: 113 0RF Continued furosemide 40 mg tablet 60 mg PO DAILY Rx Instructions: take 1 & 1/2 tab buspirone 5 mg tablet 5 mg PO TID mycophenolate mofetil 500 mg tablet 500 mg PO AMHS citalopram [Celexa] 20 mg Tablet 20 mg PO QAM potassium chloride 20 mEq tablet,ER particles/crystals 20 meq PO DAILY amitriptyline 25 mg tablet 25 mg PO HS ferrous sulfate [iron] 325 mg (65 mg iron) Tablet 325 mg PO DAILY omeprazole 20 mg capsule,delayed release(DR/EC) 20 mg PO DAILY loratadine 10 mg tablet 10 mg PO DAILY calcium carbonate-vitamin D3 [Calcium 500 With D] 500 mg(1,250mg) -400 unit Tablet 1 tab PO DAILY Prolia 60 mg/mL Syringe 60 mg SUBCUT DIRECTED ascorbic acid (vitamin C) [Vitamin C] 500 mg Tablet 500 mg PO DAILY cholecalciferol (vitamin D3) [Vitamin D3] 25 mcg (1,000 unit) Tablet 25 mcg PO DAILY meloxicam 15 mg Tablet 15 mg PO DAILY prednisone 5 mg Tablet 5 mg PO DAILY cholestyramine (with sugar) 4 gram powder in packet 1 ea PO QAM Discontinued sulfamethoxazole-trimethoprim 800-160 mg tablet 1 tab PO BID Rx Instructions: Start Date 03/01/23 - End Date 03/11/23 ketoconazole 2 % cream 1 applic topical BID Qty: 60 0RF Discharge Orders: Discharge Order (Routine); Ordered 03/15/23 Ordered By: Maeve Casiano Admission Data Admit Date/Time: 03/05/23 20:54 Attending Provider: Francisco Ritter Admit Provider: Usman Sneed Primary Care Provider: Usha Mccrary Other Providers: Usman Sneed ; Vargas Mcdonaldotti,Nuria ; Sherry Perez ; Arthur Sharma ; Arlene Hillman ; Julien Cota ; Nazario Robin ; Carrol Melissa ; Jena Madrid V. ; Omaira Almanza ; Fiordaliza Leslie ; Adamaris Lopez ; Radha Garcia ; Isatu Muniz ; Ash Brand ; Romi Lutz ; Jena Gilmore ; Ronel Esteban Other Interventions: Discharge Summary Assessment (RN) Last Done: 03/15/23 15:41 Supervising Physician Co-Signing Physician Notes Pt seen and examined by myself, Francisco Ritter MD on the day of service. Care was coordinated with LEAH Shabazz. Please refer to her note for additional information. 77yoF with Hx of intellectual disbaility and healing vaginal ulcer in the setting of a Hx of bullous pemphigoid awaiting placement, who has also complete atb course for uti. Otherwise as above.
== END 2023-03-15 17:14 | DRG 758 ==
LOC: ED 14:24 → SUATTDRO 20:54 → EDINP 20:54 → 2N 23:39 → 3N 03-08 22:18
DX: F41.9 Anxiety disorder, unspecified; J45.40 Moderate persistent asthma, uncomplicated; N39.0 Urinary tract infection, site not specified; B95.2 Enterococcus as the cause of diseases classified elsewhere; F79 Unspecified intellectual disabilities; J44.9 Chronic obstructive pulmonary disease, unspecified; M19.90 Unspecified osteoarthritis, unspecified site; N76.0 Acute vaginitis; Z79.60 Long term (current) use of unspecified immunomodulators and immunosuppressants; M06.9 Rheumatoid arthritis, unspecified; L12.0 Bullous pemphigoid; Z79.899 Other long term (current) drug therapy; R73.9 Hyperglycemia, unspecified; Z88.0 Allergy status to penicillin; Z88.8 Allergy status to other drugs, medicaments and biological substances; D84.9 Immunodeficiency, unspecified; I10 Essential (primary) hypertension; B96.20 Unspecified Escherichia coli [E. coli] as the cause of diseases classified elsewhere